=== PATIENT | female | born 1965 | race Caucasian/White ===

== ENCOUNTER 2019-11-17 21:30 | Emergency (ER) | payer OTHER ==
[~2019-11-17] VITALS: Ht 170.2 cm; Wt 61.2 kg
--- OUTSIDE RECORDS SUMMARY | ~2019-11-17 | XMS | Encounter Summary ---
Demographics + + + | Address | [address] | | | [place] [address] | + + + | Home Phone | | + + + | Preferred Language | Unknown | + + + | Marital Status | Single | + + + | Evangelical Affiliation | NRP | + + + | Race | White | + + + | Ethnic Group | Not or | + + + Author + + + | Organization | Unknown | + + + | Address | Unknown | + + + | Phone | Unavailable | + + + Support + + +---------+ + | Name | Relationship | Address | Phone | + + +---------+ + | Citlali Montes De Oca | ECON | Unknown | | + + +---------+ + Care Team Providers + +------+ + | Care Bridge Contractor Name | Role | Phone | + +------+ + | Saumya Mohamud PA-C | | + +------+ + Encounter Details +--------+--------+ + + + | Date | Type | Department | Care Team | Description | +--------+--------+ + + + | 05/20/ | Travel | | | | | 2019 | | | | | +--------+--------+ + + + Social History + +-------+ +--------+------+ | Tobacco Use | Types | Packs/Day | Years | Date | | | | | Used | | + +-------+ +--------+------+ | Never Smoker | | | | | + +-------+ +--------+------+ + + +---+---+ | Smokeless Tobacco: | Chew, Snuff | | | | Never Used | | | | + + +---+---+ + + +---------+ + | Alcohol Use | Drinks/Week | oz/Week | Comments | + + +---------+ + | No | | | | + + +---------+ + + + + | Sex Assigned at | Date Recorded | | | | + + + | Not on file | | + + + + + + + | Job Start Date | Occupation | Industry | + + + + | Not on file | Not on file | Not on file | + + + + + + + + | Travel History | Travel Start | Travel End | + + + + + + | No recent travel history available. | + + documented as of this encounter Plan of Treatment Not on filedocumented as of this encounter Visit Diagnoses Not on filedocumented in this encounter"
--- OUTSIDE RECORDS SUMMARY | ~2019-11-17 | XMS | Encounter Summary ---
Demographics + + + | Address | [address] | | | [place] [address] | + + + | Home Phone | | + + + | Preferred Language | Unknown | + + + | Marital Status | Single | + + + | Adventist Affiliation | NRP | + + + | Race | White | + + + | Ethnic Group | Not or | + + + Author + + + | Author | [facility] | + + + | Organization | [facility] | + + + | Address | Unknown | + + + | Phone | Unavailable | + + + Support + + +---------+ + | Name | Relationship | Address | Phone | + + +---------+ + | Citlali Montes De Oca | ECON | Unknown | | + + +---------+ + Care Team Providers + +------+ + | Care Roof Bolting Coal Miner Name | Role | Phone | + +------+ + | Saumya Mohamud PA-C | PCP | | + +------+ + Reason for Visit + + + | Reason | Comments | + + + | Bone Density Scan | | + + + Encounter Details +--------+---------+ + + + | Date | Type | Department | Care Team | Description | +--------+---------+ + + + | 05/05/ | Office | Bone Density at | | Screening for | | 2018 | Visit | [facility] [address] | | osteoporosis | | | | e [place] for | | (Primary Dx); | | | | Health and Healing | | Depo-Provera | | | | [place] | | contraceptive status | | | | floor [place], [place] | | | | | | [address] | | | | | | [phone] | | | +--------+---------+ + + + Social History + +-------+ [...] + + documented as of this encounter Progress Regine Gonzalez - 05/05/2018 10:30 AM PDTBone density scans performed. DXA scan Images are located on the Imaging Tab (PACS), and when completed, the final Interp retation report will be scanned into [employer] and attached to the Images. Thank you. documented in this encoun ter Plan of Treatment Not on filedocumented as of this encounter Procedures + +--------+ + + + | Procedure Name | Priori | Date/Time | Associated Diagnosis | Comments | | | ty | | | | + +--------+ + + + | BONE DENSITOMETRY | Routin | 05/05/2018 | Depo-Provera | Results for this | | | e | 10:27 AM | contraceptive status | procedure are in the | | | | PDT | | results section. | + +--------+ + + + documented in this encounter Results BONE DENSITOMETRY (05/05/2018 10:27 AM PDT) + + | Specimen | + + | | + + + + + | Narrative | Performed At | + + + | | | + + + + +---------+ + + | Performing | Address | City/State/Zipcode | Phone Number | | Organization | | | | + +---------+ + + | [facility] | | | | + +---------+ + + documented in this encounter Visit Diagnoses + + | Diagnosis | + + | Screening for osteoporosis - Primary Special screening for osteoporosis | + + | Depo-Provera contraceptive status Surveillance of other previously prescribed | | contraceptive method | + + documented in this encounter"
--- OUTSIDE RECORDS SUMMARY | ~2019-11-17 | XMS | Encounter Summary ---
Demographics + + + | Address | [address] | | | [place] [address] | + + + | Home Phone | | + + + | Preferred Language | Unknown | + + + | Marital Status | Single | + + + | Zoroastrianism Affiliation | NRP | + + + | Race | White | + + + | Ethnic Group | Not or | + + + Author + + + | Author | [facility] | + + + | Organization | [facility] | + + + | Address | Unknown | + + + | Phone | Unavailable | + + + Support + + +---------+ + | Name | Relationship | Address | Phone | + + +---------+ + | Citlali Montes De Oca | ECON | Unknown | | + + +---------+ + Care Team Providers + +------+ + | Care Meters Superintendent Name | Role | Phone | + +------+ + | Saumya Mohamud PA-C | PCP | | + +------+ + Encounter Details +--------+ + + + + | Date | Type | Department | Care Team | Description | +--------+ + + + + | 08/03/ | Telephone | [facility] Primary Care | Suzette Causey, | | | 2019 | | at [place] [address] | [address] | | | | [address] | [address] | | | | | [place], [place] | [place], [place] | | | | | [address] | [phone] | | | | | | | | | | | | (Fax) | | +--------+ + + + + Social History + +-------+ [...]
--- OUTSIDE RECORDS SUMMARY | ~2019-11-17 | XMS | Encounter Summary ---
Demographics + + + | Address | [address] | | | [place] [address] | + + + | Home Phone | | + + + | Preferred Language | Unknown | + + + | Marital Status | Single | + + + | Synagogue Affiliation | NRP | + + + [...] Team Providers + +------+ + | Care Flight Physician Name | Role | Phone | + +------+ + | Saumya Mohamud PA-C | | + +------+ + Encounter Details +--------+--------+ + + + | Date | Type | Department | Care Team | Description | +--------+--------+ + + + | 03/05/ | Travel | | | | | [...]
--- OUTSIDE RECORDS SUMMARY | ~2019-11-17 | XMS | Encounter Summary ---
Demographics + + + | Address | [address] | | | [place] [address] | + + + | Home Phone | | + + + | Preferred Language | Unknown | + + + | Marital Status | Single | + + + | Druze Affiliation | NRP | + + + | Race | White | + + + | Ethnic Group | Not or | + + + Author + + + | Author | [facility] | + + + | Organization | [facility] | + + + | Address | Unknown | + + + | Phone | Unavailable | + + + Support + + +---------+ + | Name | Relationship | Address | Phone | + + +---------+ + | Citlali Montes De Oca | ECON | Unknown | | + + +---------+ + Care Team Providers + +------+ + | Care Slubber Operator Name | Role | Phone | + +------+ + | Saumya Mohamud PA-C | PCP | | + +------+ + Encounter Details +--------+ + + + + | Date | Type | Department | Care Team | Description | +--------+ + + + + | 08/03/ | Telephone | [facility] Primary Care | Suzette Causey, | | | 2019 | | at [place] [address] | [address] | | | | [address] | [address] | | | | | [place], [place] | [place], [place] | | | | | [address] | [address] | | | | | | | [...]
--- OUTSIDE RECORDS SUMMARY | ~2019-11-17 | XMS | Encounter Summary ---
Demographics + + + | Address | [address] | | | [place] [address] | + + + | Home Phone | | + + + | Preferred Language | Unknown | + + + | Marital Status | Single | + + + | Episcopal Affiliation | NRP | + + + | Race | White | + + + | Ethnic Group | Not or | + + + Author + + + | Author | [facility] | + + + | Organization | [facility] | + + + | Address | Unknown | + + + | Phone | Unavailable | + + + Support + + +---------+ + | Name | Relationship | Address | Phone | + + +---------+ + | Citlali Montes De Oca | ECON | Unknown | | + + +---------+ + Care Team Providers + +------+ + | Care Fisher Eel Spear Name | Role | Phone | + +------+ + | Saumya Mohamud PA-C | PCP | | + +------+ + Encounter Details +--------+ + + + + | Date | Type | Department | Care Team | Description | +--------+ + + + + | 02/27/ | Hospital | Radiology/Imaging | Saumya Mohamud, | | | 2017 | Encounter | at [place] [address] | [place] [address] | | | | [address] | [address] | | | | | [address] [place], | [place], [place] | | | | | [place] [address] | [address] | | | | | [phone] | [phone] | | | | | | (Fax) [...] + + documented as of this encounter Medications at Time of Discharge + + + +---------+ + + | Medication | Sig | Dispensed | Refills | Start | End Date | | | | | | Date | | + + + +---------+ + + | amoxicillin 500 mg | Take 2 capsules by | | 0 | 02/27/20 | | | oral capsule | mouth once daily. | | | 18 | 8 | | | For 10 days | | | | | + + + +---------+ + + | metroNIDAZOLE 500 | Take 1 tablet by | 14 | 0 | 02/24/20 | | | mg oral | mouth every twelve | tablet | | 18 | 8 | | tabletIndications: | hours for 7 days. | | | | | | bacterial vaginosis, | Indications: | | | | | | trichomoniasis | bacterial infection, | | | | | | | bacterial infection | | | | | + + + +---------+ + + documented as of this encounter Plan of Treatment Not on filedocumented as of this encounter Procedures + +--------+ + + + | Procedure Name | Priori | Date/Time | Associated Diagnosis | Comments | | | ty | | | | + +--------+ + + + | X-RAY FOOT 2 VIEWS | Routin | 02/27/2018 | Jose Cruzion of great | Results for this | | LEFT | e | 8:57 AM | toe of left foot | procedure are in the | | | | PDT | | results section. | + +--------+ + + + documented in this encounter Results X-RAY FOOT 2 VIEWS LEFT (02/27/2018 8:57 AM PDT) + + | Specimen | + + | | + + + + + | Narrative | Performed At | + + + | EXAM: FOOT 2 VIEWS LEFT HISTORY: Bone pain, foot COMPARISON: | [facility] | | None available at the time of dictation. FINDINGS: There is | RADIOLOGY VOICE | | no fracture, dislocation, or focal osseous destruction. Hallux valgus | RECOGNITION 2 | | deformity with osseous and soft tissue bunion and a superimposed mild | | | first MTP joint degenerative changes are noted. There are also mild | | | degenerative changes of the first interphalangeal joint. There are | | | prominent calcaneal dorsal and plantar enthesophytes. Type I accessory | | | navicular. IMPRESSION: 1. No acute osseous abnormality. | | | 2. Hallux valgus deformity with osseous and soft tissue bunion. 3. | | | Mild first MTP and IP joint degenerative changes 4. Calcaneal | | | dorsal and plantar enthesopathy.. I have personally reviewed the | | | images and, if necessary, edited the report. I agree with the report | | | as now presented. Final signature: Odilon Becerra MD | | | 02/27/2018 9:56 AM Preliminary: Lan Dick MD Dictation | | | initiated: Lan Dick MD 02/27/2018 9:21 AM | | + + + + + | Procedure Note | + + | Service Account, Radiant Res In Interface - 02/27/2018 9:57 AM PDT EXAM: FOOT 2 | | VIEWS LEFT HISTORY: Bone pain, foot COMPARISON: None available at the time of dictation. | | FINDINGS: There is no fracture, dislocation, or focal osseous destruction. Hallux | | valgus deformity with osseous and soft tissue bunion and a superimposed mild first MTP | | joint degenerative changes are noted. There are also mild degenerative changes of the | | first interphalangeal joint. There are prominent calcaneal dorsal and plantar | | enthesophytes. Type I accessory navicular. IMPRESSION: 1. No acute osseous abnormality. | | 2. Hallux valgus deformity with osseous and soft tissue bunion. 3. Mild first MTP and | | IP joint degenerative changes 4. Calcaneal dorsal and plantar enthesopathy.. I have | | personally reviewed the images and, if necessary, edited the report. I agree with the | | report as now presented. Final signature: Odilon Becerra MD 02/27/2018 9:56 AM | | Preliminary: Lan Dick MD Dictation initiated: Lan Dick MD 02/27/2018 9:21 AM | | | |1. No acute osseous abnormality. | | | |2. Hallux valgus deformity with osseous and soft tissue bunion. | | | |3. Mild first MTP and IP joint degenerative changes | | | |4. Calcaneal dorsal and plantar enthesopathy.. | | | |I have personally reviewed the images and, if necessary, edited the report. I agree with e report as now presented. | | | |Final signature: Odilon Becerra MD 02/27/2018 9:56 AM | |Preliminary: Lan Dick MD | |Dictation initiated: Lan Dick MD 02/27/2018 9:21 AM | + + + +---------+ + + | Performing | Address | City/State/Zipcode | Phone Number | | Organization | | | | + +---------+ + + | [facility] | | | | | VOICE RECOGNITION 2 | | | | + +---------+ + + documented in this encounter Visit Diagnoses + + | Diagnosis | + + | Bunion of great toe of left foot Bunion | + + documented in this encounter"
--- OUTSIDE RECORDS SUMMARY | ~2019-11-17 | XMS | Encounter Summary ---
Demographics + + + | Address | [address] | | | [place] [address] | + + + | Home Phone | | + + + | Preferred Language | Unknown | + + + | Marital Status | Single | + + + | Yazidism Affiliation | NRP | + + + | Race | White | + + + | Ethnic Group | Not or | + + + Author + + + | Author | [facility] | + + + | Organization | [facility] | + + + | Address | Unknown | + + + | Phone | Unavailable | + + + Support + + +---------+ + | Name | Relationship | Address | Phone | + + +---------+ + | Citlali Montes De Oca | ECON | Unknown | | + + +---------+ + Care Team Providers + +------+ + | Care Beam Dyer Recessed Vat Name | Role | Phone | + +------+ + | Saumya Mohamud PA-C | PCP | | + +------+ + Reason for Referral Physical Therapy (Routine) +--------+--------+ + + + + | Status | Reason | Specialty | Diagnoses / | Referred By | Referred To | | | | | Procedures | Contact | Contact | +--------+--------+ + + + + | Closed | | Physical | Diagnoses | Hilal, | [facility] | | | | Therapy | | MD Lisa | [facility] | | | | | Osteoarthrit | [address] | [address] | | | | | is of both | [facility] | [address] | | | | | shoulders, | Rd | [place] | | | | | unspecified | [place], [place] | [address] | | | | | osteoarthrit | [address] | Phone: | | | | | is type | Phone: | [phone] | | | | | Strain of | [phone] | Fax: | | | | | other | Fax: | [phone] | | | | | muscles, | [phone] | | | | | | fascia and | | | | | | | tendons at | | | | | | | shoulder and | | | | | | | upper arm | | | | | | | level, right | | | | | | | arm, | | | | | | | initial | | | | | | | encounter | | | | | | | Procedures | | | | | | | PHYSICAL | | | | | | | THERAPY | | | | | | | REFERRAL | | | | | | | EVAL AND | | | | | | | TREAT | | | +--------+--------+ + + + + Reason for Visit + + + | Reason | Comments | + + + | Back pain | | + + + Encounter Details +--------+---------+ + + + | Date | Type | Department | Care Team | Description | +--------+---------+ + + + | 05/20/ | Office | [facility] Primary Care | Lisa Gutiérrez MD | Strain of right | | 2019 | Visit | at [place] [address] | [address] | trapezius muscle, | | | | [address] | [address] [place], | initial encounter | | | | [place], [place] | [place] [address] | (Primary Dx); | | | | [address] | [phone] | Arthritis of | | | | [phone] | | glenohumeral joint; | | | | | | Primary | | | | | | osteoarthritis of | | | | | | both shoulders; | | | | | | Elevated blood | | | | | | pressure reading | +--------+---------+ + + + Social History [...] + + documented as of this encounter Last Filed Vital Signs + + + + + | Vital Sign | Reading | Time Taken | Comments | + + + + + | Blood Pressure | 148/64 | 05/20/2019 2:05 PM | | | | | PDT | | + + + + + | Pulse | 114 | 05/20/2019 2:05 PM | | | | | PDT | | + + + + + | Temperature | 36.8 C (98.3 F) | 05/20/2019 2:05 PM | | | | | PDT | | + + + + + | Respiratory Rate | - | - | | + + + + + | Oxygen Saturation | - | - | | + + + + + | Inhaled Oxygen | - | - | | | Concentration | | | | + + + + + | Weight | 63 kg (139 lb) | 05/20/2019 2:05 PM | | | | | PDT | | + + + + + | Height | - | - | | + + + + + | Body Mass Index | - | - | | + + + + + documented in this encounter Progress Notes Star Leon MD - 05/20/2019 2:00 PM PDTFormatting of this note might be different fro m the original. Attending Preceptor Resident Supervision Note I am familiar with this patient's medical history and the current active problems as discus sed with Lisa Gutiérrez MD. We reviewed the assessment and plan and I agree with the plan as outlined. ICD-10-CM 1. Strain of right trapezius muscle, initial encounter S46.811A cyclobenzaprine 5 mg oral t ablet PHYSICAL THERAPY REFERRAL naproxen 500 mg oral tablet 2. Arthritis of glenohumeral joint M19.019 PHYSICAL THERAPY REFERRAL naproxen 500 mg oral tablet 3. Primary osteoarthritis of both shoulders M19.011 naproxen 500 mg oral tablet M19.012 4. Elevated blood pressure reading R03.0 I entered my findings as needed, and agree with the documentation as noted in this encounte rAva LEON MD, FAAFP P M CYNDEELisa Gutiérrez MD - 05/20/2019 2:00 PM PDTFormatting of this note might be different fr om the original. [facility] [place] SUBJECTIVE CC: Back pain HPI: #Back pain - having a hard time moving her head and a lot of pain in her neck head and shoulders - going on the for the past week or so - Not sure if its related to her arthritis in her shoulders - Had a steroid shot in her right shoulder, never got the one in her left shoulder - First thing she noticed a week ago - first noticed in her back of her neck, then noticed in her shoulder - Worse with movement, a heating pad helps - Movements that make it worse: turning her head, using her arms - No big accidents, falls or trauma - NO fevers or chills, has chronic numbness or tingling in her hands, has been having a shara d time lifing things due to pain ROS: all systems negative per patient report No past medical history on file. Social History Socioeconomic History Marital status: Single Spouse name: Not on file Number of children: Not on file Years of education: Not on file Highest education level: Not on file Occupational History Not on file Social Needs Financial resource strain: Not on file Food insecurity: Worry: Not on file Inability: Not on file Transportation needs: Medical: Not on file Non-medical: Not on file Tobacco Use Smoking status: Never Smoker Smokeless tobacco: Never Used Substance and Sexual Activity Alcohol use: No Drug use: No Sexual activity: Yes Partners: Male Lifestyle Physical activity: Days per week: Not on file Minutes per session: Not on file Stress: Not on file Relationships Social connections: Talks on phone: Not on file Gets together: Not on file Attends uatsdin service: Not on file Active member of club or organization: Not on file Attends meetings of clubs or organizations: Not on file Relationship status: Not on file Other Topics Concern Not on file Social History Narrative Not on file No Known Allergies OBJECTIVE BP 148/64 (BP Location: Right upper arm, Patient Position: Sitting) | Pulse 114 | Temp 36 .8 C (98.3 F) (Oral) | Wt 63 kg (139 lb) There is no height or weight on file to calculate BMI. Physical Exam Constitutional: General: She is not in acute distress. Appearance: She is well-developed. She is not diaphoretic. HENT: Head: Normocephalic and atraumatic. Eyes: General: No scleral icterus. Right eye: No discharge. Left eye: No discharge. Conjunctiva/sclera: Conjunctivae normal. Neck: Musculoskeletal: Normal range of motion. No neck rigidity or muscular tenderness. Vascular: No JVD. Pulmonary: Effort: Pulmonary effort is normal. No respiratory distress. Musculoskeletal: General: No deformity. Comments: Tender to palpation along L trap Full cervical ROM 5/5 strength in UE, sensation intact, radial pulses palpable, cap refill < 2 seconds Lymphadenopathy: Cervical: No cervical adenopathy. Skin: General: Skin is warm and dry. Capillary Refill: Capillary refill takes less than 2 seconds. Findings: No erythema. Neurological: Mental Status: She is alert and oriented to person, place, and time. Psychiatric: Behavior: Behavior normal. Thought Content: Thought content normal. ASSESSMENT/PLAN Misty was seen today for back pain. Diagnoses and all orders for this visit: Strain of right trapezius muscle, initial encounter Arthritis of glenohumeral joint Suspect musculoskeletal strain given physical exam and distribution of pain. Full cervical ROM and no loss of sensation or neurologic findings concerning for herniated disc. Trigger p oint injections along medial aspect of right trapezius and given short course muscle relaxer and referral to PT. - cyclobenzaprine 5 mg oral tablet; Take 1 tablet by mouth three times daily as needed. Do not use longer than 2-3 weeks. - PHYSICAL THERAPY REFERRAL - naproxen 500 mg oral tablet; Take 1 tablet by mouth twice daily as needed for moderat e pain. Procedure: A series of 3 trigger point injections were performed at the sites of maximal tenderness us ing 4 mL 1% plain Lidocaine This was well tolerated, and followed by minimal relief of pain . Elevated blood pressure reading BP on review has been in 140's systolic for the past several readings, discussed with patie nt today and encouraged to check BP at home and follow up with PCP. Suspect essential hypert ension. Return in about 1 month (around 06/20/2019). Lisa Gutiérrez MD [facility], PGY-3 Pager [phone] signed by Lisa Gutiérrez MD at 05/20/2019 5:55 PM Mitzi Buenrostro MA - 05/20/2019 2:00 PM PDTPt is here for back pain X 5 days documented in this encounter Plan of Treatment Not on filedocumented as of this encounter Visit Diagnoses + + | Diagnosis | + + | Strain of right trapezius muscle, initial encounter - Primary | + + | Arthritis of glenohumeral joint | + + | Primary osteoarthritis of both shoulders | + + | Elevated blood pressure reading Elevated blood pressure reading without diagnosis of | | hypertension | + + documented in this encounter"
--- OUTSIDE RECORDS SUMMARY | ~2019-11-17 | XMS | Encounter Summary ---
Demographics + + + | Address | [address] | | | [place] [address] | + + + | Home Phone | | + + + | Preferred Language | Unknown | + + + | Marital Status | Single | + + + | Bahai Affiliation | NRP | + + + | Race | White | + + + | Ethnic Group | Not or | + + + Author + + + | Author | [facility] | + + + | Organization | [facility] | + + + | Address | Unknown | + + + | Phone | Unavailable | + + + Support + + +---------+ + | Name | Relationship | Address | Phone | + + +---------+ + | Citlali Montes De Oca | ECON | Unknown | | + + +---------+ + Care Team Providers + +------+ + | Care Recruiting Assistant Name | Role | Phone | + +------+ + | Saumya Mohamud PA-C | PCP | | + +------+ + Reason for Visit + + + | Reason | Comments | + + + | Rib Pain | | + + + Encounter Details +--------+---------+ + + + | Date | Type | Department | Care Team | Description | +--------+---------+ + + + | 02/08/ | Office | [facility] Primary [facility] | Rickey, | Acute right flank | | 2019 | Visit | at [place] [address] | Saud Loja PA-C | pain (Primary Dx); | | | | [address] | [address] | Primary | | | | [address] [place], [place] | [address] | osteoarthritis of | | | | [address] | [place] | both shoulders; | | | | [phone] | [address] | Primary | | | | | [phone] | osteoarthritis of | | | | | | both hands | +--------+---------+ + + + Social History [...] + + + | Blood Pressure | 130/86 | 02/08/2019 8:47 AM | | | | | PDT | | + + + + + | Pulse | 100 | 02/08/2019 8:47 AM | | | | | PDT | | + + + + + | Temperature | 36.9 C (98.5 F) | 02/08/2019 8:47 AM | | | | | PDT | | + + + + + | Respiratory Rate | 14 | 02/08/2019 8:47 AM | | | | | PDT | | + + + + + | Oxygen Saturation | - | - | | + + + + + | Inhaled Oxygen | - | - | | | Concentration | | | | + + + + + | Weight | 60.8 kg (134 lb) | 02/08/2019 8:47 AM | | | | | PDT | | + + + + + | Height | - | - | | + + + + + | Body Mass Index | - | - | | + + + + + documented in this encounter Patient Instructions Patient Instructions Saud Lang PA-C - 02/08/2019 8:45 AM PDTYour urine studie s are reassuring today that the urinary tract infection has resolved. However, if you start having a return of any urinary frequency, pain with peeing, blood in your urine or worsenin g flank pain or fever, then return to clinic for follow up. Please schedule your appointment with the Sports Medicine provider for your steroid injecti on as previously planned. documented in this encounter Progress Notes Saud Lang PA-C - 02/08/2019 8:45 AM PDTAttending Preceptor Supervision Note Patient was seen and examined with ZOILA Mckay. Briefly, a 53 y.o. year old female with the following diagnoses: 1. Acute right flank pain - UA 10 DIP, POC 2. Primary osteoarthritis of both shoulders - naproxen 500 mg oral tablet; Take 1 tablet by mouth twice daily as needed for moderate pa in. Dispense: 40 tablet; Refill: 2 3. Primary osteoarthritis of both hands A student assisted with documenting this service. I saw the patient and reviewed and verif ied all information documented by the student and made modifications to such information, wh en appropriate. I agree with the documentation of the medical/PA student's note. Return in about 2 weeks (around 02/22/2019), or if symptoms worsen or fail to improve, for [facility] follow up.. ANN Mendoza, VINI-CElectronically signed by Saud Lang PA-C at 2018 12:29 PM Jayda Leonard - 02/08/2019 8:45 AM PDT SUBJECTIVE CC: Rib Pain HPI: 53 yo female with PMHx sig for prior kidney infections and osteoarthritis presents for R sided flank pain x months Previously seen at the ED on 12/21 for UTI and treated with Augmentin. Pt then return to the ED on 01/05 for continued R flank pain after finishing Augmentin. At that ED visit her UA wa s negative except for calcium oxalte. A CT showed possible perinephritic stranding and neg f or stones or hydronephrosis. Pt was given acetaminophen and discharged home. Today pt states that she has continued intermittent R sided flank pain but she cannot think of a specific trigger but could be related to her lifting heavy objects at work. Denies fev ers, chills, hematuria, dysuria, changes in bowel or bladder. Pt also states that for the last two weeks she has been having L sided anterior rib pain. N o injury noted. Described as a dull ache. Had an episode where it was very painful for her t o sit up straight. Overall improving. Endorses pain with deep breathing. Denies SOB, cough, abd pain. Chronic Arthritis pain in her shoulder and hands is making is hard for her work. Has been t aking meloxicam prescribed by her PCP which she is not sure if it helps. Have been trying to make an appt with sports medicine to get shoulder injections but has been unable to make it due to her work schedule. Review of Systems Constitutional: Negative for chills and fever. Respiratory: Negative for cough, sputum production and shortness of breath. Cardiovascular: Negative for chest pain and palpitations. Gastrointestinal: Negative for abdominal pain, constipation and diarrhea. Genitourinary: Positive for flank pain. Negative for dysuria, frequency, hematuria and urge ncy. Musculoskeletal: Positive for joint pain. 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 Physical Exam Constitutional: She appears well-developed and well-nourished. No distress. HENT: Head: Normocephalic and atraumatic. Pulmonary/Chest: Effort normal and breath sounds normal. No stridor. No respiratory distres s. She has no wheezes. She has no rales. She exhibits no tenderness. Abdominal: Soft. Bowel sounds are normal. She exhibits no distension and no mass. There is no tenderness. There is no rebound and no guarding. Musculoskeletal: Hands: L: no erythema, edema, or ulnar deviation, DIP tender to palpation. Full ROM R: no erythema, edema, or ulnar deviation, DIP tender to palpation. Full ROM Skin: She is not diaphoretic. Urine dipstick today 02/08 shows negative for all components. ASSESSMENT/PLAN Misty was seen today for rib pain. Diagnoses and all orders for this visit: Acute right flank pain- etiology R sided flank pain unknown but differential includes larisa nued UTI pain s/p treatment with antibiotics, musculoskeletal, recurrent UTI, or other. Less likely to be recurrent UTI given history and negative urine dipstick in clinic. More likely to be continued pain s/p antibiotic treatment or musculoskeletal given the waxing-waning na ture of pain and physical demands of her job. Encouraged go stretching and NSAIDs if pain co ntinues. Discussed that patient should call or return to clinic if she begins to get worseni ng pain or urinary symptoms. - UA 10 DIP, POC Primary osteoarthritis of both hands Primary osteoarthritis of both shoulders- Chronic arthritis pain. Last imaging 12/13 shows s evere bilateral glenohumeral osteoarthritis and bilateral osteoarthritis of the hands. Will help patient make appt with sports medicine. Trial of naproxen due to meloxicam not providin g much benefit. - naproxen 500 mg oral tablet; Take 1 tablet by mouth twice daily as needed for moderat e pain. Return in about 2 weeks (around 02/22/2019), or if symptoms worsen or fail to improve, for [facility] follow up.. Jayda MARTINI Student imson, [place] MA - 8:45 AM PDTPt has left side rib pain. Was seen twice at ED for bladder infection. Pt states she still has symptoms 1 2:29 PM PDTdocumented in this encounter Plan of Treatment Not on filedocumented as of this encounter Procedures + +--------+ + + + | Procedure Name | Priori | Date/Time | Associated Diagnosis | Comments | | | ty | | | | + +--------+ + + + | UA DIPSTICK 10 DIP | Routin | 02/08/2019 | Acute right flank | Results for this | | W/O MICRO | e | 9:26 AM | pain | procedure are in the | | (AUTOMATED), POC | | PDT | | results section. | + +--------+ + + + documented in this encounter Results UA 10 DIP, POC (02/08/2019 9:26 AM PDT) + + + + + + | Component | Value | Ref Range | Performed | Pathologist | | | | | At | Signature | + + + + + + | COLOR (UA | Yellow | | [facility] | | | DIP), POC | | | [facility] | | [facility] | | + + + + + + | APPEARANCE | Clear | | [facility] | | | (UA DIP), | | | [facility] | | | POC | | | [facility] | | + + + + + + | LEUKOCYTES | Negative | Negative | [facility] | | | (UA DIP), | | | [facility] | | | POC | | | [facility] | | + + + + + + | NITRITES | Negative | Negative | [facility] | | | (UA DIP), | | | [facility] | | | POC | | | [facility] | | + + + + + + | UROBILINOGE | 0.2 | 0.2 - 1.0 | [facility] | | | N (UA DIP), | | E.U./dL | [facility] | | | POC | | | [facility] | | + + + + + + | PROTEIN (UA | Negative | Neg - Trace | [facility] | | | DIP), POC | | mg/dL | [facility] | | | | [facility] | | + + + + + + | PH (UA | 6.0 | 5.0 - 8.0 | [facility] | | | DIP), POC | | | [facility] | | | | [facility] | | + + + + + + | BLOOD (UA | Negative | Negative | [facility] | | | DIP), POC | | | [facility] | | + + + + + + | SPECIFIC | 1.020 | 1.005 - 1.030 | [facility] | | | GRAVITY (UA | | | [facility] | | | DIP), POC | | | CLINIC | | + + + + + + | KETONES (UA | Negative | Negative mg/dL | [facility] | | | DIP), POC | | | [facility] | | | | [facility] | | + + + + + + | BILIRUBIN | Negative | Negative | [facility] | | | (UA DIP), | | | [facility] | | | POC | | | [facility] | | + + + + + + | GLUCOSE (UA | Negative | Negative - | [facility] | | | DIP), POC | | Trace mg/dL | [facility] | | | | [facility] | | + + + + + + + + | Specimen | + + | Urine - Urine | | (substance) | + + + + + + + | Performing | Address | City/State/Zipcode | Phone Number | | Organization | | | | + + + + + | [facility] | [id number] | [place], [place] | [phone] | | [facility] | Road | [address] | | + + + + + documented in this encounter Visit Diagnoses + + | Diagnosis | + + | Acute right flank pain - Primary Abdominal pain, unspecified site | + + | Primary osteoarthritis of both shoulders | + + | Primary osteoarthritis of both hands | + + documented in this encounter"
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
--- OUTSIDE RECORDS SUMMARY | ~2019-11-17 | XMS | Encounter Summary ---
Demographics + + + | Address | [address] | | | [place] [address] | + + + | Home Phone [...] Team Providers + +------+ + | Care Trade Sales Assistant Name | Role | Phone | + +------+ + | Saumya Mohamud PA-C | PCP | | + +------+ + Reason for Visit + + + | Reason | Comments | + + + | Evaluation of test | | | results | | + + + Encounter Details +--------+ + + + + | Date | Type | Department | Care Team | Description | +--------+ + + + + | 05/10/ | Telephone | [facility] | Saumya Mohamud, | Evaluation of test | | 2019 | | at [place] [address] | PA-C [address] | results | | | | [address] | [address] | | | | | [place], [place] | [place], [place] | | | | | [address] | [address] | | | | | [phone] | [phone] | | | | | | | | +--------+ + + + + [...]
--- OUTSIDE RECORDS SUMMARY | ~2019-11-17 | XMS | Encounter Summary ---
Demographics + + + | Address | [address] | | | [place] [address] | + + + | Home Phone | | + + + | Preferred Language | Unknown | + + + | Marital Status | Single | + + + | Orthodoxy Affiliation | NRP | + + + | Race | White | + + + | Ethnic Group | Not or | + + + Author + + + | Author | [facility] | + + + | Organization | [facility] | + + + | Address | Unknown | + + + | Phone | Unavailable | + + + Support + + +---------+ + | Name | Relationship | Address | Phone | + + +---------+ + | Citlali Montes De Oca | ECON | Unknown | | + + +---------+ + Care Team Providers + +------+ + | Care Evaporative Cooler Installer Name | Role | Phone | + +------+ + | Saumya Mohamud PA-C | PCP | | + +------+ + Reason for Referral Consultation (Routine) +--------+--------+ + + + + | Status | Reason | Specialty | Diagnoses / | Referred By | Referred To | | | | | Procedures | Contact | Contact | +--------+--------+ + + + + | Closed | | Non [facility] | Diagnoses | [place], | [place], | | | | Department | Bunion of | Saumya Feliz, | Beltran Gross DPM | | | | | great toe of | [place] [address] | [place] | | | | | left foot | [address] | Orthopedic | | | | | PLEASE EVAL | [facility] | [facility] [address] | | | | | AND TREAT | [place], | [address] | | | | | Procedures | [place] | [address] | | | | | CONSULT TO | [address] | EMMANUEL [facility] | | | | | PODIATRY | Phone: | [phone] Phone: | | | | | | [phone] | [phone] | | | | | | Fax: | Fax: | | | | | | [phone] | [phone] | +--------+--------+ + + + + Reason for Visit + + + | Reason | Comments | + + + | Referral Needed | | + + + Encounter Details +--------+---------+ + + + | Date | Type | Department | Care Team | Description | +--------+---------+ + + + | 02/27/ | Office | [facility] Primary Care | Saumya Mohamud, | Bunion of great toe | | 2018 | Visit | at [place] [address] | [place] [address] [address] | of left foot | | | | [address] | [address] | (Primary Dx); | | | | [place] [address] [place], [place] | [place], [place] | Tetanus, diphtheria, | | | | [address] | [phone] | and acellular | | | | [phone] | [phone] | pertussis (Tdap) | | | | | | vaccination | | | | | | declined; Cervical | | | | | | cancer screening; | | | | | | Depo-Provera | | | | | | contraceptive | | | | | | status; Colon cancer | | | | | | screening | +--------+---------+ + + + Social History [...] + + + | Blood Pressure | 112/68 | 02/27/2018 8:02 AM | | | | | PDT | | + + + + + | Pulse | 93 | 02/27/2018 8:02 AM | | | | | PDT | | + + + + + | Temperature | 36.7 C (98.1 F) | 02/27/2018 8:02 AM | | | | | PDT | | + + + + + | Respiratory Rate | - | - | | + + + + + | Oxygen Saturation | 99% | 02/27/2018 8:02 AM | | | | | PDT | | + + + + + | Inhaled Oxygen | - | - | | | Concentration | | | | + + + + + | Weight | 64.6 kg (142 lb 6.4 | 02/27/2018 8:02 AM | | | | oz) | PDT | | + + + + + | Height | - | - | | + + + + + | Body Mass Index | - | - | | + + + + + documented in this encounter Progress Notes Suamya Mohamud PA-C - 02/27/2018 8:05 AM PDT SUBJECTIVE: Chief complaint: Referral Needed Misty Watkins is a 52 y.o. nonsmoker who presents with chronic left bunion pain x years, a nd need for bone density screening 1. Left bunion Had bunion surgery on right foot a couple years ago at [place] which was very successful and is now pain-free on the right Still having bunion on left foot, interested in surgery for left side Better with: rest, ice, NSAIDs (no AE), supportive shoes Worse with: overuse, too much time on feet Lots of bunions in her family 2. 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 At the first sign of an outbreak, Disp: , Rfl: amoxicillin 500 mg oral capsule, Take 2 capsules by mouth once daily. For 10 days, Disp: , Rfl: lidocaine HCl 2 % topical cream, Apply to affected area., Disp: , Rfl: medroxyPROGESTERone 150 mg/mL intramuscular suspension, Inject into the muscle (IM)., Disp: , Rfl: meloxicam 15 mg oral tablet, Take by mouth., Disp: , Rfl: metroNIDAZOLE 500 mg oral tablet, Take 1 tablet by mouth every twelve hours for 7 days. Ind ications: bacterial infection, bacterial infection, Disp: 14 tablet, Rfl: 0 naproxen 500 mg oral tablet, Take by mouth., Disp: , Rfl: OBJECTIVE: Filed Vitals: 02/27/2018 8:02 AM Weight: 64.6 kg (142 lb 6.4 oz) BP: 112/68 Pulse: 93 Temp: 36.7 C (98.1 F) TempSrc: Oral SpO2: 99% PainSc: 06 - Severe PainLoc: Foot (Left) GA: Alert, no apparent distress. Speaks easily and freely, moves easily around exam room. Eye: conjunctivae pink, sclerae anicteric, noninjected. Lids without edema or erythema or m asses. ENT: Nose symmetric no deviation. Hearing intact to normal conversation level. Resp: No retractions, full inspiratory effort.. CV: Skin pink & warm. Cap refill brisk left toes. MSK: Significant hallux valgus left great toe MTP with some overlying skin irritation and e rythema at protrusion of bone/joint. Full AROM left toes. +mild TTP. No swelling, bleeding, discharge. Gait symmetric, appropriate. Neuro: No gross focal deficits, TREADWELL. Sensation intact to light touch left toes. Psych: Good eye contact, affect & mood appropriate, judgement & insight grossly intact, no thought disorder. Oriented to person, place and time. Memory recall appropriate. ASSESSMENT/PLAN: Misty was seen today for referral needed. Diagnoses and all orders for this visit: Bunion of great toe of left foot Comments: Pt interested in surgical options; had successful surgery on right bunion a couple years ag o. Continue ice, NSAIDs, supportive shoes Orders: - X-RAY FOOT 2 VIEWS LEFT; Future - CONSULT TO PODIATRY Tetanus, diphtheria, and acellular pertussis (Tdap) vaccination declined Cervical cancer screening Comments: Due; make appt anytime for pap test Depo-Provera contraceptive status - BONE DENSITOMETRY; Future Colon cancer screening Comments: Pt states she has FIT card and will bring it in; doesn't want another one Reviewed s/s to come back in. If new/worse/persistent symptoms, come back in. Return if symptoms worsen or fail to improve, for left bunion. documented in this encounter Plan of Treatment Not on filedocumented as of this encounter Results BONE DENSITOMETRY (05/05/2018 10:27 [...] | | | + +---------+ + + X-RAY FOOT 2 VIEWS LEFT (02/27/2018 8:57 [...] necessary, edited the report. I agree with th e report as now presented. | | [...] Bunion of great toe of left foot - Primary Bunion | + + | Tetanus, diphtheria, and acellular pertussis (Tdap) vaccination declined | + + | Cervical cancer screening Screening for malignant neoplasm of the cervix | + + | Depo-Provera contraceptive status Surveillance of other previously prescribed | | contraceptive method | + + | Colon cancer screening Special screening for malignant neoplasms, colon | + + documented in this encounter"
--- OUTSIDE RECORDS SUMMARY | ~2019-11-17 | XMS | Encounter Summary ---
Demographics + + + | Address | [address] | | | [place] [address] | + + + | Home Phone | | + + + | Preferred Language | Unknown | + + + | Marital Status | Single | + + + | Catholic Affiliation | NRP | + + + | Race | White | + + + | Ethnic Group | Not or | + + + Author + + + | Author | [facility] | + + + | Organization | [facility] | + + + | Address | Unknown | + + + | Phone | Unavailable | + + + Support + + +---------+ + | Name | Relationship | Address | Phone | + + +---------+ + | Citlali Montes De Oca | ECON | Unknown | | + + +---------+ + Care Team Providers + +------+ + | Care Customer Strategy Manager Name | Role | Phone | + +------+ + | Saumya Mohamud PA-C | PCP | | + +------+ + Reason for Visit + + + | Reason | Comments | + + + | Vaginal discharge | yellowish | + + + Encounter Details +--------+---------+ + + + | Date | Type | Department | Care Team | Description | +--------+---------+ + + + | 02/20/ | Office | [facility] | Reece, | Vaginal discharge | | 2018 | Visit | at [place] [address] | Edilma Feliz MD | (Primary Dx); | | | | [address] | [address] | Screening for | | | | Dylan [address] [place], [place] | [address] | malignant neoplasm | | | | [address] | [place], [place] | of colon; Elevated | | | | [phone] | [phone] | blood-pressure | | | | | [phone] | reading without | | | | | | diagnosis of | | | | | | hypertension | +--------+---------+ + + + Social History [...] + + + | Blood Pressure | 146/100 | 02/20/2018 1:18 PM | | | | | PDT | | + + + + + | Pulse | 90 | 02/20/2018 1:18 PM | | | | | PDT | | + + + + + | Temperature | 36.7 C (98 F) | 02/20/2018 1:18 PM | | | | | PDT | | + + + + + | Respiratory Rate | 15 | 02/20/2018 1:18 PM | | | | | PDT | | + + + + + | Oxygen Saturation | - | - | | + + + + + | Inhaled Oxygen | - | - | | | Concentration | | | | + + + + + | Weight | - | - | | + + + + + | Height | - | - | | + + + + + | Body Mass Index | - | - | | + + + + + documented in this encounter Patient Instructions Patient Instructions Edilma Newell MD - 02/20/2018 1:15 PM PDTYou will get lab a nd/or test results by phone, letter, or MyChart. Please call the office if you don't get res ults within 1 week documented in this encounter Progress Notes Edilma Newell MD - 02/20/2018 1:15 PM PDTSee telephone note. Edilma Newell MD Martínez Bunn MD - 02/20/2018 1:15 PM PDTSee telephone note. Edilma Newell MD Martínez Bunn MD - 02/20/2018 1:15 PM PDTFormatting of this note might be different from the or iginal. SUBJECTIVE CC: Vaginal discharge (yellowish ) Vaginal discharge For about 1 week- yellowish with and odor. No itching or irritation. Male partners- "a couple" of sexual partners in past year, inconsistent condom use No fever, chills, abd/pelvic pain There is no problem list on file for this patient. Social History Substance Use Topics Smoking status: Never Smoker Smokeless tobacco: Never Used Alcohol use No Review of Systems Medication list reviewed Medications at end of visit: No current outpatient prescriptions on file. OBJECTIVE Filed Vitals: 02/20/2018 1:18 PM BP: 146/100 Pulse: 90 Temp: 36.7 C (98 F) TempSrc: Oral Resp: 15 There is no height or weight on file to calculate BMI. Physical Exam Constitutional: She appears well-developed and well-nourished. No distress. Genitourinary: There is no rash or lesion on the right labia. There is no rash or lesion on the left labia. Cervix exhibits no discharge and no friability. Vaginal discharge found. ASSESSMENT/PLAN Misty was seen today for vaginal discharge. Diagnoses and all orders for this visit: Vaginal discharge - VAG PATHOGENS/DNA PROBE (TRICH, G. VAG, PERLITA) - GC / CHLAMYDIA AMP.DET, URINE Will treat based on results. Pap UTD 2015 Screening for malignant neoplasm of colon - OCCULT BLOOD, FECAL BY IMMUNOASSAY; Future Elevated BP Recc recheck Bp in 2-4 weeks No Follow-up on file. Edilma Newell MD There are no Patient Instructions on file for this visit. documented in this encounter Plan of Treatment Not on filedocumented as of this encounter Procedures + +--------+ + + + | Procedure Name | Priori | Date/Time | Associated Diagnosis | Comments | | | ty | | | | + +--------+ + + + | VAG PATHOGENS/DNA | Routin | 02/20/2018 | Vaginal discharge | Results for this | | PROBE (TRICH, G. | e | 1:47 PM | | procedure are in the | | VAG, PERLITA) | | PDT | | results section. | + +--------+ + + + | GC / CHLAMYDIA | Routin | 02/20/2018 | Vaginal discharge | Results for this | | AMP.DET, URINE | e | 1:47 PM | | procedure are in the | | | | PDT | | results section. | + +--------+ + + + documented in this encounter Results GC / CHLAMYDIA AMP.DET, URINE (02/20/2018 1:47 PM PDT) + + + + + + | Component | Value | Ref Range | Performed | Pathologist | | | | | At | Signature | + + + + + + | N.GONORRHOE | NegativeComment: This | Negative | [facility] - | | | AE | assay is used for | | [facility] - | | | AMPLIFIED | detection of ribosomal | | [place] | | | | RNA from Chlamydia | | | | | | trachomatis and | | | | | | Neisseria gonorrhoeae | | | | | | using target | | | | | | amplification with | | | | | | nucleic acid probes in | | | | | | the Aptima Combo 2 | | | | | | assay. Specimen types of | | | | | | throat, rectal, and | | | | | | female urine have not | | | | | | been validated by the | | | | | | FDA. The test has been | | | | | | modified by [facility] | | | | | | [facility]. | | | | + + + + + + | C.TRACHOMAT | Negative | Negative | [facility] | | | IS | | | [facility] - | | | AMPLIFIED | | | [place] | | + + + + + + + + | Specimen | + + | Urine - Urine | | (substance) | + + + + + | Narrative | Performed At | + + + | Specimen Type = Urine | [facility] | | | [facility] | | | [place] | + + + + + + + + | Performing | Address | City/State/Zipcode | Phone Number | | Organization | | | | + + + + + | [facility] | [address] | [place] [address] | | | [place] | | | | + + + + + VAG PATHOGENS/DNA PROBE (TRICH, G. VAG, PERLITA) (02/20/2018 1:47 PM PDT) + + + + + + | Component | Value | Ref Range | Performed | Pathologist | | | | | At | Signature | + + + + + + | TRICHOMONAS | Positive (A) | Negative | [facility] | | | DNA PROBE | | | LABORATORY | | | | | | SERVICES, | | | | | | CORE | | + + + + + + | G. | Positive (A) | Negative | [facility] | | | VAGINALIS | | | LABORATORY | | | DNA PROBE | | | SERVICES, | | | | | | CORE | | + + + + + + | PERLITA SP. | Negative | Negative | [facility] | | | DNA PROBE | | | LABORATORY | | | | | | SERVICES, | | | | | | CORE | | + + + + + + + + | Specimen | + + | Swab - Vagina | + + + + + + + | Performing | Address | City/State/Zipcode | Phone Number | | Organization | | | | + + + + + | [facility] | [address] | [place] [address] | | | SERVICES, CORE | [address] | | | + + + + + documented in this encounter Visit Diagnoses + + | Diagnosis | + + | Vaginal discharge - Primary Leukorrhea, not specified as infective | + + | Screening for malignant neoplasm of colon | + + | Elevated blood-pressure reading without diagnosis of hypertension Elevated blood | | pressure reading without diagnosis of hypertension | + + documented in this encounter
--- OUTSIDE RECORDS SUMMARY | ~2019-11-17 | XMS | Encounter Summary ---
Demographics + + + | Address | [address] | | | [place] [address] | + + + | Home Phone | | + + + | Preferred Language | Unknown | + + + | Marital Status | Single | + + + | Mandaeism Affiliation | NRP | + + + | Race | White | + + + | Ethnic Group | Not or | + + + Author + + + | Author | [facility] | + + + | Organization | [facility] | + + + | Address | Unknown | + + + | Phone | Unavailable | + + + Support + + +---------+ + | Name | Relationship | Address | Phone | + + +---------+ + | Citlali Montes De Oca | ECON | Unknown | | + + +---------+ + Care Team Providers + +------+ + | Care Cryptographic Machine Operator Name | Role | Phone | + +------+ + | Saumya Mohamud PA-C | PCP | | + +------+ + Encounter Details +--------+ + + + + | Date | Type | Department | Care Team | Description | +--------+ + + + + | 12/02/ | Hospital | Radiology/Imaging | Saumya Mohamud, | | | 2018 | Encounter | at [place] [address] | [place] [address] [address] | | | | [address] | [address] | | | | | [address] [place], | [place], [place] | | | | | [place] [address] | [address] | | | | | [phone] | | | | | | | [...] + + + +---------+ + + | acyclovir 400 mg | Take 1 tablet by | 30 | 1 | 12/03/19 | | | oral | mouth five times | tablet | | 19 | | | tabletIndications: | daily. For 5 days at | | | | | | Recurrent cold sores | the first sign of | | | | | | | an outbreak | | | | | + + + +---------+ + + documented as of this encounter Plan of Treatment Not on filedocumented as of this encounter Procedures + +--------+ + + + | Procedure Name | Priori | Date/Time | Associated Diagnosis | Comments | | | ty | | | | + +--------+ + + + | X-RAY HAND 1 VIEWS | Routin | 12/02/2018 | Chronic hand pain, | Results for this | | BILATERAL | e | 7:28 PM | unspecified | procedure are in the | | | | PDT | laterality | results section. | + +--------+ + + + documented in this encounter Results X-RAY HAND 1 VIEWS BILATERAL (12/02/2018 7:28 PM PDT) + + | Specimen | + + | | + + + + + | Narrative | Performed At | + + + | EXAM: HAND 1 VIEW BILATERAL HISTORY: chronic worsening bilat | [facility] | | hand pain x years with known OA COMPARISON: None available at the | RADIOLOGY VOICE | | time of dictation. FINDINGS: Bilaterally, there is relatively | RECOGNITION 2 | | symmetric, severe triscaphe, severe first CMC, mild multifocal MCP, | | | and mild -moderate multifocal interphalangeal joint space narrowing | | | and articular spurring. There is multifocal capsular hydroxyapatite | | | deposition. There is no erosion or periostitis. There is no | | | enthesitis. Particular soft tissue swelling is noted at the | | | interphalangeal joints. There is no suspicious soft tissue | | | mineralization. IMPRESSION: Bilateral multifocal | | | osteoarthrosis, greatest at the thumb bases. I have personally | | | reviewed the images and, if necessary, edited the report. I agree with | | | the report as now presented. Final signature: Aubrey Trimble MD | | | 12/03/2018 8:08 AM Preliminary: Aubrey Trimble MD Dictation | | | initiated: Aubrey Trimble MD 12/03/2018 8:06 AM | | + + + + + | Procedure Note | + + | Service Account, Radiant Res In Interface - 12/03/2018 8:09 AM PDT EXAM: HAND 1 VIEW | | BILATERAL HISTORY: chronic worsening bilat hand pain x years with known OA COMPARISON: | | None available at the time of dictation. FINDINGS: Bilaterally, there is relatively | | symmetric, severe triscaphe, severe first CMC, mild multifocal MCP, and mild -moderate | | multifocal interphalangeal joint space narrowing and articular spurring. There is | | multifocal capsular hydroxyapatite deposition. There is no erosion or periostitis. There | | is no enthesitis. Particular soft tissue swelling is noted at the interphalangeal | | joints. There is no suspicious soft tissue mineralization. IMPRESSION: Bilateral | | multifocal osteoarthrosis, greatest at the thumb bases. I have personally reviewed the | | images and, if necessary, edited the report. I agree with the report as now presented. | | Final signature: Aubrey Trimble MD 12/03/2018 8:08 AM Preliminary: Aubrey Trimble MD | | Dictation initiated: Aubrey Trimble MD 12/03/2018 8:06 AM | | | |Bilateral multifocal osteoarthrosis, greatest at the thumb bases. | | | |I have personally reviewed the images and, if necessary, edited the report. I agree with th e report as now presented. | | | |Final signature: Aubrey Trimble MD 12/03/2018 8:08 AM | |Preliminary: Aubrey Trimble MD | |Dictation initiated: Aburey Trimble MD 12/03/2018 8:06 AM | + + + +---------+ + + | Performing | Address | City/State/Zipcode | Phone Number | | Organization | | | | + +---------+ + + | [facility] | | | | | VOICE RECOGNITION 2 | | | | + +---------+ + + documented in this encounter Visit Diagnoses + + | Diagnosis | + + | Chronic hand pain, unspecified laterality | + + documented in this encounter"
--- OUTSIDE RECORDS SUMMARY | ~2019-11-17 | XMS | Encounter Summary ---
Demographics + + + | Address | [address] | | | [place] [address] | + + + | Home Phone | | + + + | Preferred Language | Unknown | + + + | Marital Status | Single | + + + | Mu-Ism Affiliation | NRP | + + + [...] Team Providers + +------+ + | Care Regional Merchandising Manager Name | Role | Phone | + +------+ + | Saumya Mohamud PA-C | | + +------+ + Encounter Details +--------+--------+ + + + | Date | Type | Department | Care Team | Description | +--------+--------+ + + + | 02/08/ | Travel | | | | | [...]
--- OUTSIDE RECORDS SUMMARY | ~2019-11-17 | XMS | Encounter Summary ---
Demographics + + + | Address | [address] | | | [place] [address] | + + + | Home Phone | | + + + | Preferred Language | Unknown | + + + | Marital Status | Single | + + + | Baptism Affiliation | NRP | + + + | Race | White | + + + | Ethnic Group | Not or | + + + Author + + + | Author | [facility] | + + + | Organization | [facility] | + + + | Address | Unknown | + + + | Phone | Unavailable | + + + Support + + +---------+ + | Name | Relationship | Address | Phone | + + +---------+ + | Citlali Montes De Oca | ECON | Unknown | | + + +---------+ + Care Team Providers + +------+ + | Care Drum Sander Setter Name | Role | Phone | + +------+ + | Saumya Mohamud PA-C | PCP | | + +------+ + Encounter Details +--------+ + + + + | Date | Type | Department | Care Team | Description | +--------+ + + + + | 12/23/ | Lab | [facility] Family | Simon Mcdonough DO | | | 2017 | Requisition | Medicine Lab at | [address] | | | | | [place] [address] [address] | | | | | [address] | [place], [place] | | | | | [place], [place] | [address] | | | | | [address] | | | | | | | (Fax) | | +--------+ + + + + Social History + +-------+ +--------+------+ | Tobacco Use | Types | Packs/Day | Years | Date | | | | | Used | | + +-------+ +--------+------+ | Never Assessed | | | | | + +-------+ +--------+------+ + + + | Sex Assigned at [...] | + +--------+ + + + | HIV-1,2 AB/HIV-1 P24 | Routin | 12/23/2017 | Encounter for | Results for this | | AG SCRN | e | 12:04 PM | screening for HIV | procedure are in the | | | | PDT | | results section. | + +--------+ + + + documented in this encounter Results HIV-1,2 AB/HIV-1 P24 AG SCRN (12/23/2017 12:04 PM PDT) + + + + + + | Component | Value | Ref Range | Performed | Pathologist | | | | | At | Signature | + + + + + + | HIV-1,2 | Negative | Negative | [facility] | | | AB/HIV-1 | | | LABORATORY | | | P24 AG | | | SERVICES, | | | SCREEN | | | SPECIAL IMM | | | | | | + [place] | | + + + + + + + + | Specimen | + + | Blood - Blood | | (substance) | + + + + + | Narrative | Performed At | + + + | HIV-1 p24 Ag and HIV-1,2 Ab not detected. Test modified from | [facility] | | original curb builder's approved specifications. The performance | LABORATORY | | of the TELEPHONE OPERATOR RECEPTIONIST HIV Combo test, with or without confirmation, was not | SERVICES, | | tested in pediatric patients less than 2 years of age. NIH | SPECIAL IMM + | | guidelines recommend virologic assays (i.e. HIV 1 VIRAL LOAD) that | [place] | | directly detect HIV for diagnosis of HIV infection in infants younger | | | than 2 years. | | + + + + + + + + | Performing | Address | City/State/Zipcode | Phone Number | | Organization | | | | + + + + + | [facility] | [address] | [place] [address] | | | SERVICES, SPECIAL | [address] | | | | IMM + [place] | | | | + + + + + documented in this encounter Visit Diagnoses + + | Diagnosis | + + | Encounter for screening for HIV | + + documented in this encounter"
--- OUTSIDE RECORDS SUMMARY | ~2019-11-17 | XMS | Encounter Summary ---
Demographics + + + | Address | [address] | | | [place] [address] | + + + | Home Phone | | + + + | Preferred Language | Unknown | + + + | Marital Status | Single | + + + | Adventism Affiliation | NRP | + + + | Race | White | + + + | Ethnic Group | Not or | + + + Author + + + | Author | [facility] | + + + | Organization | [facility] | + + + | Address | Unknown | + + + | Phone | Unavailable | + + + Support + + +---------+ + | Name | Relationship | Address | Phone | + + +---------+ + | Citlali Montes De Oca | ECON | Unknown | | + + +---------+ + Care Team Providers + +------+ + | Care Music Education Adjunct Professor Name | Role | Phone | + +------+ + | Saumya Mohamud PA-C | PCP | | + +------+ + Encounter Details +--------+ + + + + | Date | Type | Department | Care Team | Description | +--------+ + + + + | 02/27/ | Hospital | Radiology/Imaging | Saumya Mohamud, | | | 2017 | Encounter | at [place] [address] | [place] [address] | | | | [address] | [address] | | | | | [address] [place], | [place], [place] | | | | | [place] [address] | [address] | | | | | [phone] | [phone] | | | | | | (Fax) [...]
--- OUTSIDE RECORDS SUMMARY | ~2019-11-17 | XMS | Encounter Summary ---
Demographics + + + | Address | [address] | | | [place] [address] | + + + | Home Phone | | + + + | Preferred Language | Unknown | + + + | Marital Status | Single | + + + | Jainism Affiliation | NRP | + + + | Race | White | + + + | Ethnic Group | Not or | + + + Author + + + | Author | [facility] | + + + | Organization | [facility] | + + + | Address | Unknown | + + + | Phone | Unavailable | + + + Support + + +---------+ + | Name | Relationship | Address | Phone | + + +---------+ + | Citlali Montes De Oca | ECON | Unknown | | + + +---------+ + Care Team Providers + +------+ + | Care Nanotechnology Engineering Technician Name | Role | Phone | + +------+ + | Saumya Mohamud PA-C | PCP | | + +------+ + Reason for Visit + + + | Reason | Comments | + + + | Care Coordination | CD copy images | + + + Encounter Details +--------+ + + + + | Date | Type | Department | Care Team | Description | +--------+ + + + + | 05/05/ | Telephone | [facility] | Xiao Lauren, | Care Coordination | | 2018 | | at [place] [address] | [place] [address] [address] | (CD copy images) | | | | [address] | [address] | | | | | [place] Sar[place], [place] | [place], [place] | | | | | [address] | [address] | | | | | [phone] | | | +--------+ + + + [...]
--- OUTSIDE RECORDS SUMMARY | ~2019-11-17 | XMS | Encounter Summary ---
Demographics + + + | Address | [address] | | | [place] [address] | + + + | Home Phone | | + + + | Preferred Language | Unknown | + + + | Marital Status | Single | + + + | Gnosticist Affiliation | NRP | + + + [...] Team Providers + +------+ + | Care Product Marketing Executive Name | Role | Phone | + +------+ + | Saumya Mohamud PA-C | PCP | | + +------+ + Encounter Details +--------+ + + + + | Date | Type | Department | Care Team | Description | +--------+ + + + + | 02/26/ | User Experience Manager | [facility] | Saumya Mohamud, | Screening for colon | | 2018 | | at [place] [address] | [place] [address] [address] | cancer (Primary Dx) | | | | [address] | [address] | | | | | [place], [place] | [place], [place] | | | | | [address] | [phone] | | | | | | | [...] + documented as of this encounter Progress Notes Cadence Diaz MA - 02/26/2018 1:24 PM Sofy Watkins is a 52 y.o. female who prese nted to clinic with a sample drop off. Sample processed and sent to core lab for resulting. documented in this encounter Plan of Treatment Not on filedocumented as of this encounter Procedures + +--------+ + + + | Procedure Name | Priori | Date/Time | Associated Diagnosis | Comments | | | ty | | | | + +--------+ + + + | OCCULT BLOOD, FECAL | Routin | 02/26/2018 | Screening for | Results for this | | BY IMMUNOASSAY | e | 1:26 PM | colon cancer | procedure are in the | | | | PDT | | results section. | + +--------+ + + + documented in this encounter Results OCCULT BLOOD, FECAL BY IMMUNOASSAY (02/26/2018 1:26 PM PDT) + + + + + + | Component | Value | Ref Range | Performed | Pathologist | | | | | At | Signature | + + + + + + | OCCULT | Negative | Negative | [facility] | | | BLOOD, | | | [facility] - | | | [facility] | | | [place] | | | IMMUNOASSAY | | | | | + + + + + + + + | Specimen | + + | Stool - Rectum | | structure (body | | structure) | + + + + + + + | Performing | Address | City/State/Zipcode | Phone Number | | Organization | | | | + + + + + | [facility] | [address] | [place] [address] | | | [place] | | | | + + + + + documented in this encounter Visit Diagnoses + + | Diagnosis | + + | Screening for colon cancer - Primary Special screening for malignant neoplasms, colon | + + documented in this encounter"
--- OUTSIDE RECORDS SUMMARY | ~2019-11-17 | XMS | Encounter Summary ---
Demographics + + + | Address | [address] | | | [place] [address] | + + + | Home Phone | | + + + | Preferred Language | Unknown | + + + | Marital Status | Single | + + + | Anglican Affiliation | NRP | + + + | Race | White | + + + | Ethnic Group | Not or | + + + Author + + + | Author | [facility] | + + + | Organization | [facility] | + + + | Address | Unknown | + + + | Phone | Unavailable | + + + Support + + +---------+ + | Name | Relationship | Address | Phone | + + +---------+ + | Citlali Montes De Oca | ECON | Unknown | | + + +---------+ + Care Team Providers + +------+ + | Care Forgeman Helper Name | Role | Phone | + +------+ + | Saumya Mohamud PA-C | PCP | | + +------+ + Reason for Visit + + + | Reason | Comments | + + + | Evaluation of test | foot xray | | results | | + + + Encounter Details +--------+ + + + + | Date | Type | Department | Care Team | Description | +--------+ + + + + | /03/ | Telephone | [facility] | Saumya Mohamud, | Evaluation of test | | 2018 | | at [place] [address] | [place] [id number] | results (foot xray) | | | | [address] | [address] | | | | | [place], [place] | [place], [place] | | | | | [address] | [address] | | | | | [phone] | [phone] | | | | | | | [...]
--- OUTSIDE RECORDS SUMMARY | ~2019-11-17 | XMS | Encounter Summary ---
Demographics + + + | Address | [address] | | | [place] [address] | + + + | Home Phone [...] Author + + + | Author | [facility] | + + + | Organization | [facility] | + + + | Address | Unknown | + + + | Phone | Unavailable | + + + Support + + +---------+ + | Name | Relationship | Address | Phone | + + +---------+ + | Citlali Montes De Oca | ECON | Unknown | | + + +---------+ + Care Team Providers + +------+ + | Care Sausage Maker Name | Role | Phone | + +------+ + | Saumya Mohamud PA-C | PCP | | + +------+ + Encounter Details +--------+ + + + + | Date | Type | Department | Care Team | Description | +--------+ + + + + | 05/07/ | Abstract | [facility] | Saumya Mohamud, | | | 2018 | | at [place] [address] | [place] [address] | | | | [address] [place] [address] | [place] [address] | | | | | [place], [place] | [place], [place] | | | | | [address] | [address] | | | | | | | [...] documented as of this encounter Progress Notes Marisel Palacios MA - 05/07/2018 2:36 PM PDTUpdated PAP from 07/01/2014, and 2016.El ectronically signed by Marisel Palacios MA at 05/07/2018 2:43 PM PDTdocumented in this encou nter Plan of Treatment Not on filedocumented as of this encounter Procedures + +--------+ + + + | Procedure Name | Priori | Date/Time | Associated Diagnosis | Comments | | | ty | | | | + +--------+ + + + | PAP W/HR HPV | Routin | 2016 | | Results for this | | (CO-TESTING) | e | | | procedure are in the | | | | | | results section. | + +--------+ + + + | PAP W/HR HPV | Routin | 07/01/2014 | | Results for this | | (CO-TESTING) | e | | | procedure are in the | | | | | | results section. | + +--------+ + + + documented in this encounter Results PAP W/HR HPV (CO-TESTING) (2016) + + + + + + | Component | Value | Ref Range | Performed | Pathologist | | | | | At | Signature | + + + + + + | SCALES INSPECTOR | negative | | [facility] | | | CYTOLOGY | | | [facility] - | | | | | | [place] | | + + + + + + | HPV | Negative for high-risk | Negative | [facility] | | | | HPV. | | [facility] - | | | | | | [place] | | + + + + + + + + | Specimen | + + | Tissue - Cervix | | uteri structure | | (body structure) | + + + + + | Narrative | Performed At | + + + | SCALES INSPECTOR CYTOLOGY [address] [facility] Component | [place] - | | Name Value Ref Range Report, pathology | [facility] - | | Case #: [id number] | [place] | | Collected: 2016 HPV Result: NOT DETECTED (Please see HPV | | | Report for complete interpretation) HPV Test Specified: CoTest | | | FINAL PATHOLOGIC DIAGNOSIS: | | | A: Cervical LBP - SurePath - Cervical - Negative for | | | intraepithelial lesion or malignancy - Satisfactory for evaluation | | | - Endocervical/transformation zone component present | | | Electronically | | | Signed by TAMARA STEELE on 04/02/2016 | | | Cytotech Code(s): [id number] Cytotech Code(s): H811757 Treatment | | | History: BCP: Depo-Provera Specimen(s) Received A:Cervical LBP - | | | SurePath - Cervical Patient Name: KATHY LEUNG [facility]. Rec | | | #: [id number] /Age: 8 1965 (Age: 51) Sex: F | | | Facility: [facility] Medical Office Location: | | | Provider: REDDY [place]UL NP [facility] [address] | [address], [place] [address] Tel: [phone] | | [phone] Collected: | | | 2016 Case #: [id number] | | | Gynecologic Cytology | | | Report Educational note for ordering and | | | interpreting Pap tests: - Pap testing should begin at age 21 - Age | | | 21-24: recommend Pap every 3 years - Age 25-29: recommend Pap every 3 | | | years (with HPV triage if ASCUS) - Age 30-65: recommend Pap + HPV | | | cotest every 3-5 years - Most women with a hysterectomy which has | | | removed the cervix do not need Pap tests. - This is the result | | | of a screening test with an inherent, but low, probability of | | | error. - Your patient should be instructed to consult you immediately | | | if she experiences any suspicious signs or symptoms, regardless | | | of her Pap test result. FOLLOW-UP recommendations: Repeat | | | in 3-5 years: - Pap normal / HPV negative (age 30 and older) | | | Repeat in 3 years: - Pap normal (age 21-29) - ASC-US/HPV negative | | | Repeat in 1 year: - Age 21-24: ASC-US or LSIL - 1st or 2nd test | | | result (3rd abnormality needs colposcopy) - Age 30 and older: | | | LSIL/HPV negative - 1st test result (2nd abnormality needs | | | colposcopy) - Age 30 and older: Pap normal/HPV positive - 1st test | | | result (2nd abnormality needs colposcopy) Colposcopy: - Age | | | 25 - 29, LSIL (no HPV triage in this age group advised) NOTE: | | | colposcopy is indicated for this result in a non-screening | | | situation (ie, the first or second Pap post LEEP or colposcopy). | | | Other situations may need colposcopy - please see Guidelines. | | | Professional services provided by [facility] | | | Department of Pathology at these locations: [facility]: [address] | | | Laboratory, [address] [place] [facility] [place] [address] | | | CLIA [id number]; Lan Perdomo, PhD - Director SMC: | | | [facility], [address] [facility], | | | [place] [address] CLIA [id number]; Yesica Archuleta MD - Director INT: | | | [facility], [address] [facility] [facility], | | | [place] [address] CLIA [id number]; Lalitha Silvestre, - Director | | | [facility]: [facility], [address] [facility], | | | [place] [address] CLIA [id number]; Susie Arnold MD - | | | Director [facility] | | | Satisfactory for evaluation SPECIMEN ADEQUACY | | | Endocervical/transformation zone component present PRIMARY | | | INTERPRETATION Negative for intraepithelial lesion or malignancy | | | | | + + + + + + + + | Performing | Address | City/State/Zipcode | Phone Number | | Organization | | | | + + + + + | [facility] | [address] | [place] [address] | | | [place] | | | | + + + + + PAP W/HR HPV (CO-TESTING) (07/01/2014) + + + + + + | Component | Value | Ref Range | Performed | Pathologist | | | | | At | Signature | + + + + + + | SCALES INSPECTOR | negative | | [facility] | | | CYTOLOGY | | | [facility] - | | | | | | [place] | | + + + + + + | HPV | POSITIVE for high-risk | Negative | [facility] | | | | HPV. (A) | | [facility] - | | | | | | [place] | | + + + + + + + + | Specimen | + + | Tissue - Cervix | | uteri structure | | (body structure) | + + + + + | Narrative | Performed At | + + + | SCALES INSPECTOR CYTOLOGY 07/01/2014 [facility] Component | [facility] | | Name Value Ref Range Report, pathology | [facility] - | | Case #: [id number] | [place] | | Collected: 07/01/2014 HPV Result: DETECTED (Please see HPV | | | Report for complete interpretation) HPV Test Specified: CoTest | | | FINAL PATHOLOGIC DIAGNOSIS: | | | A: Cervical LBP - - Negative for intraepithelial lesion or | | | malignancy - HPV Cotest is positive for high-risk HPV - Reactive | | | cellular changes associated with inflammation - Satisfactory for | | | evaluation - Endocervical/transformation zone | | | component present | | | | | | Professional Signout Location: | | | [facility] Cytotech Code(s): C105 Treatment History: Depo | | | Provera Specimen(s) Received A: Cervical LBP Patient | | | Name: KATHY LEUNG [facility]. Rec | | | #: [id number] /Age: 8 1965 (Age: 49) Sex: F | | | Facility: [facility] Medical Office Location: [facility] | | | Provider: Ambreen Sánchez MD [facility] [address] [place] [address] [address] | | [address], [place] [address] Tel: [phone] | | [phone] Collected: | | | 07/01/2014 Case #: [id number] | | | Gynecologic Cytology | | | Report Educational note for ordering and interpreting Pap tests: - | | | Pap testing should begin at age 21 - Age 21-24: recommend Pap every 3 | | | years - Age 25-29: recommend Pap every 3 years (with HPV triage if | | | ASCUS) - Age 30-65: recommend Pap + HPV cotest every 3-5 years - | | | Most women with a hysterectomy which has removed the cervix do not | | | need Pap tests. - This is the result of a screening test with an | | | inherent, but low, probability of error. - Your patient should be | | | instructed to consult you immediately if she experiences any | | | suspicious signs or symptoms, regardless of her Pap test result. | | | FOLLOW-UP recommendations: Repeat in 3-5 years: - Pap normal / | | | HPV negative (age 30 and older) Repeat in 3 years: - Pap normal | | | (age 21-29) - ASC-US/HPV negative Repeat in 1 year: - Age 21-24: | | | ASC-US or LSIL - 1st or 2nd test result (3rd abnormality needs | | | colposcopy) - Age 25 and older: LSIL/HPV negative - 1st test | | | result (2nd abnormality needs colposcopy) - Age 30 and older: | | | Pap normal/HPV positive - 1st test result (2nd abnormality needs | | | colposcopy) Other situations may need colposcopy - please see | | | Guidelines. Professional services provided by | | | [facility] Department of Pathology at these locations: | | | [facility]: [facility], [address], | | | [place] [address] CLIA [id number]; Sharan Gardner, PhD [facility]: | | | [facility], [address], | | | [place] [address] CLIA [id number]; Yesica Archuleta MD INT: [facility] | | | Medical Office, [address] [facility] [address] | | | CLIA [id number]; Yumiko Byrd MD [facility]: [facility] | | | Center, [address] [facility] [place] [address] | | | CLIA [id number]; Yesica Herrera MD Director (A) SPECIMEN | | | ADEQUACY Satisfactory for evaluation SPECIMEN ADEQUACY | | | Endocervical/transformation zone component present PRIMARY | | | INTERPRETATION Negative for intraepithelial lesion or malignancy | | | Average risk for maternal age Reactive cellular changes associated | | | with inflammation | | + + + + + + + + | Performing | Address | City/State/Zipcode | Phone Number | | Organization | | | | + + + + + | [facility] | [address] | [place] [address] | | | [facility] | | | | + + + + + documented in this encounter Visit Diagnoses Not on filedocumented in this encounter"
--- OUTSIDE RECORDS SUMMARY | ~2019-11-17 | XMS | Encounter Summary ---
Demographics + + + | Address | [address] | | | [place] [address] | + + + | Home Phone | | + + + | Preferred Language | Unknown | + + + | Marital Status | Single | + + + | Religion Affiliation | NRP | + + + [...] Team Providers + +------+ + | Care Marine Superintendent Name | Role | Phone | [...]
--- OUTSIDE RECORDS SUMMARY | ~2019-11-17 | XMS | Encounter Summary ---
Demographics + + + | Address | [address] | | | [place] [address] | + + + | Home Phone | | + + + | Preferred Language | Unknown | + + + | Marital Status | Single | + + + | Nondenominational Affiliation | NRP | + + + | Race | White | + + + | Ethnic Group | Not or | + + + Author + + + | Author | [facility] | + + + | Organization | [facility] | + + + | Address | Unknown | + + + | Phone | Unavailable | + + + Support + + +---------+ + | Name | Relationship | Address | Phone | + + +---------+ + | Citlali Montes De Oca | ECON | Unknown | | + + +---------+ + Care Team Providers + +------+ + | Care Endorsement Clerk Name | Role | Phone | + +------+ + | Saumya Mohamud PA-C | PCP | | + +------+ + Reason for Visit + + + | Reason | Comments | + + + | Flank pain | | + + + Encounter Details +--------+ + + + + | Date | Type | Department | Care Team | Description | +--------+ + + + + | 12/21/ | Emergency | [facility] | Lisa Bowman MD | | | 2019 | | Department [address] | [address] [facility] | | | | | [address] | [address] | | | | | [facility] | [place], [place] | | | | | [place], [place] | [address] | | | | | [address] | [phone] | | | | | [phone] | | | +--------+ + + + [...] + + + | Blood Pressure | 128/80 | 12/21/2018 7:45 PM | | | | | PDT | | + + + + + | Pulse | 94 | 12/21/2018 7:27 PM | | | | | PDT | | + + + + + | Temperature | 36.8 C (98.2 F) | 12/21/2018 7:27 PM | | | | | PDT | | + + + + + | Respiratory Rate | 16 | 12/21/2018 7:45 PM | | | | | PDT | | + + + + + | Oxygen Saturation | 99% | 12/21/2018 7:45 PM | | | | | PDT | | + + + + + | Inhaled Oxygen | - | - | | | Concentration | | | | + + + + + | Weight | 61.6 kg (135 lb 11.2 | 12/21/2018 7:25 PM | | | | oz) | PDT | | + + + + + | Height | - | - | | + + + + + | Body Mass Index | - | - | | + + + + + documented in this encounter Discharge Instructions Instructions Brennan Flores MD - 12/21/2018Nicole - thank you for coming to the ED today, it was a pleasure taking care of you! At this point we believe your symptoms are likely due to a kidney infection. You had a culture that grew a bacteria that should be treated by an antibiotic called Augmentin. Please call your PCP and arrange follow up medical care. Also, please return to the ED for any symptoms concerning to you. This includes fevers or c hills, severe worsening of pain, altered mental status, confusion, unrelenting nausea or vom iting, abdominal pain, episodes of passing out - or for any other concerning symptoms. AttachmentsThe following attachments cannot be sent through Care Everywhere.Pyelonephritis (Welsh)documented in this encounter Medications at Time of Discharge [...] | + +--------+ + + + | CBC AND AUTO DIFF | Urgent | 12/21/2018 | | Results for this | | | | 8:44 PM | | procedure are in the | | | | PDT | | results section. | + +--------+ + + + | CBC, WITH | Urgent | 12/21/2018 | | Results for this | | DIFFERENTIAL | | 8:44 PM | | procedure are in the | | | | PDT | | results section. | + +--------+ + + + | COMPLETE METABOLIC | Urgent | 12/21/2018 | | Results for this | | SET | | 8:44 PM | | procedure are in the | | (NA,K,CL,CO2,BUN,CRE | | PDT | | results section. | | AT,GLUC,CA,AST,ALT,B | | | | | | SAVANNA TOTAL,ALK | | | | | | PHOS,ALB,PROT TOTAL) | | | | | + +--------+ + + + | UA, DIPSTICK ONLY | Urgent | 12/21/2018 | | Results for this | | | | 7:31 PM | | procedure are in the | | | | PDT | | results section. | + +--------+ + + + | URINE, MICROSCOPIC | Urgent | 12/21/2018 | | Results for this | | EXAM | | 7:31 PM | | procedure are in the | | | | PDT | | results section. | + +--------+ + + + documented in this encounter Results CBC AND AUTO DIFF (12/21/2018 8:44 PM PDT) + + + + + + | Component | Value | Ref Range | Performed | Pathologist | | | | | At | Signature | + + + + + + | WHITE CELL | 6.41 | 3.50 - 10.80 | [facility] | | | COUNT | | K/cu mm | LABORATORY | | | | | | SERVICES, | | | | | | CORE | | + + + + + + | RED CELL | 3.98 (L) | 4.00 - 5.20 | [facility] | | | COUNT | | M/cu mm | LABORATORY | | | | | | SERVICES, | | | | | | CORE | | + + + + + + | HEMOGLOBIN | 11.8 (L) | 12.0 - 16.0 | [facility] | | | | | g/dL | LABORATORY | | | | | | SERVICES, | | | | | | CORE | | + + + + + + | HEMATOCRIT | 35.8 (L) | 36.0 - 46.0 % | [facility] | | | | | | LABORATORY | | | | | | SERVICES, | | | | | | CORE | | + + + + + + | MCV | 89.9 | 80.0 - 100.0 fL | [facility] | | | | | | LABORATORY | | | | | | SERVICES, | | | | | | CORE | | + + + + + + | MCHC | 33.0 | 32.0 - 36.0 | [facility] | | | | | g/dL | LABORATORY | | | | | | SERVICES, | | | | | | CORE | | + + + + + + | RDW SD | 41.9 | 35.1 - 46.3 fL | [facility] | | | | | | LABORATORY | | | | | | SERVICES, | | | | | | CORE | | + + + + + + | PLATELET | 164 | 150 - 400 K/cu | [facility] | | | COUNT | | mm | LABORATORY | | | | | | SERVICES, | | | | | | CORE | | + + + + + + | MPV | 10.7 | 9.7 - 12.3 fL | [facility] | | | | | | LABORATORY | | | | | | SERVICES, | | | | | | CORE | | + + + + + + | NRBC% | 0.0 | 0.0 - 0.3 % | [facility] | | | | | | LABORATORY | | | | | | SERVICES, | | | | | | CORE | | + + + + + + | NRBC# | 0.00 | 0.00 - 0.02 | [facility] | | | | | K/cu mm | LABORATORY | | | | | | SERVICES, | | | | | | CORE | | + + + + + + | NEUTROPHIL | 67.4 | 50.0 - 70.0 % | [facility] | | | % | | | LABORATORY | | | | | | SERVICES, | | | | | | CORE | | + + + + + + | LYMPHOCYTE | 21.8 | 18.0 - 42.0 % | [facility] | | | % | | | LABORATORY | | | | | | SERVICES, | | | | | | CORE | | + + + + + + | MONOCYTE % | 7.6 | 3.5 - 9.0 % | [facility] | | | | | | LABORATORY | | | | | | SERVICES, | | | | | | CORE | | + + + + + + | EOS % | 2.7 | 1.0 - 3.0 % | [facility] | | | | | | LABORATORY | | | | | | SERVICES, | | | | | | CORE | | + + + + + + | BASO % | 0.3 | 0.0 - 2.0 % | [facility] | | | | | | LABORATORY | | | | | | SERVICES, | | | | | | CORE | | + + + + + + | IG% | 0.2Comment: Increased | 0.0 - 1.0 % | [facility] | | | | immature granulocytes | | LABORATORY | | | | (IG) define a left | | SERVICES, | | | | shift. Immature | | CORE | | | | granulocytes (IG) are an | | | | | | automated count of | | | | | | metamyelocytes, | | | | | | myelocytes and | | | | | | promyelocytes. Bands | | | | | | are not included in the | | | | | | IG count. Bands are | | | | | | included in the | | | | | | neutrophil count. | | | | + + + + + + | NEUTROPHIL | 4.32 | 1.80 - 7.70 | [facility] | | | # | | K/cu mm | LABORATORY | | | | | | SERVICES, | | | | | | CORE | | + + + + + + | LYMPHOCYTE | 1.40 | 1.00 - 4.80 | [facility] | | | # | | K/cu mm | LABORATORY | | | | | | SERVICES, | | | | | | CORE | | + + + + + + | MONOCYTE # | 0.49 | 0.10 - 0.90 | [facility] | | | | | K/cu mm | LABORATORY | | | | | | SERVICES, | | | | | | CORE | | + + + + + + | EOS # | 0.17 | 0.00 - 0.50 | [facility] | | | | | K/cu mm | LABORATORY | | | | | | SERVICES, | | | | | | CORE | | + + + + + + | BASO # | 0.02 | 0.00 - 0.10 | [facility] | | | | | K/cu mm | LABORATORY | | | | | | SERVICES, | | | | | | CORE | | + + + + + + | IG# | 0.01 | 0.00 - 0.10 | [facility] | | | | | K/cu mm | LABORATORY | | | | | | SERVICES, | | | | | | CORE | | + + + + + + + + | Specimen | + + | Blood - Blood | | (substance) | + + + + + | Narrative | Performed At | + + + | Increased immature granulocytes (IG) define a left shift. Immature | [facility] | | granulocytes (IG) are an automated count of metamyelocytes, myelocytes | LABORATORY | | and promyelocytes. Bands are not included in the IG count. Bands are | SERVICES, CORE | | included in the neutrophil count. | | + + + + + + + + | Performing | Address | City/State/Zipcode | Phone Number | | Organization | | | | + + + + + | [facility] | [address] | [place] [address] | | | SERVICES, [facility] | [address] | | | + + + + + COMPLETE METABOLIC SET (NA,K,CL,CO2,BUN,CREAT,GLUC,CA,AST,ALT,BILI TOTAL,ALK PHOS,ALB,PROT TOTAL) (12/21/2018 8:44 PM PDT) + +---------+ + + + | Component | Value | Ref Range | Performed | Pathologist | | | | | At | Signature | + +---------+ + + + | GLUCOSE, | 90 | 70 - 99 mg/dL | [facility] | | | PLASMA | | | LABORATORY | | | (LAB) | | | SERVICES, | | | | | | CORE | | + +---------+ + + + | BUN, PLASMA | 24 (H) | 6 - 20 mg/dL | [facility] | | | (LAB) | | | LABORATORY | | | | | | SERVICES, | | | | | | CORE | | + +---------+ + + + | CREATININE | 0.87 | 0.60 - 1.10 | [facility] | | | PLASMA | | mg/dL | LABORATORY | | | (LAB) | | | SERVICES, | | | | | | CORE | | + +---------+ + + + | EGFR | >60 | >60 mL/min | [facility] | | | - | | | LABORATORY | | | [place] | | | SERVICES, | | | | | | CORE | | + +---------+ + + + | EGFR NON | >60 | >60 mL/min | [facility] | | | -HARDY | | | LABORATORY | | | RICAN | | | SERVICES, | | | | | | CORE | | + +---------+ + + + | SODIUM, | 142 | 136 - 145 | [facility] | | | PLASMA | | mmol/L | LABORATORY | | | (LAB) | | | SERVICES, | | | | | | CORE | | + +---------+ + + + | POTASSIUM, | 3.9 | 3.4 - 5.0 | [facility] | | | PLASMA | | mmol/L | LABORATORY | | | (LAB) | | | SERVICES, | | | | | | CORE | | + +---------+ + + + | CHLORIDE, | 107 | 97 - 108 mmol/L | [facility] | | | PLASMA | | | LABORATORY | | | (LAB) | | | SERVICES, | | | | | | CORE | | + +---------+ + + + | TOTAL CO2, | 28 | 21 - 32 mmol/L | [facility] | | | PLASMA | | | LABORATORY | | | (LAB) | | | SERVICES, | | | | | | CORE | | + +---------+ + + + | CALCIUM, | 9.1 | 8.6 - 10.2 | [facility] | | | PLASMA | | mg/dL | LABORATORY | | | (LAB) | | | SERVICES, | | | | | | CORE | | + +---------+ + + + | CALCIUM(ALB | 9.4 | 8.6 - 10.2 | [facility] | | | CORRECTED) | | mg/dL | LABORATORY | | | | | | SERVICES, | | | | | | CORE | | + +---------+ + + + | BILIRUBIN | 0.3 | 0.3 - 1.2 mg/dL | [facility] | | | TOTAL | | | LABORATORY | | | | | | SERVICES, | | | | | | CORE | | + +---------+ + + + | TOTAL | 7.0 | 6.4 - 8.2 g/dL | [facility] | | | PROTEIN, | | | LABORATORY | | | PLASMA | | | SERVICES, | | | (LAB) | | | CORE | | + +---------+ + + + | ALBUMIN, | 3.6 | 3.5 - 4.7 g/dL | [facility] | | | PLASMA | | | LABORATORY | | | (LAB) | | | SERVICES, | | | | | | CORE | | + +---------+ + + + | ALK PHOS | 90 | 42 - 98 U/L | [facility] | | | | | | LABORATORY | | | | | | SERVICES, | | | | | | CORE | | + +---------+ + + + | AST(SGOT) | 20 | <=41 U/L | [facility] | | | | | | LABORATORY | | | | | | SERVICES, | | | | | | CORE | | + +---------+ + + + | ALT (SGPT) | 28 | <=60 U/L | [facility] | | | | | | LABORATORY | | | | | | SERVICES, | | | | | | CORE | | + +---------+ + + + | ANION GAP | 7 | 4 - 11 mmol/L | [facility] | | | | | | LABORATORY | | | | | | SERVICES, | | | | | | CORE | | + +---------+ + + + | ANION | 8 | 4 - 11 mmol/L | [facility] | | | GAP(ALB | | | LABORATORY | | | CORRECTED) | | | SERVICES, | | | | | | CORE | | + +---------+ + + + | POTASSIUM | No Hemo | | [facility] | | | CMNT | | | LABORATORY | | | | | | SERVICES, | | | | | | CORE | | + +---------+ + + + | BILI T CMNT | No Hemo | | [facility] | | | | | | LABORATORY | | | | | | SERVICES, | | | | | | CORE | | + +---------+ + + + | AST CMNT | No Hemo | | [facility] | | | | | | LABORATORY | | | | | | SERVICES, | | | | | | CORE | | + +---------+ + + + + + | Specimen | + + | Blood - Blood | | (substance) | + + + + + | Narrative | Performed At | + + + | GFR is estimated using the MDRD equation recommended by the National | [facility] | | Kidney Disease Education Program. Estimated GFR Interpretive | LABORATORY | | Information: <60 mL/min/1.73 sq m Chronic Kidney | SERVICES, CORE | | Disease <15 mL/min/1.73 sq m Kidney Failure | | | Estimated GFR greater than 60 mL/min/1.73 sq m is of limited clinical | | | value. The MDRD equation is not valid in the following situations: - | | | Patients under 18 years of age - Severe malnutrition or obesity - | | | Vegetarian diet - Rapidly changing kidney function - Amputees, | | | paraplegics, or other muscle-wasting diseses | | + + + + + + + + | Performing | Address | City/State/Zipcode | Phone Number | | Organization | | | | + + + + + | [facility] | [address] | [place] [address] | | | SERVICES, CORE | [address] | | | + + + + + URINE, MICROSCOPIC EXAM (12/21/2018 7:31 PM PDT) + + + + + + | Component | Value | Ref Range | Performed | Pathologist | | | | | At | Signature | + + + + + + | RED CELLS | 10 (H) | 0 - 3 /hpf | [facility] | | | | | | LABORATORY | | | | | | SERVICES, | | | | | | CORE | | + + + + + + | WHITE CELLS | 64 (H) | 0 - 5 /hpf | [facility] | | | | | | LABORATORY | | | | | | SERVICES, | | | | | | CORE | | + + + + + + | BACTERIA | Moderate (A) | None /hpf | [facility] | | | | | | LABORATORY | | | | | | SERVICES, | | | | | | CORE | | + + + + + + | YEAST (LAB) | None | None /hpf | [facility] | | | | | | LABORATORY | | | | | | SERVICES, | | | | | | CORE | | + + + + + + | SQUAMOUS | Moderate (A) | None, Few /hpf | [facility] | | | EPITHELIAL | | | LABORATORY | | | | | | SERVICES, | | | | | | CORE | | + + + + + + | MUCOUS | Few | None, Few /hpf | [facility] | | | | | | LABORATORY | | | | | | SERVICES, | | | | | | CORE | | + + + + + + | NON-SQUAMOU | Few (A) | None /hpf | [facility] | | | S EPITH | | | LABORATORY | | | | | | SERVICES, | | | | | | CORE | | + + + + + + | HYALINE | 0 | 0 - 2 /lpf | [facility] | | | CASTS | | | LABORATORY | | | | | | SERVICES, | | | | | | CORE | | + + + + + + | GRANULAR | 0 | 0 - 2 /lpf | [facility] | | | CASTS | | | LABORATORY | | | | | | SERVICES, | | | | | | CORE | | + + + + + + | CELLULAR | 0 | <=0 /lpf | [facility] | | | CASTS | | | LABORATORY | | | | | | SERVICES, | | | | | | CORE | | + + + + + + | TRIPLE P04 | None | None, Few /hpf | [facility] | | | CRYSTALS | | | LABORATORY | | | | | | SERVICES, | | | | | | CORE | | + + + + + + | CALCIUM | None | None, Few /hpf | [facility] | | | OXALATE | | | LABORATORY | | | DALE | | | SERVICES, | | | | | | CORE | | + + + + + + | URIC ACID | None | None, Few /hpf | [facility] | | | CRYSTALS | | | LABORATORY | | | | | | SERVICES, | | | | | | CORE | | + + + + + + | AMORPHOUS | None | None, Few /hpf | [facility] | | | CRYSTALS | | | LABORATORY | | | | | | SERVICES, | | | | | | CORE | | + + + + + + + + | Specimen | + + | Urine | + + + + + + + | Performing | Address | City/State/Zipcode | Phone Number | | Organization | | | | + + + + + | [facility] | [address] | [place] [address] | | | SERVICES, [place] | [address] | | | + + + + + BRYANNA WALSH (12/21/2018 7:31 PM PDT) + + + + + + | Component | Value | Ref Range | Performed | Pathologist | | | | | At | Signature | + + + + + + | COLOR(UR) | Yellow | | [facility] | | | | | | LABORATORY | | | | | | SERVICES, | | | | | | CORE | | + + + + + + | APPEARANCE | Clear | | [facility] | | | | | | LABORATORY | | | | | | SERVICES, | | | | | | CORE | | + + + + + + | GLUCOSE(UR) | Negative | Negative, 50.0 | [facility] | | | | | mg/dL | LABORATORY | | | | | | SERVICES, | | | | | | CORE | | + + + + + + | PROTEIN(LAB | Negative | Negative, 30.0 | [facility] | | | ) | | mg/dL | LABORATORY | | | | | | SERVICES, | | | | | | CORE | | + + + + + + | BILIRUBIN | Negative | Negative | [facility] | | | | | | LABORATORY | | | | | | SERVICES, | | | | | | CORE | | + + + + + + | UROBILINOGE | <2.0 | <2.0 mg/dL | [facility] | | | N | | | LABORATORY | | | | | | SERVICES, | | | | | | CORE | | + + + + + + | PH(UR) | 7.0 | 5.0 - 8.0 | [facility] | | | | | | LABORATORY | | | | | | SERVICES, | | | | | | CORE | | + + + + + + | BLOOD | Negative | Negative | [facility] | | | | | | LABORATORY | | | | | | SERVICES, | | | | | | CORE | | + + + + + + | KETONES | Negative | Negative mg/dL | [facility] | | | | | | LABORATORY | | | | | | SERVICES, | | | | | | CORE | | + + + + + + | NITRITES | Negative | Negative | [facility] | | | | | | LABORATORY | | | | | | SERVICES, | | | | | | CORE | | + + + + + + | LEUKOCYTE | Small (A) | Negative | [facility] | | | ESTERASE | | | LABORATORY | | | | | | SERVICES, | | | | | | CORE | | + + + + + + | SPECIFIC | 1.019Comment: Specific | 1.005 - 1.030 | [facility] | | | GRAVITY | [place] performed by | | LABORATORY | | | | refractometry | | SERVICES, | | | | | | CORE | | + + + + + + + + | Specimen | + + | Urine | + + + + + + + | Performing | Address | City/State/Zipcode | Phone Number | | Organization | | | | + + + + + | [facility] | [address] | [place] [address] | | | SERVICES, [place] | [address] | | | + + + + + documented in this encounter Visit Diagnoses + + | Diagnosis | + + | Pyelonephritis, acute - Primary Acute pyelonephritis without lesion of renal | | medullary necrosis | + + documented in this encounter Administered Medications + +--------+ +--------+------+------+ | Medication Order | MAR | Action | Dose | Rate | Site | | | Action | Date | | | | + +--------+ +--------+------+------+ | acetaminophen (TYLENOL) tablet | Given | 12/22/19 | 650 mg | | | | 650 mg 650 mg, oral, ONCE, 1 | | 19 8:55 | | | | | dose, 12/21/18 at 2130 | | PM PDT | | | | + +--------+ +--------+------+------+ +---+---+ | | | +---+---+ documented in this encounter"
--- OUTSIDE RECORDS SUMMARY | ~2019-11-17 | XMS | Encounter Summary ---
Demographics + + + | Address | [address] | | | [place] [address] | + + + | Home Phone | | + + + | Preferred Language | Unknown | + + + | Marital Status | Single | + + + | Confucianism Affiliation | NRP | + + + | Race | White | + + + | Ethnic Group | Not or | + + + Author + + + | Author | [facility] | + + + | Organization | [facility] | + + + | Address | Unknown | + + + | Phone | Unavailable | + + + Support + + +---------+ + | Name | Relationship | Address | Phone | + + +---------+ + | Citlali Montes De Oca | ECON | Unknown | | + + +---------+ + Care Team Providers + +------+ + | Care Allergy And Immunology Specialist Name | Role | Phone | + +------+ + | Saumya Mohamud PA-C | PCP | | + +------+ + Reason for Visit + + + | Reason | Comments | + + + | Hand Pain | bilateral | + + + | Arm Pain | bilateral | + + + | Shoulder pain | bilateral | + + + Encounter Details +--------+---------+ + + + | Date | Type | Department | Care Team | Description | +--------+---------+ + + + | 12/02/ | Office | [facility] Primary Care | Saumya Mohamud Tray, | Chronic pain of both | | 2018 | Visit | at [place] [address] | [place] [address] | shoulders (Primary | | | | [address] | [address] | Dx); Chronic hand | | | | [address] [place], [place] | [place], [place] | pain, unspecified | | | | [address] | [phone] | laterality; | | | | [phone] | [phone] | Recurrent cold sores | | | | | | | +--------+---------+ + + + [...] + + + | Blood Pressure | 142/90 | 12/02/2018 6:30 PM | | | | | PDT | | + + + + + | Pulse | 80 | 12/02/2018 6:30 PM | | | | | PDT | | + + + + + | Temperature | - | [...] + + + + | Weight | 59.9 kg (132 lb) | 12/02/2018 6:30 PM | | | | | PDT | | + + + + + | Height | - | - | | + + + + + | Body Mass Index | - | - | | + + + + + documented in this encounter Progress Notes Saumya Mohamud PA-C - 12/02/2018 6:40 PM PDT SUBJECTIVE: Chief complaint: Hand Pain (bilateral); Arm Pain (bilateral); and Shoulder pain (bilateral ) Misty Watkins is a 53 y.o. 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 No PMH gout, RA, carpal tunnel Patient Active Problem List Diagnosis Date Noted Hallux valgus, left 06/17/2018 Overview Note: Following with [facility] [phone]; recommend surgery Recurrent cold sores 02/20/2018 Current Outpatient Prescriptions: acyclovir 400 mg oral tablet, Take 1 tablet by mouth five times daily. For 5 days at the first sign of an outbreak, Disp: 30 tablet, Rfl: 1 meloxicam 7.5 mg oral tablet, Take 1 tablet by mouth once daily. Do not take ibuprofen or n aproxen on same day as this medication. OK to take Tylenol on same day as this medication., Disp: 30 tablet, Rfl: 0 OBJECTIVE: Vitals: 12/02/18 1830 BP: 142/90 Pulse: 80 Weight: 59.9 kg (132 lb) PainSc: 08 - Very Severe GA: Alert, no apparent distress. Speaks easily and freely, moves easily around exam room. Eye: conjunctivae pink, sclerae anicteric, noninjected. Lids without edema or erythema or m asses. ENT: Nose symmetric no deviation.Hearing intact to normal conversation level. Neck: Neck supple, no posterior cervical TTP. Resp: No retractions, full inspiratory effort. Clear to auscultation bilat, no adventitious breath sounds. Good air movement throughout. CV: No thrills or lifts. Regular rate and rhythm, no murmurs, rubs, gallops. MSK: Gait symmetric, appropriate. Shoulder Exam BILAT INSPECTION: good muscle bulk and tone, no erythema or overlying lesions PALPATION: +TTP bilat biceps tendons, deltoids; no TTP along scapula or clavicle, no AC TTP , pectorals, no mass, warmth, swelling STRENGTH: strength intact 5/5 in flexors and extensors, internal and medial rotators, subsc apularis, biceps, triceps, deltoid RANGE OF MOTION: full range of movement, with pain above horizontal DROP SIGN (large rotator cuff): negative RESISTED ABDUCTION (empty can supraspinatus test): negative RESISTED External rotation (infraspinatus and teres minor): negative Hand bilateral INSPECTION: +enlargement generally of DIPs bilat; no erythema or overlying lesion; no ecchy mosis PALPATION: +TTP bilat fingers at PIPs and distally; no TTP thenar eminences, wrist joints, forearms, epicondyles, hands. No mass or cyst. No anatomical snuffbox tenderness. 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 Sensation intact to light touch bilat UE, fingers. Psych: Good eye contact, affect & mood congruent, judgement & insight grossly intact, no th ought disorder. Oriented to person, place and time. Memory recall appropriate. IMPRESSION: Osteoarthritis. Electronically signed by Piotr Hendrix MD. 05/01/2015 3:04 PM Result Narrative EXAM:XR BILAT HANDS 1 VIEW EXAM DATE AND TIME:04/28/2015 12:05 PM HISTORY: CLINICAL CONCERN: hand pain (differential diagnosis or r/o) COMPARISON:None. FINDINGS:Typical changes of osteoarthritis noted at the base of the left first metacarpal and between the right scaphoid and greater multangular. Very little DIP joint space disease are evident. ASSESSMENT/PLAN: Misty was seen today for hand pain, arm pain and shoulder pain. Diagnoses and all orders for this visit: Chronic pain of both shoulders Chronic hand pain, unspecified laterality - X-RAY SHOULDER 2 VIEW BILATERAL; Future - X-RAY HAND 1 VIEWS BILATERAL; Future - meloxicam 7.5 mg oral tablet; Take 1 tablet by mouth once daily. Do not take ibuprofe n or naproxen on same day as this medication. OK to take Tylenol on same day as this medicat ion. Recurrent cold sores - acyclovir 400 mg oral tablet; Take 1 tablet by mouth five times daily. For 5 days at the first sign of an outbreak Lower concern fracture, RA, gout, infectious Likely chronic overuse & OA Followup as needed on imaging PARQ for new medication Heat, ice Depending on xray results can meet with Dr. Reeves for consideration of injection Can consider PT in future Reviewed s/s to come back in. If new/worse/persistent symptoms, come back in. Return if symptoms worsen or fail to improve, for MSK pains. Patient declined AVS today. Saumya Esquivel MA - 12/02/2018 6:40 PM PDTPt here for bilateral shoulder, arm and hand pain. Would like a refill of acyclovir. documented in this encounter Plan of Treatment Not on filedocumented as of this encounter Results X-RAY SHOULDER 2 VIEW BILATERAL (12/02/2018 7:28 PM PDT) + + | Specimen | + + | | + + + + + | Narrative | Performed At | + + + | EXAM: SHOULDER 2 VIEWS BILATERAL HISTORY: chronic worsening | [facility] | | bilat shoulder pain x years; OA in other joints COMPARISON: None. | RADIOLOGY VOICE | | FINDINGS: No evidence of acute fracture or malalignment. | RECOGNITION 2 | | Left shoulder: There is severe glenohumeral and mild acromioclavicular | | | osteoarthrosis. There is marked cortical irregularity at the greater | | | tuberosity. Right shoulder: There is severe glenohumeral and mild | | | acromioclavicular osteoarthrosis. There are multiple intra-articular | | | ossified bodies including within the long head of the biceps tendon | | | sheath. There is cortical irregularity at the greater tuberosity. | | | Incompletely characterized degenerative disc disease at the | | | cervicothoracic spine. IMPRESSION: Severe bilateral | | | glenohumeral osteoarthrosis without superimposed acute osseous | | | abnormalities. Chronic bilateral rotator cuff pathology. I | | | have personally reviewed the images and, if necessary, edited the | | | report. I agree with the report as now presented. Final | | | signature: Odilon Becerra MD 12/03/2018 8:40 AM Preliminary: | | | Odilon Becerra MD Dictation initiated: Odilon Becerra MD | | | 12/03/2018 8:39 AM | | + + + + + | Procedure Note | + + | Service Account, Radiant Res In Interface - 12/03/2018 8:41 AM PDT EXAM: SHOULDER 2 | | VIEWS BILATERAL HISTORY: chronic worsening bilat shoulder pain x years; OA in other | | joints COMPARISON: None. FINDINGS: No evidence of acute fracture or malalignment. Left | | shoulder: There is severe glenohumeral and mild acromioclavicular osteoarthrosis. There | | is marked cortical irregularity at the greater tuberosity. Right shoulder: There is | | severe glenohumeral and mild acromioclavicular osteoarthrosis. There are multiple | | intra-articular ossified bodies including within the long head of the biceps tendon | | sheath. There is cortical irregularity at the greater tuberosity. Incompletely | | characterized degenerative disc disease at the cervicothoracic spine. IMPRESSION: Severe | | bilateral glenohumeral osteoarthrosis without superimposed acute osseous abnormalities. | | Chronic bilateral rotator cuff pathology. I have personally reviewed the images and, if | | necessary, edited the report. I agree with the report as now presented. Final | | signature: Odilon Becerra MD 12/03/2018 8:40 AM Preliminary: Odilon Becerra MD | | Dictation initiated: Odilon Becerra MD 12/03/2018 8:39 AM | | | |Incompletely characterized degenerative disc disease at the cervicothoracic spine. | | | |IMPRESSION: | | | |Severe bilateral glenohumeral osteoarthrosis without superimposed acute osseous abnormaliti es. | | | |Chronic bilateral rotator cuff pathology. | | | |I have personally reviewed the images and, if necessary, edited the report. I agree with th e report as now presented. | | | |Final signature: Odilon Becerra MD 12/03/2018 8:40 AM | |Preliminary: Odilon Becerra MD | |Dictation initiated: Odilon Becerra MD 12/03/2018 8:39 AM | + + + +---------+ + + | Performing | Address | City/State/Zipcode | Phone Number | | Organization | | | | + +---------+ + + | [facility] | | | | | VOICE RECOGNITION 2 | | | | + +---------+ + + X-RAY HAND 1 VIEWS BILATERAL (12/02/2018 7:28 [...] |Preliminary: Aubrey Trimble MD | |Dictation initiated: Aubrey Trimble MD 12/03/2018 8:06 AM | + [...] joint, shoulder region | + + | Chronic hand pain, unspecified laterality | + + | Recurrent cold sores Herpes simplex without mention of complication | + + documented in this encounter"
--- OUTSIDE RECORDS SUMMARY | ~2019-11-17 | XMS | Clinical Summary ---
Demographics + + + | Address | [address] | | | [place] [address] | + + + | Home Phone | | + + + | Preferred Language | Unknown | + + + | Marital Status | Single | + + + | Sikh Affiliation | NRP | + + + | Race | White | + + + | Ethnic Group | Not or | + + + Author + + + | Author | [facility] | + + + | Organization | [facility] | + + + | Address | Unknown | + + + | Phone | Unavailable | + + + Support + + +---------+ + | Name | Relationship | Address | Phone | + + +---------+ + | Citlali Montes De Oca | ECON | Unknown | | + + +---------+ + Care Team Providers + +------+ + | Care Chili Pepper Grinder Name | Role | Phone | + +------+ + | Saumya Mohamud PA-C | PCP | | + +------+ + Source Comments BHARTI is fully live on both [facility] and [facility] Allergies No Known Allergies Medications + + + +---------+------+------+-------+ | Medication | Sig | Dispensed | Refills | Star | End | Statu | | | | | | t | Date | s | | | | | | Date | | | + + + +---------+------+------+-------+ | acyclovir 400 mg | Take 1 tablet by | 30 | 1 | 05/0 | | Activ | | oral | mouth five times | tablet | | 8/20 | | e | | tabletIndications: | daily. For 5 days at | | | 19 | | | | Recurrent cold sores | the first sign of | | | | | | | | an outbreak | | | | | | + + + +---------+------+------+-------+ | cyclobenzaprine 5 | Take 1 tablet by | 20 | 0 | 10/2 | | Activ | | mg oral | mouth three times | tablet | | 4/20 | | e | | tabletIndications: | daily as needed. Do | | | 19 | | | | Strain of right | not use longer than | | | | | | | trapezius muscle, | 2-3 weeks. | | | | | | | initial encounter | | | | | | | + + + +---------+------+------+-------+ | naproxen 500 mg | Take 1 tablet by | 40 | 2 | 10/2 | | Activ | | oral | mouth twice daily as | tablet | | 4/20 | | e | | tabletIndications: | needed for moderate | | | 19 | | | | Primary | pain. | | | | | | | osteoarthritis of | | | | | | | | both shoulders, | | | | | | | | Strain of right | | | | | | | | trapezius muscle, | | | | | | | | initial encounter, | | | | | | | | Arthritis of | | | | | | | | glenohumeral joint | | | | | | | + + + +---------+------+------+-------+ Active Problems + + + | Problem | Noted Date | + + + | Arthritis of glenohumeral joint | 05/20/2019 | + + + | Hallux valgus, left | 06/17/2018 | + + + + + | Overview: Following with [facility] | | [phone]; recommend surgery | + + + + + | Recurrent cold sores | 02/20/2018 | + + + Immunizations + + + + | Name | Administration Dates | Next Due | + + + + | Influenza, seasonal, | 06/03/2014 | | | injectable, | | | | preservative free | | | | (IIV3) | | | + + + + Social History + [...] recent travel history available. | + + Last Filed Vital Signs + + + [...] + + + | Oxygen Saturation | 100% | 01/05/2019 12:16 AM | | | | | PDT [...] | | + + + + + Plan of Treatment + + + + + | Health Maintenance | Due Date | Last Done | Comments | + + + + + | Relationship safety | | | | | screening | 6 | | | + + + + + | Diphtheria,Tetanus,P | | | | | ertussis vaccination | 7 | | | | (1 - Tdap) | | | | + + + + + | Zoster (Shingles) | | | | | vaccination (1 of 2) | 6 | | | + + + + + | COLON CANCER | | 02/26/2018 | | | SCREENING: FECAL | 9 | | | | IMMUNOCHEMICAL TEST | | | | | (FIT) | | | | + + + + + | Influenza (Flu) | | 06/03/2014 | | | vaccination (#1) | 9 | | | + + + + + | Mammogram | | 02/23/2018 | | | | 0 | | | + + + + + | DEPRESSION SCREEN | | 05/20/2019, 05/20/2019, | | | | 0 | 02/27/2018, Additional history | | | | | exists | | + + + + + | Substance abuse | | 05/20/2019, 02/27/2018 | | | screening | 0 | | | + + + + + | Cervical cancer | | 2016, 07/01/2014 | | | screening (pap | 1 | | | | smear) | | | | + + + + + | HIV screening | Completed | 12/23/2017 | | + + + + + | Pneumococcal | Aged Out | | No longer eligible | | vaccination | | | based on patient's | | | | | age to complete this | | | | | topic | + + + + + Results Not on filefrom Last 3 Months Insurance + +--------+ +--------+-------+---------+--------+ | Payer | Benefi | Subscriber | Effect | Phone | Address | Type | | | t Plan | ID | [place] | | | | | | / | | Dates | | | | | | Group | | | | | | + +--------+ +--------+-------+---------+--------+ | YARDAGE ESTIMATOR MEDICAID | YARDAGE ESTIMATOR | xxxxxxxx | Effect | | | Medica | | | [place] | | [place] | | | id | | | [place] | | for | | | | | | PACIFI | | all | | | | | | C | | dates | | | | + +--------+ +--------+-------+---------+--------+ + +--------+ +--------+ + + | Guarantor Name | Accoun | Relation to | Date | Phone | Billing Address | | | t Type | Patient | of | | | | | | | | | | + +--------+ +--------+ + + | Misty Watkins | Person | Self | [birth year] | [address] | | | al/Fam | | 1965 | [phone] | [place] | | | genoveva | | | 2 (Home) | [phone] | + +--------+ +--------+ + +"
--- OUTSIDE RECORDS SUMMARY | ~2019-11-17 | XMS | Encounter Summary ---
Demographics + + + | Address | [address] | | | [place] [address] | + + + | Home Phone | | + + + | Preferred Language | Unknown | + + + | Marital Status | Single | + + + | Baptist Affiliation | NRP | + + + | Race | White | + + + | Ethnic Group | Not or | + + + Author + + + | Author | [facility] | + + + | Organization | [facility] | + + + | Address | Unknown | + + + | Phone | Unavailable | + + + Support + + +---------+ + | Name | Relationship | Address | Phone | + + +---------+ + | Citlali Montes De Oca | ECON | Unknown | | + + +---------+ + Care Team Providers + +------+ + | Care Music Executive Name | Role | Phone | + +------+ + | Saumya Mohamud PA-C | PCP | | + +------+ + Encounter Details +--------+ + + + + | Date | Type | Department | Care Team | Description | +--------+ + + + + | 02/23/ | Hospital | Radiology/Imaging | Saumya Mohamud, | | | 2017 | Encounter | at [place] [address] | [place] [address] | | [address] | [address] | | | | | [address] [place], | [place], [place] | | | | | [place] [address] | [address] | | | | | [phone] | [phone] | | | | | | | [...] | + +--------+ + + + | [facility] MA DIGITAL MAMMO | Routin | 02/23/2018 | | Results for this | | SCREEN BILAT W/CAD | e | 6:44 PM | | procedure are in the | | | | PDT | | results section. | + +--------+ + + + documented in this encounter Results [facility] MA DIGITAL MAMMO SCREEN BILAT W/CAD (02/23/2018 6:44 PM PDT) + + | Specimen | + + | | + + + + + | Narrative | Performed At | + + + | Patient History: Took hormonal contraceptives beginning at age 32. | [facility] | | Last mammogram was performed 3 years and 7 months ago. Reason for | RADIOLOGY | | exam: screening (asymptomatic) Routine screening, asymptomatic | BREAST IMAGING | | [facility] MA DIGITAL MAMMO SCREEN W/CAD: February 23, 2018 - Accession #: | | | [id number] Bilateral CC and MLO view(s) were taken. Prior study | | | comparison: July 15, 2014, left breast mammogram, performed at an | | | outside facility. July 01, 2014, bilateral mammogram, | | | performed at an outside facility. There are scattered fibroglandular | | | densities. No suspicious calcifications, masses, or architectural | | | distortion present. No change when compared to prior studies. | | | The images were obtained using full field digital mammography on the | | | dedicated Peeridea System with R2 CAD. Performed at [facility] | | | [facility]. ASSESSMENT: Negative - Category 1 | | | RECOMMENDATION: Routine screening mammogram in 1 year or 2 years. | | | I have personally reviewed the images and, if necessary, edited | | | the report. I agree with the report as now presented. | | + + + + + | Procedure Note | + + | Service Account, Radiant Res In Interface - 02/24/2018 10:59 AM PDT Patient | | History:Took hormonal contraceptives beginning at age 32.Last mammogram was performed 3 | | years and 7 months ago.Reason for exam: screening (asymptomatic) Routine screening, | | asymptomaticSCP MA DIGITAL MAMMO SCREEN W/CAD: February 23, 2018 - Accession #: | | [id number] CC and MLO view(s) were taken.Prior study comparison: July 15, | | 2013, left breast mammogram,performed at an outside facility. July 01, 2014, | | bilateral mammogram, performed at an outside facility.There are scattered fibroglandular | | densities. No suspicious calcifications, masses, or architectural distortion present. | | No change when compared to prior studies.The images were obtained using full field | | digital mammography on the dedicated Peeridea System with R2 CAD. Performed at [facility].ASSESSMENT: Negative - Category 1RECOMMENDATION:Routine | | screening mammogram in 1 year or 2 years.I have personally reviewed the images and, if | | necessary, edited the report. I agree with the report as now presented. | |calcifications, masses, or architectural distortion present. No | |change when compared to prior studies. | | | |The images were obtained using full field digital mammography on | |the dedicated Hologic System with R2 CAD. Performed at [place] | [facility]. | | | |ASSESSMENT: Negative - Category 1 | | | |RECOMMENDATION: | |Routine screening mammogram in 1 year or 2 years. | | | | | |I have personally reviewed the images and, if necessary, edited the report. I agree with t he report as now presented. | + + + +---------+ + + | Performing | Address | City/State/Zipcode | Phone Number | | Organization | | | | + +---------+ + + | [facility] | | | | | BREAST IMAGING | | | | + +---------+ + + documented in this encounter Visit Diagnoses Not on filedocumented in this encounter"
--- OUTSIDE RECORDS SUMMARY | ~2019-11-17 | XMS | Encounter Summary ---
Demographics + + + | Address | [address] | | | [place] [address] | + + + | Home Phone | | + + + | Preferred Language | Unknown | + + + | Marital Status | Single | + + + | Amish Affiliation | NRP | + + + | Race | White | + + + | Ethnic Group | Not or | + + + Author + + + | Author | [facility] | + + + | Organization | [facility] | + + + | Address | Unknown | + + + | Phone | Unavailable | + + + Support + + +---------+ + | Name | Relationship | Address | Phone | + + +---------+ + | Citlali Montes De Oca | ECON | Unknown | | + + +---------+ + Care Team Providers + +------+ + | Care Visual Merchandiser Name | Role | Phone | + +------+ + | Saumya Mohamud PA-C | PCP | | + +------+ + Reason for Visit + + + | Reason | Comments | + + + | Flank pain | right side | + + + Encounter Details +--------+---------+ + + + | Date | Type | Department | Care Team | Description | +--------+---------+ + + + | 07/30/ | Office | [facility] | Suzette Causey, | Acute right-sided | | 2018 | Visit | at [place] [address] | [address] | thoracic back pain | | | | [address] | [address] | (Primary Dx); | | | | [place] | [place], [place] | Screening | | | | [address] | [address] | cholesterol level | | | | [phone] | [phone] | | | | | | | [...] + + + | Blood Pressure | 116/64 | 07/30/2018 6:18 PM | | | | | PST | | + + + + + | Pulse | 84 | 07/30/2018 6:18 PM | | | | | PST | | + + + + + | Temperature | 36.5 C (97.7 F) | 07/30/2018 6:18 PM | | | | | PST | | + + + + + | Respiratory Rate | 14 | 07/30/2018 6:18 PM | | | | | PST | | + + + + + | Oxygen Saturation | - | - | | + + + + + | Inhaled Oxygen | - | - | | | Concentration | | | | + + + + + | Weight | 60.8 kg (134 lb) | 07/30/2018 6:18 PM | | | | | PST | | + + + + + | Height | - | - | | + + + + + | Body Mass Index | - | - | | + + + + + documented in this encounter Patient Instructions Patient Instructions Suzette Causey MD - 07/30/2018 6:48 PM PSTPlease call or return if pain is worsening, starts to be accompanied by pain with urination, or if you start to have fever. We will call by Friday if anything grows from your culture. Low Back Pain: Exercises Your Care Instructions Here are some examples of typical rehabilitation exercises for your condition. Start each e xercise slowly. Ease off the exercise if you start to have pain. Your doctor or physical therapist will tell you when you can start these exercises and whic h ones will work best for you. How to do the exercises Press-up 1. Lie on your stomach, supporting your body with your forearms. 2. Press your elbows down into the floor to raise your upper back. As you do this, relax yo ur stomach muscles and allow your back to arch without using your back muscles. As your pres s up, do not let your hips or pelvis come off the floor. 3. Hold for 15 to 30 seconds, then relax. 4. Repeat 2 to 4 times. Alternate arm and leg (bird dog) exercise 1. Start on the floor, on your hands and knees. 2. Tighten your belly muscles. 3. Raise one leg off the floor, and hold it straight out behind you. Be careful not to let your hip drop down, because that will twist your trunk. 4. Hold for about 6 seconds, then lower your leg and switch to the other leg. 5. Repeat 8 to 12 times on each leg. 6. Over time, work up to holding for 10 to 30 seconds each time. 7. If you feel stable and secure with your leg raised, try raising the opposite arm straigh t out in front of you at the same time. Wpnn-qt-qlvbx exercise 1. Lie on your back with your knees bent and your feet flat on the floor. 2. Bring one knee to your chest, keeping the other foot flat on the floor (or keeping the o ther leg straight, whichever feels better on your lower back). 3. Keep your lower back pressed to the floor. Hold for at least 15 to 30 seconds. 4. Relax, and lower the knee to the starting position. 5. Repeat with the other leg. Repeat 2 to 4 times with each leg. 6. To get more stretch, put your other leg flat on the floor while pulling your knee to you r chest. Curl-ups 1. Lie on the floor on your back with your knees bent at a 90-degree angle. Your feet shoul d be flat on the floor, about 12 inches from your buttocks. 2. Cross your arms over your chest. If this bothers your neck, try putting your hands behin d your neck (not your head), with your elbows spread apart. 3. Slowly tighten your belly muscles and raise your shoulder blades off the floor. 4. Keep your head in line with your body, and do not press your chin to your chest. 5. Hold this position for 1 or 2 seconds, then slowly lower yourself back down to the floor . 6. Repeat 8 to 12 times. Pelvic tilt exercise 1. Lie on your back with your knees bent. 2. "Brace" your stomach. This means to tighten your muscles by pulling in and imagining you r belly button moving toward your spine. You should feel like your back is pressing to the f marjan and your hips and pelvis are rocking back. 3. Hold for about 6 seconds while you breathe smoothly. 4. Repeat 8 to 12 times. Heel dig bridging 1. Lie on your back with both knees bent and your ankles bent so that only your heels are d igging into the floor. Your knees should be bent about 90 degrees. 2. Then push your heels into the floor, squeeze your buttocks, and lift your hips off the f marjan until your shoulders, hips, and knees are all in a straight line. 3. Hold for about 6 seconds as you continue to breathe normally, and then slowly lower your hips back down to the floor and rest for up to 10 seconds. 4. Do 8 to 12 repetitions. Hamstring stretch in doorway 1. Lie on your back in a doorway, with one leg through the open door. 2. Slide your leg up the wall to straighten your knee. You should feel a gentle stretch tristan n the back of your leg. 3. Hold the stretch for at least 15 to 30 seconds. Do not arch your back, point your toes, or bend either knee. Keep one heel touching the floor and the other heel touching the wall. 4. Repeat with your other leg. 5. Do 2 to 4 times for each leg. Hip flexor stretch 1. Kneel on the floor with one knee bent and one leg behind you. Place your forward knee ov er your foot. Keep your other knee touching the floor. 2. Slowly push your hips forward until you feel a stretch in the upper thigh of your rear l eg. 3. Hold the stretch for at least 15 to 30 seconds. Repeat with your other leg. 4. Do 2 to 4 times on each side. Wall sit 1. Stand with your back 10 to 12 inches away from a wall. 2. Lean into the wall until your back is flat against it. 3. Slowly slide down until your knees are slightly bent, pressing your lower back into the wall. 4. Hold for about 6 seconds, then slide back up the wall. 5. Repeat 8 to 12 times. Follow-up care is a araujo part of your treatment and safety. Be sure to make and go to all ap pointments, and call your doctor if you are having problems. It's also a good idea to know y our test results and keep a list of the medicines you take. Where can you learn more? To learn more about "Low Back Pain: Exercises", log into your FiveCubits account at [email or web address]. You can enter [id number] in the "Skritter Library" search box. Not on FiveCubits? Review the FiveCubits section of your After Visit Summary for directions on clarita w to sign up. Current as of: April 16, 2018 Content Version: 11.9 1058-7490 Fixed - [employer]. Care instructions adapted under license by [facility] & [facility]. If you have questions about a medical condition or this instr uction, always ask your healthcare professional. microDimensions disclaims any dwayne anty or liability for your use of this information. documented in this encounter Progress Notes Suzette Causey MD - 07/30/2018 6:15 PM PSTFormatting of this note might be different fro m the original. SUBJECTIVE CC: Flank pain (right side) HPI: 1. Side pain, Right: Started about a week ago. No urgency, frequency, hematuria. Using h eat, helps. Ibuprofen doesn't help much. Much worse with any movement. No incontinence. N o nausea/vomiting. No abdominal pain. No weakness. Had a kidney infection once in the past a nd it felt like this so wonders if that is what is going on. Last UTI 3 years ago. Does lift heavy things at work though nothing out of the range of normal. Has hx sciatica but feels this is something different. No injuries lately and no other fla res in back pain. OBJECTIVE BP 116/64 | Pulse 84 | Temp (Src) 36.5 C (97.7 F) (Oral) | RR 14 | Wt 60.8 kg (134 lb) There is no height or weight on file to calculate BMI. Physical Exam: General: Alert, well-appearing, no acute distress HEENT: Mucous membranes moist CV: Regular rate and rhythm, no murmur Resp: Clear to auscultation Abd: Soft, non-tender, non-distended, +bowel sounds, no masses, no CVA tenderness, though +R-sided lumbar paraspinous and lat dorsi tenderness to palpation Ext: Warm and well perfused, no edema Neuro: Conversant, moving all extremities, ambulating Psych: Pleasant, cooperative, appropriate affect and behavior ASSESSMENT/PLAN Misty was seen today for flank pain. Diagnoses and all orders for this visit: Acute right-sided thoracic back pain - UA 10 DIP, POC - CULTURE, URINE BACTI - CULTURE, URINE [place] Screening cholesterol level - LIPID SET (TRIG, T CHOL, HDL, CALC LDL); Future By hx and exam, pain is most consistent with lumbar muscle strain, though UA with isolated +nitrite. Sending for cx to rule out infection, though without any urinary sx this is felt less likely. Advised stretches for back pain, heat/ice, and NSAIDS. Return to activity as tolerated. Return here in 2 weeks if not resolved or anytime if new sx present. Pt agrees. Prevention: Reviewed, ordered future lipid, discussed with pt. hillVikki agosto MA - 07/30/2018 6:15 PM PSTPt is here for possible kidney infection-right side flank pain x 1 we ek. documented in this encounter Plan of Treatment Not on filedocumented as of this encounter Procedures + +--------+ + + + | Procedure Name | Priori | Date/Time | Associated Diagnosis | Comments | | | ty | | | | + +--------+ + + + | UA DIPSTICK 10 DIP | Routin | 07/30/2018 | Acute right-sided | Results for this | | W/O MICRO | e | 6:43 PM | thoracic back pain | procedure are in the | | (AUTOMATED), POC | | PST | | results section. | + +--------+ + + + | URINE CULTURE WORKUP | Routin | 07/30/2018 | Acute right-sided | Results for this | | | e | 6:24 PM | thoracic back pain | procedure are in the | | | | PST | | results section. | + +--------+ + + + | CULTURE, URINE [facility] | Routin | 07/30/2018 | Acute right-sided | Results for this | | | e | 6:24 PM | thoracic back pain | procedure are in the | | | | PST | | results section. | + +--------+ + + + | CULTURE, URINE BACTI | Routin | 07/30/2018 | Acute right-sided | Results for this | | | e | 6:24 PM | thoracic back pain | procedure are in the | | | | PST | | results section. | + +--------+ + + + documented in this encounter Results UA 10 DIP, POC (07/30/2018 6:43 PM PST) + + + + + + | [...] + + + + | APPEARANCE | Cloudy | | [facility] | | [...] + + + + | NITRITES | Positive (A) | Negative | [facility] | [...] + + + | PH (UA | 5.5 | 5.0 - 8.0 | [facility] [...] + + + + | SPECIFIC | 1.025 | 1.005 - 1.030 | [facility] - [...] | + + + + + | [facility] | [address] [facility] | [place], [place] | [phone] | | [facility] | Road | [address] | | + + + + + URINE CULTURE WORKUP (07/30/2018 6:24 PM PST) + + + + + + | Component | Value | Ref Range | Performed | Pathologist | | | | | At | Signature | + + + + + + | ORGANISM | Escherichia coli (A) | | [facility] | | | | | | [place] | | + + + + + + + + | Specimen | + + | Urine | + + + + + | Narrative | Performed At | + + + | Culture Report: >100,000 cfu/ml Escherichia coli | [facility] | | | [place] | + + + + + + + + | Organism | Antibiotic | Method | Susceptibility | + + + + + | Escherichia coli | Amikacin | [facility]US[facility] | Sensitive | + + + + + | Escherichia coli | Amoxicillin/Clavulan | SUSCEPT[facility] | Sensitive | | | ate | | | + + + + + | Escherichia coli | Ampicillin | [facility]CEPT[facility] | Resistant | + + + + + | Escherichia coli | Cefazolin | [facility]CEPT[facility] | Sensitive | + + + + + | Escherichia coli | Ciprofloxacin | [facility]USCEPT[facility] | Resistant | + + + + + | Escherichia coli | Gentamicin | [facility]USCEPT[facility] | Resistant | + + + + + | Escherichia coli | Nitrofurantoin | [facility]CEPT[facility] | Sensitive | + + + + + | Escherichia coli | Piperacillin/Tazobac | SUSCEPT[facility] | Sensitive | | | lockhart | | | + + + + + | Escherichia coli | Tobramycin | SUSCEPTIBILITY[facility] | Intermediate | + + + + + | Escherichia coli | Tetracycline | [facility]CEPT[facility] | Resistant | + + + + + | Escherichia coli | Trimethoprim/Sulfa | SUSCEPTIBILITY[facility] | Resistant | + + + + + + + | Comment: Cefazolin | | results can be used | | to predict potential | | effectiveness of | | oral cephalosporins | | (e.g., cephalexin) | | only for treatment | | of uncomplicated | | lower urinary tract | | infections. | + + + + + + + | Performing | Address | City/State/Zipcode | Phone Number | | Organization | | | | + + + + + | [facility] | [address] | [place] [address] | | | [place] | | | | + + + + + CULTURE, URINE [facility] (07/30/2018 6:24 PM PST) + + + + + + | Component | Value | Ref Range | Performed | Pathologist | | | | | At | Signature | + + + + + + | URINE | See Cx Results (A) | | [facility] | | | CULTURE | | | LABORATORY | | | [facility] | | | SERVICES, | | | | | | CORE | | + + + + + + + + | Specimen | + + | Urine | + + + + + + + | Performing | Address | City/State/Zipcode | Phone Number | | Organization | | | | + + + + + | [facility] | [address] | [place] [address] | | | SERVICES, CORE | [address] | | | + + + + + documented in this encounter Visit Diagnoses + + | Diagnosis | + + | Acute right-sided thoracic back pain - Primary | + + | Screening cholesterol level Screening for lipoid disorders | + + documented in this encounter
--- OUTSIDE RECORDS SUMMARY | ~2019-11-17 | XMS | Encounter Summary ---
Demographics + + + | Address | [address] | | | [place] [address] | + + + | Home Phone | | + + + | Preferred Language | Unknown | + + + | Marital Status | Single | + + + | Mosque Affiliation | NRP | + + + [...] Team Providers + +------+ + | Care Snow Blower Name | Role | Phone | + +------+ + | Saumya Mohamud PA-C | PCP | | + +------+ + Encounter Details +--------+ + + + + | Date | Type | Department | Care Team | Description | +--------+ + + + + | 12/23/ | Lab | [facility] | Simon Mcdonough DO | | | 2017 | Requisition | Medicine Lab at | [address] | | | | | [place] [address] [address] | | | | | [address] | [place], [place] | | | | | [place], [place] | [address] | | | | | [address] | | | | | | | [...] modified from | [facility] | | original virtualization architect's approved specifications. The performance | LABORATORY | | of the TEMPLATE INSPECTOR HIV Combo test, with or without confirmation, [...] | + + + + + | [facility] | [address] | [place] [address] | | | SERVICES, SPECIAL | [address] | | | | IMM + COAG | | | | + + + + + documented in this encounter Visit Diagnoses + + | Diagnosis | + + | Encounter for screening for HIV | + + documented in this encounter"
--- OUTSIDE RECORDS SUMMARY | ~2019-11-17 | XMS | Encounter Summary ---
Demographics + + + | Address | [address] | | | [place] [address] | + + + | Home Phone | | + + + | Preferred Language | Unknown | + + + | Marital Status | Single | + + + | Oriental Orthodox Affiliation | NRP | + + + | Race | White | + + + | Ethnic Group | Not or | + + + Author + + + | Author | [facility] | + + + | Organization | [facility] | + + + | Address | Unknown | + + + | Phone | Unavailable | + + + Support + + +---------+ + | Name | Relationship | Address | Phone | + + +---------+ + | Citlali Montes De Oca | ECON | Unknown | | + + +---------+ + Care Team Providers + +------+ + | Care School Counselor Name | Role | Phone | + [...] | | | | | shoulders | [address] | [address] | | | | | Osteoarthrit | [place], [place] | [place] | | | | | is of both | [address] | [address] | | | | | shoulders, | Phone: | Phone: | | | | | unspecified | [phone] | [phone] | | | | | osteoarthrit | Fax: | Fax: | | | | | is type | [phone] | [phone] | | | | | Procedures | [...] + + | 03/05/ | Office | [facility] | Gregorio Lynn, | Chronic pain of both | | 2019 | Visit | at [place] [address] | MD [address] [facility] | shoulders (Primary | | | | [address] | [place], [place] | Dx); Osteoarthritis | | | | [place] | [address] | of both shoulders, | | | | [address] | [phone] | unspecified | | | | [phone] | | osteoarthritis type | +--------+---------+ + [...] pain bilateral shoulder pain 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 GREGORIO LYNN MD, [facility] Family Medicine Legal Support Assistant Professor [id number] [place] MA - 03/05/2019 10:20 AM PDTBilateral shoulder pain Injection right shoulder documented in this encounter Plan of Treatment Not on filedocumented as of this encounter Procedures + +--------+ + + + | Procedure Name | Priori | Date/Time | Associated Diagnosis | Comments | | | ty | | | | + +--------+ + + + | NV DRAIN/INJECT | Routin | 03/05/2019 | Chronic [...]
--- OUTSIDE RECORDS SUMMARY | ~2019-11-17 | XMS | Encounter Summary ---
Demographics + + + | Address | [address] | | | [place] [address] | + + + | Home Phone [...] Team Providers + +------+ + | Care Acoustical Carpenter Name | Role | Phone | + [...] Coordination | | 2018 | | at [place] [address] | [place] [address] [address] | (CD copy images) | | | | [address] | [address] | | | | | Dylan [place], [place] | [place], [place] | | | | | [address] | [address] | | | | | [phone] | | | +--------+ + + + [...]
--- OUTSIDE RECORDS SUMMARY | ~2019-11-17 | XMS | Encounter Summary ---
Demographics + + + | Address | [address] | | | [place] [address] | + + + | Home Phone | | + + + | Preferred Language | Unknown | + + + | Marital Status | Single | + + + | Jew Affiliation | NRP | + + + [...] Team Providers + +------+ + | Care Windmill Mechanic Name | Role | Phone | + [...]
--- OUTSIDE RECORDS SUMMARY | ~2019-11-17 | XMS | Encounter Summary ---
Demographics + + + | Address | [address] | | | [place] [address] | + + + | Home Phone | | + + + | Preferred Language | Unknown | + + + | Marital Status | Single | + + + | Scientologist Affiliation | NRP | + + + | Race | White | + + + | Ethnic Group | Not or | + + + Author + + + | Author | [facility] | + + + | Organization | [facility] | + + + [...] Team Providers + +------+ + | Care Sexologist Name | Role | Phone | + +------+ + | Saumya Mohamud PA-C | PCP | | + +------+ + Reason for Visit + + + | Reason | Comments | + + + | Contraception | | + + + Encounter Details +--------+ + + + + | Date | Type | Department | Care Team | Description | +--------+ + + + + | 02/17/ | Telephone | [facility] | Saumya Mohamud, | Contraception | | 2018 | | at [place] [address] | [place] [address] | | | | | [address] | [facility] | | | | | Dylan Sar[place], [place] | [place], [place] | | | | | [address] | [address] | | | | | [phone] | [phone] | | | | | | | [...]
--- OUTSIDE RECORDS SUMMARY | ~2019-11-17 | XMS | Encounter Summary ---
Demographics + + + | Address | [address] | | | [place] [address] | + + + | Home Phone | | + + + | Preferred Language | Unknown | + + + | Marital Status | Single | + + + | Mandaen Affiliation | NRP | + + + | Race | White | + + + | Ethnic Group | Not or | + + + Author + + + | Author | [facility] | + + + | Organization | [facility] | + + + | Address | Unknown | + + + | Phone | Unavailable | + + + Support + + +---------+ + | Name | Relationship | Address | Phone | + + +---------+ + | Citlali Montes De Oca | ECON | Unknown | | + + +---------+ + Care Team Providers + +------+ + | Care Scraper Hand Name | Role | Phone | + [...] | | 2018 | Visit | at [place] [address] | [address] | thoracic back pain | | | | [address] | [address] | (Primary Dx); | | | | [place], [place] | [place], [place] | Screening | | | | [address] | [address] | cholesterol level | | | | [phone] | [phone] | | | | | | | [...] front of you at the same time. Ixyf-qt-ubtup exercise 1. Lie on your back with [...] "Low Back Pain: Exercises", log into your Pocket Change account at [email or web address]. You can enter [email or web address] in the "JoGuru Library" search box. Not on Pocket Change? Review the Pocket Change section of your After Visit Summary for directions on clarita w to sign up. Current as of: April 16, 2018 Content Version: 11.9 3714-5448 Quewey, [employer]. Care instructions adapted under license by [facility] & [facility]. If you have questions about a medical condition or this instr uction, always ask your healthcare professional. Sportsgrit disclaims any dwayne anty or liability for [...] + + + | [facility] | [address] | [place], [place] | [phone] | | [facility] | Road | [address] | | + + + + + [...] + | [facility] | [address] | [place] [address] | | | [place] | | | [...] + + + + + | [facility] | [address] | [place] [address] | | | SERVICES, CORE | [address] | | | + + + + + documented in this encounter Visit Diagnoses + + | Diagnosis | + + | Acute right-sided thoracic back pain - Primary | + + | Screening cholesterol level Screening for lipoid disorders | + + documented in this encounter
--- OUTSIDE RECORDS SUMMARY | ~2019-11-17 | XMS | Encounter Summary ---
Demographics + + + | Address | [address] | | | [place] [address] | + + + | Home Phone [...] Author + + + | Author | [facility] | + + + | Organization | [facility] | + + + | Address | Unknown | + + + | Phone | Unavailable | + + + Support + + +---------+ + | Name | Relationship | Address | Phone | + + +---------+ + | Citlali Montes De Oca | ECON | Unknown | | + + +---------+ + Care Team Providers + +------+ + | Care Aircraft Electrical Systems Specialist Name | Role | Phone | + +------+ + | Saumya Mohamud PA-C | PCP | | + +------+ + Encounter Details +--------+ + + + + | Date | Type | Department | Care Team | Description | +--------+ + + + + | 12/02/ | Hospital | Radiology/Imaging | Saumya Mohamud, | | | 2018 | Encounter | at [place] [address] | [place] [address] | | | | [address] | [address] | | | | | [address] [place], | [place], [place] | | | | | [place] [address] | [address] | | | | | [phone] | | | | | | | [...]
--- OUTSIDE RECORDS SUMMARY | ~2019-11-17 | XMS | Encounter Summary ---
Demographics + + + | Address | [address] | | | [place] [address] | + + + | Home Phone [...] Team Providers + +------+ + | Care Home Health Outreach Coordinator Name | Role | Phone | + +------+ + | Saumya Mohamud PA-C | | + +------+ + Encounter Details +--------+--------+ + + + | Date | Type | Department | Care Team | Description | +--------+--------+ + + + | 12/21/ | Travel | | | | | [...]
--- OUTSIDE RECORDS SUMMARY | ~2019-11-17 | XMS | Encounter Summary ---
Demographics + + + | Address | [address] | | | [place] [address] | + + + | Home Phone | | + + + | Preferred Language | Unknown | + + + | Marital Status | Single | + + + | Hinduism Affiliation | NRP | + + + | Race | White | + + + | Ethnic Group | Not or | + + + Author + + + | Author | [facility] | + + + | Organization | [facility] | + + + | Address | Unknown | + + + | Phone | Unavailable | + + + Support + + +---------+ + | Name | Relationship | Address | Phone | + + +---------+ + | Citlali Montes De Oca | ECON | Unknown | | + + +---------+ + Care Team Providers + +------+ + | Care Lacquer Dipping Machine Operator Name | Role | Phone [...] | +--------+ + + + + | 01/05/ | Emergency | [facility] Emergency | Carissa Sanchez | | | 2019 | | Department [address] | | | | | [address] | [address] | | | | | [facility] | [place], [place] | | | | | [place], [place] | [address] | | | | | | [phone] | | | | | [phone] | | | +--------+ + + + [...] + + + | Blood Pressure | 123/69 | 01/05/2019 12:16 AM | | | | | PDT | | + + + + + | Pulse | 90 | 01/05/2019 12:16 AM | | | | | PDT | | + + + + + | Temperature | 36.7 C (98.1 F) | 01/05/2019 12:16 AM | | | | | PDT | | + + + + + | Respiratory Rate | 14 | 01/04/2019 8:32 PM | | | | | PDT | | + + + + + | Oxygen Saturation | 100% | 01/05/2019 12:16 AM | | | | | PDT | | + + + + + | Inhaled Oxygen | - | - | | | Concentration | | | | + + + + + | Weight | 61.7 kg (136 lb) | 01/04/2019 8:32 PM | | | | | PDT | | + + + + + | Height | - | - | | + + + + + | Body Mass Index | - | - | | + + + + + documented in this encounter Discharge Instructions Instructions Kwasi Garcia, Matthew - 01/05/2019You had a reassuring visit. We think your fl ank pain is due to getting over pyelonephritis. It may also be due to an ovarian cyst. In either case, we feel you are appropriate to be cared for at home. For pain, use 1000 millig gamaliel of Tylenol, up to 4 times daily. Use 600 mg of ibuprofen, up to 3 times daily. Your u rine today did not show any evidence for infection. No further antibiotics are required. F or worsening pain despite home medications, repetitive vomiting, high fever, or any other ne w or concerning symptoms, return to the ER. documented in this encounter Medications at Time of [...] | + +--------+ + + + | CT ED ABDOMEN AND | Urgent | 01/05/2019 | | Results for this | | PELVIS WO IV/WO ORAL | | 3:16 AM | | procedure are in the | | CONTRAST | | PDT | | results section. | + +--------+ + + + | HCG URINE, POC | Urgent | 01/04/2019 | | Results for this | | | | 8:55 PM | | procedure are in the | | | | PDT | | results section. | + +--------+ + + + | RAINBOW HOLD TUBE - | Urgent | 01/04/2019 | | | | RED TOP | | 8:36 PM | | | | | | PDT | | | + +--------+ + + + | RAINBOW HOLD TUBE - | Urgent | 01/04/2019 | | | | BLUE TOP | | 8:36 PM | | | | | | PDT | | | + +--------+ + + + | CBC AND AUTO DIFF | Urgent | 01/04/2019 | | Results for this | | | | 8:36 PM | | procedure are in the | | | | PDT | | results section. | + +--------+ + + + | RAINBOW HOLD, CORE | Urgent | 01/04/2019 | | Results for this | | PANEL | | 8:36 PM | | procedure are in the | | | | PDT | | results section. | + +--------+ + + + | CBC, WITH | Urgent | 01/04/2019 | | Results for this | | DIFFERENTIAL | | 8:36 PM | | procedure are in the | | | | PDT | | results section. | + +--------+ + + + | COMPLETE METABOLIC | Urgent | 01/04/2019 | | Results for this | | SET | | 8:36 PM | | procedure are in the | | (NA,K,CL,CO2,BUN,CRE | | PDT | | results section. | | AT,GLUC,CA,AST,ALT,B | | | | | | SAVANNA TOTAL,ALK | | | | | | PHOS,ALB,PROT TOTAL) | | | | | + +--------+ + + + | UA, DIPSTICK ONLY | Urgent | 01/04/2019 | | Results for this | | | | 8:36 PM | | procedure are in the | | | | PDT | | results section. | + +--------+ + + + | URINE, MICROSCOPIC | Urgent | 01/04/2019 | | Results for this | | EXAM | | 8:36 PM | | procedure are in the | | | | PDT | | results section. | + +--------+ + + + | URINE SCREEN FOR | Urgent | 01/04/2019 | | Results for this | | CULTURE | | 8:36 PM | | procedure are in the | | | | PDT | | results section. | + +--------+ + + + | BLOOD BANK HOLD TUBE | Urgent | 01/04/2019 | | Results for this | | - DON | | 8:36 PM | | procedure are in the | | | | PDT | | results section. | | T PROCESS | | | | | + +--------+ + + + documented in this encounter Results CT ED ABDOMEN AND PELVIS WO IV/WO ORAL CONTRAST (01/05/2019 3:16 AM PDT) + + | Specimen | + + | | + + + + + | Narrative | Performed At | + + + | EXAM: CT of the abdomen and pelvis WITHOUT intravenous contrast. | [facility] | | HISTORY: history of pyelonephritis treated with antibiotics, | RADIOLOGY VOICE | | persistent back pain COMPARISON: None available. TECHNIQUE: | RECOGNITION 2 | | CT of the abdomen and pelvis without intravenous contrast. Coronal | | | and sagittal reformats were generated and reviewed. FINDINGS: | | | Lack of intravenous contrast decreases sensitivity for detection of | | | vascular and parenchymal pathology. LOWER THORAX: Unremarkable. | | | LIVER: Scattered hepatic hypodensities the largest of which measures | | | 7 mm within hepatic segment 8, statistically represent cysts versus | | | hemangioma. BILIARY: Unremarkable. PANCREAS: Unremarkable. | | | SPLEEN: Unremarkable. ADRENALS: Unremarkable. KIDNEYS/URETERS: No | | | renal, urinary bladder or ureteric calculi. No hydronephrosis. | | | Questioned subtle right perinephric stranding. PELVIC ORGANS/BLADDER: | | | 1.3 x 3.1 cm right ovarian cyst. IUD is in place. GI TRACT: | | | Extensive stool burden in colon suggesting constipation PERITONEUM: | | | No free air or fluid. LYMPH NODES: No lymphadenopathy. VESSELS: | | | Unremarkable. BONES AND SOFT TISSUES: Multilevel degenerative | | | changes of the visualized spine. No acute osseous normality. No | | | suspicious osseous lesion. IMPRESSION: No renal calculi or | | | hydronephrosis. Question right perinephric stranding that may | | | represent pyelonephritis in the appropriate clinical scenario. Limited | | | evaluation for pyelonephritis on noncontrast CT. Availability of | | | results was communicated to the ED freight elevator operator on 01/05/2019 3:28 AM by | | | Chuck Reza MD. I have personally reviewed the images and, if | | | necessary, edited the report. I agree with the report as now | | | presented. Final signature: Sue Bhatia MD 01/05/2019 9:15 AM | | | Preliminary: Bev Josue MD Dictation initiated: Bev | | | Sinai Josue MD 01/05/2019 3:18 AM | | + + + + + | Procedure Note | + + | Service Account, [facility] [facility] In Interface - 01/05/2019 9:16 AM PDT EXAM: CT of the | | abdomen and pelvis WITHOUT intravenous contrast. HISTORY: history of pyelonephritis | | treated with antibiotics, persistent back pain COMPARISON: None available. TECHNIQUE: | | CT of the abdomen and pelvis without intravenous contrast. Coronal and sagittal | | reformats were generated and reviewed. FINDINGS: Lack of intravenous contrast decreases | | sensitivity for detection of vascular and parenchymal pathology. LOWER THORAX: | | Unremarkable. LIVER: Scattered hepatic hypodensities the largest of which measures 7 mm | | within hepatic segment 8, statistically represent cysts versus hemangioma. BILIARY: | | Unremarkable.PANCREAS: Unremarkable. SPLEEN: Unremarkable.ADRENALS: | | Unremarkable.KIDNEYS/URETERS: No renal, urinary bladder or ureteric calculi. No | | hydronephrosis. Questioned subtle right perinephric stranding.PELVIC ORGANS/BLADDER: 1.3 | | x 3.1 cm right ovarian cyst. IUD is in place. GI TRACT: Extensive stool burden in | | colon suggesting constipationPERITONEUM: No free air or fluid. LYMPH NODES: No | | lymphadenopathy.VESSELS: Unremarkable. BONES AND SOFT TISSUES: Multilevel degenerative | | changes of the visualized spine. No acute osseous normality. No suspicious osseous | | lesion. IMPRESSION: No renal calculi or hydronephrosis. Question right perinephric | | stranding that may represent pyelonephritis in the appropriate clinical scenario. | | Limited evaluation for pyelonephritis on noncontrast CT. Availability of results was | | communicated to the ED freight elevator operator on 01/05/2019 3:28 AM by Chuck Reza MD. I have | | personally reviewed the images and, if necessary, edited the report. I agree with the | | report as now presented. Final signature: Sue Bhatia MD 01/05/2019 9:15 AM | | Preliminary: Bev Josue MD Dictation initiated: Bev Josue MD 01/05/2019 | | 3:18 AM | |GI TRACT: Extensive stool burden in colon suggesting constipation | |PERITONEUM: No free air or fluid. | | | |LYMPH NODES: No lymphadenopathy. | |VESSELS: Unremarkable. | | | |BONES AND SOFT TISSUES: Multilevel degenerative changes of the visualized spine. No acute o sseous normality. No suspicious osseous lesion. | | | |IMPRESSION: | | | |No renal calculi or hydronephrosis. Question right perinephric stranding that may represent pyelonephritis in the appropriate clinical scenario. Limited evaluation for pyelonephritis on noncontrast CT. | | | |Availability of results was communicated to the ED freight elevator operator on 01/05/2019 3:28 AM by Chuck Reza MD. | | | |I have personally reviewed the images and, if necessary, edited the report. I agree with th e report as now presented. | | | |Final signature: Sue Bhatia MD 01/05/2019 9:15 AM | |Preliminary: Bev Josue MD | |Dictation initiated: Bev Josue MD 01/05/2019 3:18 AM | + + + +---------+ + + | Performing | Address | City/State/Zipcode | Phone Number | | Organization | | | | + +---------+ + + | [facility] | | | | | VOICE RECOGNITION 2 | | | | + +---------+ + + HCG URINE, POC (01/04/2019 8:55 PM PDT) + + + + + + | Component | Value | Ref Range | Performed | Pathologist | | | | | At | Signature | + + + + + + | HCG URINE, | Negative | Negative | [facility] | | | POC | | | [facility] | | | | | | [facility] | | | | | | OF CARE | | | | | | TESTS | | + + + + + + + + | Specimen | + + | Urine - Urine | | (substance) | + + + + + + + | Performing | Address | City/State/Zipcode | Phone Number | | Organization | | | | + + + + + | [facility] | [address] | [place], [place] | | | [facility] | [facility] | [address] | | | TESTS | | | | + + + + + RAINBOW HOLD TUBE - RED TOP (01/04/2019 8:36 PM PDT) + + | Specimen | + + | Blood - Blood | | (substance) | + + + + + + + | Performing | Address | City/State/Zipcode | Phone Number | | Organization | | | | + + + + + | [facility] | [address] | [place] [address] | | | SERVICES, CORE | [address] | | | + + + + + RAINBOW HOLD TUBE - BLUE TOP (01/04/2019 8:36 PM PDT) + + | Specimen | + + | Blood - Blood | | (substance) | + + + + + + + | Performing | Address | City/State/Zipcode | Phone Number | | Organization | | | | + + + + + | [email or web address] | [address] [facility] [address] | [place] [address] | | | SERVICES, CORE | [address] | | | + + + + + CBC AND AUTO DIFF (01/04/2019 8:36 PM PDT) + + + + + + | Component | Value | Ref Range | Performed | Pathologist | | | | | At | Signature | + + + + + + | WHITE CELL | 5.26 | 3.50 - 10.80 | [facility] | | | COUNT | | K/cu mm | LABORATORY | | | | | | SERVICES, | | | | | | CORE | | + + + + + + | RED CELL | 4.07 | 4.00 - 5.20 | [facility] | | | COUNT | | M/cu mm | LABORATORY | | | | | | SERVICES, | | | | | | CORE | | + + + + + + | HEMOGLOBIN | 12.2 | 12.0 - 16.0 | [facility] | | | | | g/dL | LABORATORY | | | | | | SERVICES, | | | | | | CORE | | + + + + + + | HEMATOCRIT | 37.3 | 36.0 - 46.0 % | [facility] | | | | | | LABORATORY | | | | | | SERVICES, | | | | | | CORE | | + + + + + + | MCV | 91.6 | 80.0 - 100.0 fL | [facility] | | | | | | LABORATORY | | | | | | SERVICES, | | | | | | CORE | | + + + + + + | MCHC | 32.7 | 32.0 - 36.0 | [facility] | | | | | g/dL | LABORATORY | | | | | | SERVICES, | | | | | | CORE | | + + + + + + | RDW SD | 42.0 | 35.1 - 46.3 fL | [facility] | | | | | | LABORATORY | | | | | | SERVICES, | | | | | | CORE | | + + + + + + | PLATELET | 194 | 150 - 400 K/cu | [facility] [...] + + + + | NEUTROPHIL | 55.0 | 50.0 - 70.0 % | [facility] | | | % | | | LABORATORY | | | | | | SERVICES, | | | | | | CORE | | + + + + + + | LYMPHOCYTE | 34.0 | 18.0 - 42.0 % | [facility] | | | % | | | LABORATORY | | | | | | SERVICES, | | | | | | CORE | | + + + + + + | MONOCYTE % | 7.0 | 3.5 - 9.0 % | [facility] | | | | | | LABORATORY | | | | | | SERVICES, | | | | | | CORE | | + + + + + + | EOS % | 3.2 (H) | 1.0 - 3.0 % | [facility] | | | | | | LABORATORY | | | | | | SERVICES, | | | | | | CORE | | + + + + + + | BASO % | 0.6 | 0.0 - 2.0 % | [facility] [...] + + + + | NEUTROPHIL | 2.89 | 1.80 - 7.70 | [facility] | | | # | | K/cu mm | LABORATORY | | | | | | SERVICES, | | | | | | CORE | | + + + + + + | LYMPHOCYTE | 1.79 | 1.00 - 4.80 | [facility] | | | # | | K/cu mm | LABORATORY | | | | | | SERVICES, | | | | | | CORE | | + + + + + + | MONOCYTE # | 0.37 | 0.10 - 0.90 | [facility] | [...] + + + | BASO # | 0.03 | 0.00 - 0.10 | [facility] | [...] | + + + + + | [facility] | [address] | [place] [address] | | | SERVICES, CORE | [address] | | | + + + + + BLOOD BANK HOLD TUBE - DON T PROCESS (01/04/2019 8:36 PM PDT) + + + + + + | Component | Value | Ref Range | Performed | Pathologist | | | | | At | Signature | + + + + + + | SPECIMEN | Sample received with | | [facility] | | | COLLECTED, | adeq label/volume to | | LABORATORY | | | HELD | process | | SERVICES, | | | | | | TRANSFUSION | | | | | | MEDICINE | | + + + + + + + + | Specimen | + + | Blood - Blood | | (substance) | + + + + + + + | Performing | Address | City/State/Zipcode | Phone Number | | Organization | | | | + + + + + | [facility] | [address] | [place] [address] | | | SERVICES, | [address] | | | | TRANSFUSION MEDICINE | | | | + + + + + COMPLETE METABOLIC SET (NA,K,CL,CO2,BUN,CREAT,GLUC,CA,AST,ALT,BILI TOTAL,ALK PHOS,ALB,PROT TOTAL) (01/04/2019 8:36 PM PDT) + +---------+ + + + | Component | Value | Ref Range | Performed | Pathologist | | | | | At | Signature | + +---------+ + + + | GLUCOSE, | 104 (H) | 70 - 99 mg/dL | [facility] | | | PLASMA | | | LABORATORY | | | (LAB) | | | SERVICES, | | | | | | CORE | | + +---------+ + + + | BUN, PLASMA | 14 | 6 - 20 mg/dL | [facility] | | | (LAB) | | | LABORATORY | | | | | | SERVICES, | | | | | | CORE | | + +---------+ + + + | CREATININE | 0.80 | 0.60 - 1.10 | [facility] | | | PLASMA | | mg/dL | LABORATORY | | | (LAB) | | | SERVICES, | | | | | | CORE | | + +---------+ + + + | EGFR | >60 | >60 mL/min | [facility] | | | - | | | LABORATORY | | | AUSTRALIAN | | | SERVICES, | | | [...] +---------+ + + + | POTASSIUM, | 3.6 | 3.4 - 5.0 | [facility] | | | PLASMA | | mmol/L | LABORATORY | | | (LAB) | | | SERVICES, | | | | | | CORE | | + +---------+ + + + | CHLORIDE, | 109 (H) | 97 - 108 mmol/L | [facility] | | | PLASMA | | | LABORATORY | | | (LAB) | | | SERVICES, | | | | | | CORE | | + +---------+ + + + | TOTAL CO2, | 29 | 21 - 32 mmol/L | [facility] | | | PLASMA | | | LABORATORY | | | (LAB) | | | SERVICES, | | | | | | CORE | | + +---------+ + + + | CALCIUM, | 9.4 | 8.6 - 10.2 | [facility] | | | PLASMA | | mg/dL | LABORATORY | | | (LAB) | | | SERVICES, | | | | | | CORE | | + +---------+ + + + | CALCIUM(ALB | 9.8 | 8.6 - 10.2 | [facility] | [...] +---------+ + + + | TOTAL | 6.9 | 6.4 - 8.2 g/dL | [facility] | | | PROTEIN, | | | LABORATORY | | | PLASMA | | | SERVICES, | | | (LAB) | | | CORE | | + +---------+ + + + | ALBUMIN, | 3.5 | 3.5 - 4.7 g/dL | [facility] | | | PLASMA | | | LABORATORY | | | (LAB) | | | SERVICES, | | | | | | CORE | | + +---------+ + + + | ALK PHOS | 98 | 42 - 98 U/L | [facility] | | | | | | LABORATORY | | | | | | SERVICES, | | | | | | CORE | | + +---------+ + + + | AST(SGOT) | 15 | <=41 U/L | [facility] | | | | | | LABORATORY | | | | | | SERVICES, | | | | | | CORE | | + +---------+ + + + | ALT (SGPT) | 26 | <=60 U/L | [facility] | | | | | | LABORATORY | | | | | | SERVICES, | | | | | | CORE | | + +---------+ + + + | ANION GAP | 4 | 4 - 11 mmol/L | [facility] | | | | | | LABORATORY | | | | | | SERVICES, | | | | | | CORE | | + +---------+ + + + | ANION | 5 | 4 - 11 mmol/L | [facility] [...] MDRD equation recommended by the National | [facility] | | Kidney Disease Education Program. Estimated [...] [facility] | [address] | [place] [address] | | | [place] | [address] | | | + + + + + URINE, MICROSCOPIC EXAM (01/04/2019 8:36 PM PDT) + + + + + + | Component | Value | Ref Range | Performed | Pathologist | | | | | At | Signature | + + + + + + | RED CELLS | 2 | 0 - 3 /hpf | [facility] | | | | | | LABORATORY | | | | | | SERVICES, | | | | | | CORE | | + + + + + + | WHITE CELLS | 2 | 0 - 5 /hpf | [facility] | | | | | | LABORATORY | | | | | | SERVICES, | | | | | | CORE | | + + + + + + | BACTERIA | None | None /hpf | [facility] [...] + + + + | SQUAMOUS | Few | None, Few /hpf | [...] + + + + | CALCIUM | Many (A) | None, Few /hpf | [facility] [...] | + + + + + | [facility] | [address] | [place] [address] | | | SERVICES, CORE | [address] | | | + + + + + URINE SCREEN FOR CULTURE (01/04/2019 8:36 PM PDT) + + + + + + | Component | Value | Ref Range | Performed | Pathologist | | | | | At | Signature | + + + + + + | URINE | Negative | Negative | [facility] | | | SCREEN FOR | | | LABORATORY | | | CULTURE | | | SERVICES, | | | | | | CORE | | + + + + + + + + | Specimen | + + | Urine | + + + + + | Narrative | Performed At | + + + | Culture Screen Negative. Culture not indicated. | [facility] | | | LABORATORY | | | SERVICES, CORE | + + + + + + + + | Performing | Address | City/State/Zipcode | Phone Number | | Organization | | | | + + + + + | [facility] | [address] | [place] [address] | | | SERVICES, CORE | [address] | | | + + + + + BRYANNA WALSH ONLY (01/04/2019 8:36 PM PDT) + + + + + + | Component | Value | Ref Range | Performed | Pathologist | | | | | At | Signature | + + + + + + | COLOR(UR) | Yellow | | [facility] | | | | | | LABORATORY | | | | | | MAGGY, | | | | | | CORE [...] + + + + | PH(UR) | 5.0 | 5.0 - 8.0 | [facility] | [...] + + + + | LEUKOCYTE | Negative | Negative | [facility] | | | ESTERASE | | | LABORATORY | | | | | | SERVICES, | | | | | | CORE | | + + + + + + | SPECIFIC | 1.024Comment: Specific | 1.005 - 1.030 | [facility] | | | GRAVITY | [place] performed by | | LABORATORY | | [...] + + + + + | [facility] | [address] | [place] [address] | | | SERVICES, CORE | [address] | | | + + + + + documented in this encounter Visit Diagnoses + + | Diagnosis | + + | Flank pain - Primary Abdominal pain, unspecified site | + + documented in this encounter Administered Medications + +--------+ +--------+------+------+ | Medication Order | MAR | Action | Dose | Rate | Site | | | Action | Date | | | | + +--------+ +--------+------+------+ | acetaminophen (TYLENOL) tablet | Given | 01/05/20 | 650 mg | | | | 650 mg 650 mg, oral, ONCE, 1 | | 19 9:30 | | | | | dose, 01/04/19 at 2200 | | PM PDT | | | | + +--------+ +--------+------+------+ +---+---+ | | | +---+---+ documented in this encounter"
--- OUTSIDE RECORDS SUMMARY | ~2019-11-17 | XMS | Encounter Summary ---
Demographics + + + | Address | [address] | | | [place] [address] | + + + | Home Phone | | + + + | Preferred Language | Unknown | + + + | Marital Status | Single | + + + | Judaism Affiliation | NRP | + + + | Race | White | + + + | Ethnic Group | Not or | + + + Author + + + | Author | [facility] | + + + | Organization | [facility] | + + + | Address | Unknown | + + + | Phone | Unavailable | + + + Support + + +---------+ + | Name | Relationship | Address | Phone | + + +---------+ + | Citlali Montes De Oca | ECON | Unknown | | + + +---------+ + Care Team Providers + +------+ + | Care Tobacco Conditioner Name | Role | Phone | + [...] | | great toe of | [place] [address] | Mona | | | | | left foot | [address] | Orthopedic | | | | | PLEASE EVAL | [facility] [address] | | | | | AND TREAT | [place], | [address] | | | | | Procedures | [place] | [address] | | | | | CONSULT TO | [address] | [facility] | | | | | PODIATRY | Phone: | [phone] Phone: | | | | | | [phone] | [phone] | | | | | | Fax: | Fax: | | | | | | [phone] | [phone] | +--------+--------+ + + + + Reason for Visit + + + | Reason | Comments | + + + | Referral Needed | | + + + Encounter Details +--------+---------+ + + + | Date | Type | Department | Care Team | Description | +--------+---------+ + + + | 02/27/ | Office | [facility] | Saumya Mohamud, | Bunion of great toe | | 2018 | Visit | at [place] [address] | [place] [address] [address] | of left foot | | | | [address] | [address] | (Primary Dx); | | | | [address] [place], [place] | [place], [place] | Tetanus, diphtheria, | | | | [address] | [address] | and acellular | | | | [phone] | [phone] | pertussis (Tdap) | | | | [...] encounter Progress Notes Saumya Mohamud PA-C - 02/27/2018 8:05 AM PDT SUBJECTIVE: Chief complaint: Referral Needed Misty Watkins is a 52 y.o. nonsmoker who presents with chronic left bunion pain x years, a nd need for bone density screening 1. Left bunion Had bunion surgery on right foot a couple years ago at [facility] which was very successful and is now [...]
--- OUTSIDE RECORDS SUMMARY | ~2019-11-17 | XMS | Encounter Summary ---
Demographics + + + | Address | [address] | | | [place] [address] | + + + | Home Phone | | + + + | Preferred Language | Unknown | + + + | Marital Status | Single | + + + | Yazidi Affiliation | NRP | + + + [...] Team Providers + +------+ + | Care Boat Loader Helper Name | Role | Phone | [...] Contraception | | 2018 | | at [place] [address] | [place] [address] [address] | | | | | [address] | [facility] | | | | | [place], [place] | [place], [place] | | | | | [address] | [address] | | | | | [phone] | [phone] | | | | | | | [...]
--- OUTSIDE RECORDS SUMMARY | ~2019-11-17 | XMS | Encounter Summary ---
Demographics + + + | Address | [address] | | | [place] [address] | + + + | Home Phone | | + + + | Preferred Language | Unknown | + + + | Marital Status | Single | + + + | Rastafari Affiliation | NRP | + + + [...] Team Providers + +------+ + | Care Magazine Filler Name | Role | Phone | + [...] test | | 2018 | | at [place] [address] | [place]C [id number] | results (foot xray) | | | | [address] | [address] | | | | | [place], [place] | [place], [place] | | | | | [address] | [address] | | | | | [phone] | [phone] | | | | | | | [...]
--- OUTSIDE RECORDS SUMMARY | ~2019-11-17 | XMS | Encounter Summary ---
Demographics + + + | Address | [address] | | | [place] [address] | + + + | Home Phone | | + + + | Preferred Language | Unknown | + + + | Marital Status | Single | + + + | Yarsani Affiliation | NRP | + + + [...] Team Providers + +------+ + | Care Sock Folder Name | Role | Phone | + [...] + + | 02/08/ | Office | [facility] | Rickey, | Acute right flank | | 2019 | Visit | at [place] [address] | Saud Loja PA-C | pain (Primary Dx); | | | | [address] | [address] [address] | Primary | | | | [place], [place] | [address] [address] | osteoarthritis of | | | | [address] | [place], [place] | both shoulders; | | | | [phone] | [address] | Primary | | | | | [phone] | osteoarthritis of | | | | [...] worsen or fail to improve, for [facility] follow up.. 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 Jayda MARTINI Student imson, [place] [...] + + | [facility] | [address] | [place], [place] | [phone] | | [facility] | Road | [id number] | | + + + + + documented in this encounter Visit Diagnoses + + | Diagnosis | + + | Acute right flank pain - Primary Abdominal pain, unspecified site | + + | Primary osteoarthritis of both shoulders | + + | Primary osteoarthritis of both hands | + + documented in this encounter"
--- OUTSIDE RECORDS SUMMARY | ~2019-11-17 | XMS | Encounter Summary ---
Demographics + + + | Address | [address] | | | [place] [address] | + + + | Home Phone | | + + + | Preferred Language | Unknown | + + + | Marital Status | Single | + + + | Rastafarian Affiliation | NRP | + + + | Race | White | + + + | Ethnic Group | Not or | + + + Author + + + | Author | [facility] | + + + | Organization | [facility] | + + + | Address | Unknown | + + + | Phone | Unavailable | + + + Support + + +---------+ + | Name | Relationship | Address | Phone | + + +---------+ + | Citlali Montes De Oca | ECON | Unknown | | + + +---------+ + Care Team Providers + +------+ + | Care Disassembler Name | Role | Phone | + [...] | | 2018 | Visit | at [place] [address] | Edilma Feliz MD | (Primary Dx); | | | | [address] | [address] | Screening for | | | | [place], [place] | [address] | malignant neoplasm | | | | [address] | [place], [place] | of colon; Elevated | | | | [phone] | [address] | blood-pressure | | | | | [phone] | reading without | | | | [...] | | | | | modified by [place] | | | | | | [facility]. | | | | + + [...] + | WEST - AIRPORT - | [address] | [place] [address] | | | [place] | | | | + + + [...] + + | BHARTI CORNELL | [address] | [place] [address] | | | SERVICES, CORE | PARK [...]
--- OUTSIDE RECORDS SUMMARY | ~2019-11-17 | XMS | Encounter Summary ---
Demographics + + + | Address | [address] | | | [place] [address] | + + + | Home Phone | | + + + | Preferred Language | Unknown | + + + | Marital Status | Single | + + + | Sabianism Affiliation | NRP | + + + | Race | White | + + + | Ethnic Group | Not or | + + + Author + + + | Author | [facility] | + + + | Organization | [facility] | + + + | Address | Unknown | + + + | Phone | Unavailable | + + + Support + + +---------+ + | Name | Relationship | Address | Phone | + + +---------+ + | Citlali Montes De Oca | ECON | Unknown | | + + +---------+ + Care Team Providers + +------+ + | Care Layout Man Name | Role | Phone | + [...] for | | 2018 | Visit | [facility] [address] | | osteoporosis | | | | e [place] for | | (Primary Dx); | | | | Health and Healing | | Depo-Provera | | | | [place] | | contraceptive status | | | | floor [place], [place] | | | | | | [address] | | | | | | [phone] | | | +--------+---------+ + + + [...] Interp retation report will be scanned into [employer] and attached to the Images. Thank you. [...]
--- OUTSIDE RECORDS SUMMARY | ~2019-11-17 | XMS | Encounter Summary ---
Demographics + + + | Address | [address] | | | [place] [address] | + + + | Home Phone | | + + + | Preferred Language | Unknown | + + + | Marital Status | Single | + + + | Restorationist Affiliation | NRP | + + + | Race | White | + + + | Ethnic Group | Not or | + + + Author + + + | Author | [facility] | + + + | Organization | [facility] | + + + | Address | Unknown | + + + | Phone | Unavailable | + + + Support + + +---------+ + | Name | Relationship | Address | Phone | + + +---------+ + | Citlali Montes DeO ca | ECON | Unknown | | + + +---------+ + Care Team Providers + +------+ + | Care Power Lineman Name | Role | Phone | + [...] test | | 2019 | | at [place] [address] | PA-C [address] | results | | | | [address] | [address] | | | | | Dylan Sarabia [place], [place] | [place], [place] | | | | | [address] | [address] | | | | | [phone] | [phone] | | | | | | | [...]
--- OUTSIDE RECORDS SUMMARY | ~2019-11-17 | XMS | Encounter Summary ---
Demographics + + + | Address | [address] | | | [place] [address] | + + + | Home Phone [...] Author + + + | Author | [facility] | + + + | Organization | [facility] | + + + | Address | Unknown | + + + | Phone | Unavailable | + + + Support + + +---------+ + | Name | Relationship | Address | Phone | + + +---------+ + | Citlali Montes De Oca | ECON | Unknown | | + + +---------+ + Care Team Providers + +------+ + | Care General Store Manager Name | Role | Phone | + +------+ + | Saumya Mohamud PA-C | PCP | | + +------+ + Reason for Visit + + + | Reason | Comments | + + + | Lab Results | | + + + Encounter Details +--------+ + + + + | Date | Type | Department | Care Team | Description | +--------+ + + + + | 02/23/ | Telephone | [facility] Primary Care | Reece | Lab Results | | 2018 | | at [place] [address] | Edilma Feliz MD | | | | | [address] | [address] | | | | | [place], [place] | [facility] | | | | | [address] | [place], [place] | | | | | [phone] | [address] | | | | | | [phone] | | | | | | | [...]
--- OUTSIDE RECORDS SUMMARY | ~2019-11-17 | XMS | Encounter Summary ---
Demographics + + + | Address | [address] | | | [place] [address] | + + + | Home Phone [...] Author + + + | Author | [facility] | + + + | Organization | [facility] | + + + | Address | Unknown | + + + | Phone | Unavailable | + + + Support + + +---------+ + | Name | Relationship | Address | Phone | + + +---------+ + | Citlali Montes De Oca | ECON | Unknown | | + + +---------+ + Care Team Providers + +------+ + | Care Guide Dog Trainer Name | Role | Phone | + +------+ + | Saumya Mohamud PA-C | PCP | | + +------+ + Encounter Details +--------+ + + + + | Date | Type | Department | Care Team | Description | +--------+ + + + + | 03/16/ | Lab | Dermatopathology | Said Zack Valadez, | | | 2018 | Requisition | [address] | [address] | | | | | Mailcode: [id number] | [address] [facility] | | | | | [facility] | Phillip [place], [place] | | | | | and Healing, | [address] | | | | | [facility] | [phone] | | | | | Floor [place], [place] | | | | | | [address] | | | | | | [phone] | | | +--------+ + + + [...] | + +--------+ + + + | DERM PATH SLIDE PREP | Routin | 03/16/2018 | | Results for this | | | e | | | procedure are in the | | | | | | results section. | + +--------+ + + + documented in this encounter Results DERM PATH SLIDE PREP (03/16/2018) + + + + + + | Component | Value | Ref Range | Performed | Pathologist | | | | | At | Signature | + + + + + + | Gross | Gross examination | | [facility] | | | Description | performed at [facility] | | DERMATOPATH | | | | Dermatopathology | | OLOGY | | | | Laboratory, [address] [facility] | | | | | | [address], [place], [place] | | | | | | [address].Bullet Swaging Machine Adjuster: | | | | | | Lan Kent MD. LINETTE | | | | | | #[id number] | | | | + + + + + + + + | Specimen | + + | Tissue | + + + + + + + | Performing | Address | City/State/Zipcode | Phone Number | | Organization | | | | + + + + + | [facility] | Mailcode CH5D [address] | [place] [address] | | | DERMATOPATHOLOGY | [address] | | | + + + + + documented in this encounter Visit Diagnoses Not on filedocumented in this encounter"
--- OUTSIDE RECORDS SUMMARY | ~2019-11-17 | XMS | Encounter Summary ---
Demographics + + + | Address | [address] | | | [place] [address] | + + + | Home Phone [...] Author + + + | Author | [facility] | + + + | Organization | [facility] | + + + | Address | Unknown | + + + | Phone | Unavailable | + + + Support + + +---------+ + | Name | Relationship | Address | Phone | + + +---------+ + | Citlali Montes De Oca | ECON | Unknown | | + + +---------+ + Care Team Providers + +------+ + | Care Senior Business Manager Name | Role | Phone | [...] + + | 12/02/ | Office | [facility] Primary Care | Saumya Mohamud Tray, | Chronic pain of both | | 2018 | Visit | at [place] [address] | PA-C [address] | shoulders (Primary | | | | [address] | [address] | Dx); Chronic hand | | | | [place], [place] | [place], [place] | pain, unspecified | | | | [address] | [address] | laterality; | | | | [phone] | [phone] | Recurrent cold sores | | | [...] to do her jobs - works at [employer], 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 STRENGTH: 5/5 extension, flexion fingers; 5/5 crop picker strength NEURO: Sensation intact in median, ulnar, [...]
--- OUTSIDE RECORDS SUMMARY | ~2019-11-17 | XMS | Clinical Summary ---
Demographics + + + | Address | [address] | | | [place] [address] | + + + | Home Phone | | + + + | Preferred Language | Unknown | + + + | Marital Status | Single | + + + | Buddhist Affiliation | NRP | + + + [...] Team Providers + +------+ + | Care Hydraulic Operator Name | Role | Phone | + +------+ + | Saumya Mohamud PA-C | PCP | | + +------+ + Source Comments BHARTI is fully live on both [facility] Ambulatory and [facility] InPatient.[facility] Allergies No Known Allergies Medications + + [...] Following with [facility] | | [phone]; recommend surgery | + + + + [...] | | | + +--------+ +--------+-------+---------+--------+ | CREDIT UNDERWRITER MEDICAID | CREDIT UNDERWRITER | xxxxxxxx | Effect | | | [...] Person | Self | [birth year] | [address] # | | | al/Fam | | 1965 | [phone] | [place] | | | genoveva | | | 2 (Home) | [address] | + +--------+ +--------+ + +"
--- OUTSIDE RECORDS SUMMARY | ~2019-11-17 | XMS | Encounter Summary ---
Demographics + + + | Address | [address] | | | [place] [address] | + + + | Home Phone [...] Author + + + | Author | [facility] | + + + | Organization | [facility] | + + + | Address | Unknown | + + + | Phone | Unavailable | + + + Support + + +---------+ + | Name | Relationship | Address | Phone | + + +---------+ + | Citlali Montes De Oca | ECON | Unknown | | + + +---------+ + Care Team Providers + +------+ + | Care Nailer Operator Name | Role | Phone | [...] + + | 12/21/ | Emergency | [facility] Emergency | Lisa Bowman MD | | | 2019 | | Department [address] | [address] [facility] | | | | | [address] | [address] | | | | | [facility] | [place], [place] | | | | | [place], [place] | [address] | | | | | [address] | [phone] | | | | | [phone] | | | +--------+ + + + [...] attachments cannot be sent through Care Everywhere.Pyelonephritis (Maldivian)documented in this encounter Medications at Time of [...] | + + + + + | [facility] LABORATORY | [address] [facility] | [place] [address] | | | SERVICES, [facility] | [address] | | | + [...] | | | LABORATORY | | | MALAWIAN | | | SERVICES, | | | [...] MDRD equation recommended by the National | [facility] | | Kidney Disease Education Program. Estimated [...] | + + + + + | [facility] | [address] | [place] [address] | | | SERVICES, CORE | PARK [...] [facility] | [address] | [place] [address] | | | SERVICES, SAE | [address] [...] | [facility] | | | GRAVITY | [place] performed by | | LABORATORY | | [...] [facility] | [address] | [place] [address] | | | SERVICES, SAE | [address] [...]
--- OUTSIDE RECORDS SUMMARY | ~2019-11-17 | XMS | Encounter Summary ---
Demographics + + + | Address | [address] | | | [place] [address] | + + + | Home Phone [...] + + + | Author | [facility] | + + + | Organization | [facility] | + + + | Address | Unknown | + + + | Phone | Unavailable | + + + Support + + +---------+ + | Name | Relationship | Address | Phone | + + +---------+ + | Citlali Montes De Oca | ECON | Unknown | | + + +---------+ + Care Team Providers + +------+ + | Care Quilt Sewer Name | Role | Phone | + [...] [address] | [address] | | | | | Mailcode: CH16D | [address] [facility] | | | | | [facility] | [address] [place], [place] | | | | | and Healing, | [address] | | | | | [facility] | [phone] | | | | | Floor [place], [place] | | | | | | [address] | | | | | | [phone] | | | +--------+ + + + [...] | Gross | Gross examination | | [facility] | | | Description | performed at [facility] | | DERMATOPATH | | | | Dermatopathology | | OLOGY | | | | Laboratory, [address] [facility] | | | | | | [address], [place], [place] | | | | | | [address].Pl Sql Developer: | | | | | | Lan Kent MD. LINETTE | | | | | | #[id number] | | | | + + + + + + + + | Specimen | + + | Tissue | + + + + + + + | Performing | Address | City/State/Zipcode | Phone Number | | Organization | | | | + + + + + | [facility] | Mailcode CH5D [address] | [place] [address] | | | DERMATOPATHOLOGY | [address] | | | + + + + + documented in this encounter Visit Diagnoses Not on filedocumented in this encounter"
--- OUTSIDE RECORDS SUMMARY | ~2019-11-17 | XMS | Encounter Summary ---
Demographics + + + | Address | [address] | | | [place] [address] | + + + | Home Phone [...] + + + | Author | [facility] | + + + | Organization | [facility] | + + + | Address | Unknown | + + + | Phone | Unavailable | + + + Support + + +---------+ + | Name | Relationship | Address | Phone | + + +---------+ + | Citlali Montes De Oca | ECON | Unknown | | + + +---------+ + Care Team Providers + +------+ + | Care Dye Beck Reel Operator Name | Role | Phone | + +------+ + | Saumya Mohamud PA-C | PCP | | + +------+ + Encounter Details +--------+ + + + + | Date | Type | Department | Care Team | Description | +--------+ + + + + | 12/02/ | Hospital | Radiology/Imaging | Saumya Mohamud, | | | 2018 | Encounter | at [place] [address] | [place] [address] | | | | [address] | [address] | | | | | [address] [place], | [place], [place] | | | | | [place] [address] | [address] | | | | | [phone] | | | | | | | [...] + +--------+ + + + | X-RAY SHOULDER 2 | Routin | 12/02/2018 | Chronic pain of | Results for this | | VIEW BILATERAL | e | 7:28 PM | both shoulders | procedure are in the | | | | PDT | | results section. | + +--------+ + + + documented in this encounter Results X-RAY SHOULDER 2 VIEW [...] now presented. | | | |Final signature: Oidlon Becerra MD 12/03/2018 8:40 AM | |Preliminary: [...] + | Chronic pain of both shoulders Pain in joint, shoulder region | + + documented in this encounter"
--- OUTSIDE RECORDS SUMMARY | ~2019-11-17 | XMS | Encounter Summary ---
Demographics + + + | Address | [address] | | | [place] [address] | + + + | Home Phone | | + + + | Preferred Language | Unknown | + + + | Marital Status | Single | + + + | Pentecostalism Affiliation | NRP | + + + | Race | White | + + + | Ethnic Group | Not or | + + + Author + + + | Author | [facility] | + + + | Organization | [facility] | + + + | Address | Unknown | + + + | Phone | Unavailable | + + + Support + + +---------+ + | Name | Relationship | Address | Phone | + + +---------+ + | Citlali Montes De Oca | ECON | Unknown | | + + +---------+ + Care Team Providers + +------+ + | Care Laborer Operator Name | Role | Phone | + +------+ + | Saumya Mohamud PA-C | PCP | | + +------+ + Encounter Details +--------+ + + + + | Date | Type | Department | Care Team | Description | +--------+ + + + + | 02/23/ | Hospital | Radiology/Imaging | Saumya Mohamud, | | | 2017 | Encounter | at [place] [address] | [place] [address] | | | | [address] | [address] | | | | | [address] [place], | [place], [place] | | | | | [place] [address] | [address] | | | | | [phone] | [phone] | | | | | | | [...] + + documented in this encounter Results [facility] MA DIGITAL MAMMO SCREEN BILAT W/CAD [...] 2018 - Accession #: | | | [id number] Bilateral CC and MLO view(s) were taken. [...] mammography on the | | | dedicated Aristotle Circle System with R2 CAD. Performed at [facility] | | | [facility]. ASSESSMENT: Negative - Category 1 | | [...] 23, 2018 - Accession #: | | [id number] CC and MLO view(s) were taken.Prior study [...] | | digital mammography on the dedicated Aristotle Circle System with R2 CAD. Performed at [facility].ASSESSMENT: Negative - Category 1RECOMMENDATION:Routine | | [...] Hologic System with R2 CAD. Performed at [place] | [facility]. | | | |ASSESSMENT: Negative - Category [...]
--- OUTSIDE RECORDS SUMMARY | ~2019-11-17 | XMS | Encounter Summary ---
Demographics + + + | Address | [address] | | | [place] [address] | + + + | Home Phone | | + + + | Preferred Language | Unknown | + + + | Marital Status | Single | + + + | Methodist Affiliation | NRP | + + + [...] Team Providers + +------+ + | Care Stretcher Leveler Operator Helper Name | Role | Phone | [...] | | | is of both | [facility] | [address] | | | | | shoulders, | Rd | [address] | | | | | unspecified | [place], [place] | [address] | | | | | osteoarthrit | [address] | Phone: | | | | | is type | Phone: | [phone] | | | | | Strain of | [phone] | Fax: | | | | | other | Fax: | [phone] | | | | | muscles, | [phone] | | | | | | fascia [...] + + | 05/20/ | Office | [facility] Primary Care | Lisa Gutiérrez MD | Strain of right | | 2019 | Visit | at [place] [address] | [address] | trapezius muscle, | | | | [address] | [address] [place], | initial encounter | | | | [place], [place] | [place] [address] | (Primary Dx); | | | | [address] | [phone] | Arthritis of | | | | [phone] | | glenohumeral joint; | | | [...] might be different fr om the original. [facility] FAMILY MEDICINE [facility] [place] SUBJECTIVE CC: Back pain HPI: #Back pain [...] file Gets together: Not on file Attends episcopal service: Not on file Active member of [...] 1 month (around 06/20/2019). Lisa Gutiérrez MD [facility] Family Medicine, PGY-3 Pager [phone] signed by Lisa Gutiérrez MD at 05/20/2019 [...]
--- OUTSIDE RECORDS SUMMARY | ~2019-11-17 | XMS | Encounter Summary ---
Demographics + + + | Address | [address] | | | [place] [address] | + + + | Home Phone [...] + + + | Author | [facility] | + + + | Organization | [facility] | + + + | [...] Providers + +------+ + | Care Marine Service Manager Name | Role | Phone | [...] + + | 02/23/ | Telephone | [facility] Primary Care | Reece | Lab Results | | 2018 | | at [place] [address] | Edilam Feliz MD | | | | | [address] | [address] | | | | | [place], [place] | [facility] | | | | | [address] | [place], [place] | | | | | [phone] | [address] | | | | | | [phone] | | | | | | | [...]
--- OUTSIDE RECORDS SUMMARY | ~2019-11-17 | XMS | Encounter Summary ---
Demographics + + + | Address | [address] | | | [place] [address] | + + + | Home Phone [...] Team Providers + +------+ + | Care Conveyor Installer Name | Role | Phone | + +------+ + | Saumya Mohamud PA-C | | + +------+ + Encounter Details +--------+--------+ + + + | Date | Type | Department | Care Team | Description | +--------+--------+ + + + | 01/05/ | Travel | | | | | [...]
--- OUTSIDE RECORDS SUMMARY | ~2019-11-17 | XMS | Encounter Summary ---
Demographics + + + | Address | [address] | | | [place] [address] | + + + | Home Phone | | + + + | Preferred Language | Unknown | + + + | Marital Status | Single | + + + | Caodaism Affiliation | NRP | + + + [...] Providers + +------+ + | Care Snow Maker Name | Role | Phone | [...]
--- OUTSIDE RECORDS SUMMARY | ~2019-11-17 | XMS | Encounter Summary ---
Demographics + + + | Address | [address] | | | [place] [address] | + + + | Home Phone [...] Author + + + | Author | [facility] | + + + | Organization | [facility] | + + + | Address | Unknown | + + + | Phone | Unavailable | + + + Support + + +---------+ + | Name | Relationship | Address | Phone | + + +---------+ + | Citlali Montes De Oca | ECON | Unknown | | + + +---------+ + Care Team Providers + +------+ + | Care Civil Structural Designer Name | Role | Phone | + +------+ + | Saumya Mohamud PA-C | PCP | | + +------+ + Encounter Details +--------+ + + + + | Date | Type | Department | Care Team | Description | +--------+ + + + + | 05/07/ | Abstract | [facility] Primary Care | Saumya Mohamud, | | | 2018 | | at [place] [address] | [place] [address] | | | | [address] | [address] | | | | | Dylan Sar[place], [place] | [place], [place] | | | | | [address] | [address] | | | | | | | [...] + + + + + + | AUTO BODY REPAIRER FIBERGLASS | negative | | WEST - | [...] Performed At | + + + | AUTO BODY REPAIRER [facility] CYTOLOGY 2016 [facility] Component | [place] - | | Name Value Ref Range Report, pathology | AIRPORT - | | Case #: [id number] | [place] | | Collected: 2016 HPV Result: NOT [...] on 04/02/2016 | | | Cytotech Code(s): B959028 Cytotech Code(s): H383401 Treatment | | | History: BCP: Depo-Provera Specimen(s) Received A:Cervical LBP - | | | SurePath - Cervical Patient Name: KATHY LEUNG [facility]. Rec | | | #: [id number] /Age: 8 1965 (Age: 51) Sex: F | | | Facility: [facility] Medical Office Location: | | | Provider: REDDY PAUL NP [facility] [address] | | [address], [place] [address] Tel: [phone] | | | [phone] Collected: | | | 2016 Case #: [id number] | | | Gynecologic Cytology | | [...] | | | Professional services provided by [facility] | | | Department of Pathology at these locations: [facility]: [address] | | | Laboratory, [address] [place] [address] | | | CLIA [id number]; Lan Pedromo, PhD - Director SMC: | | | [facility], [address], | | | [place] [address] CLIA [id number]; Yesica Archuleta MD - Director INT: | | | [facility], [address], | | | [place] [address] CLIA [id number]; Lalitha Silvestre, - Director | | | [facility]: [facility], [address] [address], | | | [place] [address] CLIA [id number]; Susie Arnold MD - | | | [...] + | WEST - AIRPORT - | [address] | [place] [address] | | | [place] | | | | + + + + + PAP W/HR HPV (CO-TESTING) (07/01/2014) + + + + + + | Component | Value | Ref Range | Performed | Pathologist | | | | | At | Signature | + + + + + + | AUTO BODY REPAIRER [facility] | negative | | WEST - | | | CYTOLOGY | | | AIRPORT - | | | | | | [place] | | + + + + + + | HPV | POSITIVE for high-risk | Negative | WEST - | | | | HPV. (A) | | AIRPORT - | | | | | | [place] | | + + + + + + + + | Specimen | + + | Tissue - Cervix | | uteri structure | | (body structure) | + + + + + | Narrative | Performed At | + + + | AUTO BODY REPAIRER [facility] CYTOLOGY 07/01/2014 [facility] Component | WEST - | | Name Value Ref Range Report, pathology | AIRPORT - | | Case #: [id number] | [place] | | Collected: 07/01/2014 HPV Result: DETECTED [...] Patient | | | Name: KATHY LEUNG [facility]. Rec | | | #: [id number] /Age: 8 1965 (Age: 49) Sex: F | | | Facility: [facility] Medical Office Location: [facility] | | | Provider: Ambreen Sánchez MD [facility] [address] [place] [address] [address] | | | [address], [place] [address] Tel: [phone] | | | [phone] Collected: | | | 07/01/2014 Case #: [id number] | | | Gynecologic Cytology | | [...] Professional services provided by | | | [facility] Department of Pathology at these locations: | | | [facility]: [facility], [address], | | | [place] [address] CLIA [id number]; Sharan Gardner, PhD [facility]: | | | [facility], [address], | | | [place] [address] CLIA [id number]; Yesica Archuleta MD INT: [facility] | | | Medical Office, [address] [place] [address] | | | CLIA [id number]; Yumiko Byrd MD [facility]: [facility] | | | Center, [address] [facility] [place] [address] | | | CLIA [id number]; Yesica Herrera MD Director (A) SPECIMEN | [...] + | WEST - AIRPORT - | [address] | [place] [address] | | | [facility] | | | | + + + + + documented in this encounter Visit Diagnoses Not on filedocumented in this encounter"
--- OUTSIDE RECORDS SUMMARY | ~2019-11-17 | XMS | Encounter Summary ---
Demographics + + + | Address | [address] | | | [place] [address] | + + + | Home Phone | | + + + | Preferred Language | Unknown | + + + | Marital Status | Single | + + + | Hindu Affiliation | NRP | + + + [...] Team Providers + +------+ + | Care Sweat Band Sewer Name | Role | Phone | + +------+ + | Saumya Mohamud PA-C | PCP | | + +------+ + Encounter Details +--------+ + + + + | Date | Type | Department | Care Team | Description | +--------+ + + + + | 02/26/ | Automotive Vehicle Inspector | [facility] Primary Care | Saumya Mohamud, | Screening for colon | | 2018 | | at [place] [address] | [place] [address] | cancer (Primary Dx) | | | | [address] | [address] | | | | | Dylan C [place], [place] | [place], [place] | | | | | [address] | [address] | | | | | | | [...] + | WEST - AIRPORT - | [address] | [place] [address] | | | [place] | | | | + + + + + documented in this encounter Visit Diagnoses + + | Diagnosis | + + | Screening for colon cancer - Primary Special screening for malignant neoplasms, colon | + + documented in this encounter"
--- OUTSIDE RECORDS SUMMARY | ~2019-11-17 | XMS | Encounter Summary ---
Demographics + + + | Address | [address] | | | [place] [address] | + + + | Home Phone | | + + + | Preferred Language | Unknown | + + + | Marital Status | Single | + + + | Sabianist Affiliation | NRP | + + + [...] Team Providers + +------+ + | Care Pile Driver Engineer Name | Role | Phone | + +------+ + | Saumya Mohamud PA-C | PCP | | + +------+ + Reason for Visit + + + | Reason | Comments | + + + | Insertion of IUD | | + + + Encounter Details +--------+---------+ + + + | Date | Type | Department | Care Team | Description | +--------+---------+ + + + | 03/03/ | Office | [facility] | Saumya Mohamud, | Encounter for IUD | | 2018 | Visit | at [place] [address] | [place] [address] | insertion (Primary | | | | [address] | [address] | Dx); Recurrent cold | | | | Dylan [place], [place] | [place], [place] | sores | | | | [address] | [address] | | | | | [phone] | [phone] | | | | | | | [...] + + + | Blood Pressure | 132/72 | 03/03/2018 4:32 PM | | | | | PDT | | + + + + + | Pulse | 88 | 03/03/2018 4:32 PM | | | | | PDT | | + + + + + | Temperature | 36.6 C (97.8 F) | 03/03/2018 4:32 PM | | | | | PDT | | + + + + + | Respiratory Rate | 14 | 03/03/2018 4:32 PM | | | | | PDT [...] in this encounter Patient Instructions Patient Instructions Saumya Mohamud PA-C - 03/03/2018 5:05 PM PDTFormatting of this not e might be different from the original. Return in about 4 weeks (around 03/31/2018), or if symptoms worsen or fail to improve, for po st IUD insertion. Intrauterine Device (IUD) Insertion: Care Instructions Your Care Instructions The intrauterine device (IUD) is a very effective method of control. It is a small, p lastic, T-shaped device that contains copper or hormones. The doctor inserts the IUD into yo ur uterus. A plastic string tied to the end of the IUD hangs down through the cervix into th e vagina. There are two types of IUDs. The copper IUD is effective for up to 10 years. The hormonal I UD is effective for either 3 years or 5 years, depending on which IUD is used. The hormonal IUD also reduces menstrual bleeding and cramping. Both types of IUD damage or kill the man's sperm. This means that the woman's egg does not join with the sperm. IUDs also change the l ining of the uterus so that the egg does not lodge there. The IUD is most likely to work well for women who have been before. Some women who have never been have more trouble keeping the IUD in the uterus. They also may hav e more pain and cramping after insertion. Follow-up care is a araujo part of your treatment and safety. Be sure to make and go to all ap pointments, and call your doctor if you are having problems. It's also a good idea to know y our test results and keep a list of the medicines you take. How can you care for yourself at home? You may experience some mild cramping and light bleeding (spotting) for 1 or 2 days. Use a hot water bottle or a heating pad set on low on your belly for pain. Take an rayl-yau-umohtmp pain medicine, such as acetaminophen (Tylenol), ibuprofen (Advi l, Motrin), and naproxen (Aleve) if needed. Read and follow all instructions on the label. Do not take two or more pain medicines at the same time unless the doctor told you to. M any pain medicines have acetaminophen, which is Tylenol. Too much acetaminophen (Tylenol) ca n be harmful. Check the string of your IUD after every period. To do this, insert a finger into your v agina and feel for the cervix, which is at the top of the vagina and feels harder than the r est of your vagina. You should be able to feel the thin, plastic string coming out of the op ening of your cervix. If you cannot feel the string, use another form of control and m heather an appointment with your doctor to have the string checked. If the IUD comes out, save it and call your doctor. Be sure to use another form of control while the IUD is out. Use latex condoms to protect against sexually transmitted infections (STIs), such as michelle orrhea and chlamydia. An IUD does not protect you from STIs. Having one sex partner (who macario s not have STIs and does not have sex with anyone else) is a good way to avoid STIs. When should you call for help? Call 911 anytime you think you may need emergency care. For example, call if: You passed out (lost consciousness). You have sudden, severe pain in your belly or pelvis. Call your doctor now or seek immediate medical care if: You have new belly or pelvic pain. You have severe vaginal bleeding. This means that you are soaking through your usual pads or tampons each hour for 2 or more hours. You are dizzy or lightheaded, or you feel like you may faint. You have a fever and pelvic pain or vaginal discharge. You have pelvic pain that is getting worse. Watch closely for changes in your health, and be sure to contact your doctor if: You cannot feel the string, or the IUD comes out. You feel sick to your stomach, or you vomit. You think you may be . documented in this encounter Progress Notes Saumya Mohamud PA-C - 03/03/2018 4:05 PM PDT IUD Insertion Misty Watkins OB History No data available 52 y.o. patient here for Mirena IUD insertion. No LMP recorded. Patient is perimenopausal.. Current contraception: condoms; last depo was at least a year ago Has had some bleeding/spotting, 1 mo ago, otherwise no periods/bleeding/spotting in years ( while on depo), nor since stopping depo Really doesn't want to be but was advised to switch from depo due to concerns abou t long-term use of depo with bone health History of PID?: no. No iodine allergy no Needs refill on acyclovir medication; takes for cold sores Reviewed Mirena IUD consent, expectations for insertion and afterward. Consent signed. Re viewed expectation for abnormal uterine bleeding pattern with IUD, possible infection, expul joseph, perforation, failure rate. All questions answered. Filed Vitals: 03/03/2018 4:32 PM BP: 132/72 Pulse: 88 Temp: 36.6 C (97.8 F) TempSrc: Oral Resp: 14 PainSc: 0 - Zero Pelvic exam: normal vagina and vulva, normal cervix without lesions, polyps or tenderness. Urine negative today. ASSESSMENT & PLAN: Misty was seen today for insertion of iud. Diagnoses and all orders for this visit: Encounter for IUD insertion - levonorgestrel (MIRENA) 20 mcg/24 hr (5 years) intrauterine device 1 each; 1 each by intrauterine route once. - HCG URINE, POC - ibuprofen (MOTRIN) tablet 800 mg; Take 1 tablet by mouth once. - HCG URINE, POC - HCG URINE, POC Recurrent cold sores - acyclovir 400 mg oral tablet; Take 1 tablet by mouth five times daily. For 5 days at the first sign of an outbreak PROCEDURE TIME OUT: Time Out has been performed to include verification of correct patient, correct site, and a greement on procedure to be performed Procedure Speculum was easily inserted. The cervix was cleaned with Betadine. Tenaculum was placed an teriorly. The uterus was sounded to 6 cm. The uterine length sounds to an acceptable length for proceeding with IUD insertion. (Mirena: 6-10cm, Paraguard: 6-9cm) Mirena IUD inserted into uterus using sterile technique. Strings cut to 2 cm. Bleeding was minimal. Patient tolerated procedure well. The patient was advised to use jace tional protection (condoms) should they engage in vaginal intercourse in the next 7 days. P atient instructed on checking for string. Call with any fever, persistent pain, or heavy bl eeding. Following insertion, the adhesive label from the IUD packaging was applied to the consent f orm, and the consent form was submitted for scanning. Pt tolerated the procedure well and will f/u in 4 wks for string check or has been directed in how to check strings autonomously. A follow up call will be conducted within 4 weeks to assess how the patient is doing with the new device and whether the pt can feel the strings external to the os. IUD type: Mirena IUD Lot Number: [id number] Expiration Date: Aug 2020 Return in about 4 weeks (around 03/31/2018), or if symptoms worsen or fail to improve, for po st IUD insertion. Patient opted for AVS today. documented in this encounter Plan of Treatment Not on filedocumented as of this encounter Procedures + +--------+ + + + | Procedure Name | Priori | Date/Time | Associated Diagnosis | Comments | | | ty | | | | + +--------+ + + + | HCG URINE, POC | Routin | 03/03/2018 | Encounter for IUD | Results for this | | | e | 5:51 PM | insertion | procedure are in the | | | | PDT | | results section. | + +--------+ + + + | HCG URINE, POC | Routin | 03/03/2018 | Encounter for IUD | Results for this | | | e | 5:32 PM | insertion | procedure are in the | | | | PDT | | results section. | + +--------+ + + + | HCG URINE, POC | Routin | 03/03/2018 | Encounter for IUD | Results for this | | | e | 4:37 PM | insertion | procedure are in the | | | | PDT | | results section. | + +--------+ + + + documented in this encounter Results HCG URINE, POC (03/03/2018 5:51 PM PDT) + + + + + + | Component | Value | Ref Range | Performed | Pathologist | | | | | At | Signature | + + + + + + | HCG URINE, | Negative | Negative | [facility] | | | POC | | | [place] | | [...] + + | [facility] | [id number] | [place], [place] | [phone] | | [facility] | Road | [address] | | + + + + + HCG URINE, POC (03/03/2018 5:32 PM PDT) + + + + + + | Component | Value | Ref Range | Performed | Pathologist | | | | | At | Signature | + + + + + + | HCG URINE, | Negative | Negative | [facility] | | | POC | | | [place] | | [...] + + | [facility] | [address] | [place], [place] | [phone] | | [facility] | Road | [address] | | + + + + + HCG URINE, POC (03/03/2018 4:37 PM PDT) + + + + + + | Component | Value | Ref Range | Performed | Pathologist | | | | | At | Signature | + + + + + + | HCG URINE, | Positive | Negative | [facility] | | | POC | | | [place] | | [...] + + + | [facility] | [address] [facility] | [place], [place] | [phone] | | [facility] | Road | [address] | | + + + + + documented in this encounter Visit Diagnoses + + | Diagnosis | + + | Encounter for IUD insertion - Primary Encounter for insertion of intrauterine | | contraceptive device | + + | Recurrent cold sores Herpes simplex without mention of complication | + + documented in this encounter Administered Medications + +--------+ +--------+------+------+ | Medication Order | MAR | Action | Dose | Rate | Site | | | Action | Date | | | | + +--------+ +--------+------+------+ | ibuprofen (MOTRIN) tablet 800 | Given | 03/03/20 | 800 mg | | | | mg 800 mg, oral, ONCE, 1 dose, | | 18 5:06 | | | | | 03/03/18 at 1630 | | PM PDT | | | | + +--------+ +--------+------+------+ +---+---+ | | | +---+---+ + +-------+ +--------+---+---+ | levonorgestrel (MIRENA) 20 | Given | 03/03/20 | 1 each | | | | mcg/24 hr (5 years) intrauterine | | 18 5:10 | | | | | device 1 each 1 each, | | PM PDT | | | | | intrauterine, ONCE, 1 dose, Tue | | | | | | | 03/03/18 at 1645 | | | | | | + +-------+ +--------+---+---+ +---+---+ | | | +---+---+ documented in this encounter"
--- OUTSIDE RECORDS SUMMARY | ~2019-11-17 | XMS | Encounter Summary ---
Demographics + + + | Address | [address] | | | [place] [address] | + + + | Home Phone [...] Team Providers + +------+ + | Care Production Internship Name | Role | Phone | + +------+ + | Saumya Mohamud PA-C | PCP | | + +------+ + Encounter Details +--------+ + + + + | Date | Type | Department | Care Team | Description | +--------+ + + + + | 12/02/ | Hospital | Radiology/Imaging | Saumya Mohamud, | | | 2018 | Encounter | at [place] [address] | [place] [address] | | | | [address] | [address] | | | | | [address] [place], | [place], [place] | | | | | [place] [address] | [address] | | | | | [phone] | | | | | | | [...]
--- OUTSIDE RECORDS SUMMARY | ~2019-11-17 | XMS | Encounter Summary ---
Demographics + + + | Address | [address] | | | [place] [address] | + + + | Home Phone [...] Team Providers + +------+ + | Care Cloth Stretcher Name | Role | Phone | + [...]
--- OUTSIDE RECORDS SUMMARY | ~2019-11-17 | XMS | Encounter Summary ---
Demographics + + + | Address | [address] | | | [place] [address] | + + + | Home Phone [...] Team Providers + +------+ + | Care Supervisor Show Operations Name | Role | Phone | + [...] | | 2018 | Visit | at [place] [address] | [place] [address] | insertion (Primary | | | | [address] | [address] | Dx); Recurrent cold | | | | [place], [place] | [place], [place] | sores | | | | [address] | [address] | | | | | [phone] | [phone] | | | | | | | [...] on your belly for pain. Take an vnrp-whf-ehkjklc pain medicine, such as acetaminophen (Tylenol), ibuprofen [...] bleeding pattern with IUD, possible infection, expul ojseph, perforation, failure rate. All questions answered. Filed [...] os. IUD type: Mirena IUD Lot Number: [id number] Expiration Date: Aug 2020 Return in about [...] + + | [facility] | [address] | [place], [place] | [phone] | | [facility] | Road | [address] | | + + + + + [...] + + | [facility] | [address] [facility] | [place], [place] | [phone] | | [facility] | Road | [address] | | + + + + + [...] + + + | [facility] | [address] | [place], [place] | [phone] | | [facility] | Road | [address] | | + + + + + [...]
--- OUTSIDE RECORDS SUMMARY | ~2019-11-17 | XMS | Encounter Summary ---
Demographics + + + | Address | [address] | | | [place] [address] | + + + | Home Phone [...] Team Providers + +------+ + | Care Hotel Server Name | Role | Phone | + [...]
--- OUTSIDE RECORDS SUMMARY | ~2019-11-17 | XMS | Encounter Summary ---
Demographics + + + | Address | [address] | | | [place] [address] | + + + | Home Phone [...] Author + + + | Author | [facility] | + + + | Organization | [facility] | + + + | Address | Unknown | + + + | Phone | Unavailable | + + + Support + + +---------+ + | Name | Relationship | Address | Phone | + + +---------+ + | Citlali Montes De Oca | ECON | Unknown | | + + +---------+ + Care Team Providers + +------+ + | Care Padder Cushion Name | Role | Phone | + [...] + + | 01/05/ | Emergency | [facility] Emergency | Carissa Sanchez | | | 2019 | | Department [address] MD [address] | | | | | [address] | [address] | | | | | [facility] | [place], [place] | | | | | [place], [place] | [address] | | | | | | [phone] | | | | | [phone] | | | +--------+ + + + [...] | results was communicated to the ED photographic machine operator on 01/05/2019 3:28 AM by | [...] Note | + + | Service Account, [employer] [facility] In Interface - 01/05/2019 9:16 AM [...] was | | communicated to the ED photographic machine operator on 01/05/2019 3:28 AM by Chuck [...] of results was communicated to the ED photographic machine operator on 01/05/2019 3:28 AM by Chuck [...] [address] | [place], [place] | | | [facility] CARE | [facility] | [address] | | | TESTS | | | [...] | + + + + + | [facility] | [address] | [place] [address] | | | SERVICES, CORE | KORI [...] | + + + + + | [facility] | [address] | [place] [address] | | | SERVICES, CORE | [address] | | | + + + [...] | + + + + + | [facility] | [address] | [place] [address] | | | SERVICES, CORE | KORI [...] | [address] | [place] [address] | | | SERVICES, | [address] [...] | | | LABORATORY | | | [place] | | | SERVICES, | | | [...] MDRD equation recommended by the National | [facility] | | Kidney Disease Education [...] [facility] | [address] | [place] [address] | | | [facility] [place] | [address] [...] | + + + + + | Dr [facility] | [address] | [place] [address] | | | SERVICES, CORE | [address] [...] LABORATORY | [address] | [place] [address] | | | SERVICES, CORE | P[address] [...] | [facility] | | | GRAVITY | [place] performed by | | LABORATORY | | [...] | [address] | [place] [address] | | | SERVICES, CORE | KORI [...]
[~2019-11-17 21:30] MED LIST: ACYCLOVIR400 MG PO; CYCLOBENZAPRINE10 MG PO
--- OUTSIDE RECORDS SUMMARY | 2019-11-17 21:32 | XMS ---
PreManage Notification: KATHY LEUNG Security Horologist Events No recent Security Events currently on file CRITERIA MET - [facility] - 2 Visits in 30 Days CARE PROVIDERS GRACIELA [facility]: [facility] 12/15/2017-[facility] AT PHONE: [phone] SHAHBAZ CLARKE Assembler For Puller Over Machine/Professor Of Fine Art [facility] PHONE: [phone] Shahbaz Clarke Assembler For Puller Over Machine/Professor Of Fine Art [facility] PHONE: Unknown Odilia has no Care Guidelines for this patient. E.D. VISIT COUNT (12 MO.) 2 [facility] [address] [facility] TOTAL 4 NOTE: Visits indicate total known visits. ED/UCC VISIT TRACKING (12 MO.) 11/17/2019 21:31 [facility] [place] TYPE: Emergency COMPLAINT: - SORE THROAT 10/29/2019 12:32 [facility] [place] TYPE: Emergency COMPLAINT: - POSS KIDNEY INFECTION DIAGNOSES: - Low back pain - Strain of muscle, fascia and tendon of lower back, initial en - Exposure to other specified factors, initial encounter 01/05/2019 01:28 [facility] TYPE: Emergency DIAGNOSES: 52706. flank pain 31424. Unspecified abdominal pain 12/21/2018 19:37 [facility] TYPE: Emergency DIAGNOSES: 79286. FLANK PAIN 10049. Acute pyelonephritis INPATIENT VISIT TRACKING (12 MO.) No inpatient visits to display in this time frame [id number]
== END 2019-11-17 22:39 | disposition home or self-care (01) ==
LOC: ED 21:30
DX: J02.8 Acute pharyngitis due to other specified organisms (principal)
CPT/HCPCS: 87880; 99283

== ENCOUNTER 2020-05-23 08:44 | Day surgery (SDC) | payer OTHER ==
[~2020-05-23] VITALS: Ht 170.2 cm; Wt 58.6 kg
[~2020-05-23 08:44] MED LIST changes: +NAPROSYN500 MG PO
--- NOTE | 2020-05-24 06:29 | OR ---
[facility] [address], [place] [address] Signed DATE OF OPERATION: 05/23/2020 SURGEON: Fuad Galicia MD PREOPERATIVE DIAGNOSIS: Maternal grandmother with colon cancer at young age. POSTOPERATIVE DIAGNOSES: 1. 3 x 6 mm polyp/polypoid lesion at 25 cm. 2. Minimal sigmoid diverticulosis. PROCEDURES: Colonoscopy with snare polypectomy, hot biopsy. ESTIMATED BLOOD LOSS: None. 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 She has been asked to see me for her initial screening colonoscopy. She has no lower GI complaints. She explained that her maternal grandmother developed colon cancer and from the colon cancer and when the Kathy was quite young. In addition, her brother lives down in [place]; he has some type of liver cancer. She is not sure if it started in the liver or it came from somewhere else. In the office, I gave Kathy a booklet on colonoscopy. We looked at that together along with the risks including, but not limited to gas bloating, crampy abdominal pain, bleeding, perforation requiring surgery, and missed diagnosis. We also reviewed the need for IV conscious sedation, she had expressed understanding and wished to proceed. DESCRIPTION OF PROCEDURE: Kathy was taken into our endoscopy suite and placed in the left lateral decubitus position. She was given IV sedation with 6 mg of Versed and 125 mcg of fentanyl. A digital rectal exam was performed and this was unremarkable. The adult colonoscope was introduced, advanced all around into the cecum under direct visualization of camera without difficulty. It took some extra sedation in removing the scope back and forth to get through the loop in her left colon. Eventually, the camera went quite nicely into the cecum. Her prep was quite excellent. We could easily see the appendiceal orifice and the ileocecal valve. The scope was slowly withdrawn. We encountered an interesting polypoid lesion back at 25 cm; it was probably 3 or 4 mm wide and 6 or 7 mm in length. Electronically Signed By: FUAD GALICIA MD 05/24/20 0629 PATIENT NAME: KATHY LEUNG OPERATIVE REPORT DATE OF : 67 REPORT #: [id number] PHYSICIAN: FUAD GALICIA MD PCP: HANNA DASH PA-C REPORT IS CONFIDENTIAL AND NOT TO BE RELEASED WITHOUT AUTHORIZATION [facility] [address], [place] [address] Signed We placed our wire over and we closed the wire, the outside mucosal sheath came off, and inside was a core that would be the size and shape of a toothpick. We had to take that off separately with the help of a hot biopsy forceps. In the end, the entire lesion was removed. We put the two pieces in separate jars. We also noted she has just a few diverticula in the sigmoid colon. They were quite small, few in number, and scattered about. The rectum itself was unremarkable. Upon retroflexion of scope, there was no additional pathology noted above the anal canal. After this, the gas was suctioned out. The colonoscope removed. Kathy tolerated the procedure quite well. RECOMMENDATIONS: I will see Kathy back in my office in 7 to 14 days to review her results. MD LETITIA Dillon/BERTHAL /[id number] cc: Hanna Dash Physician Adjuster Leader Copies: ~ Electronically Signed By: FUAD GALICIA MD 05/24/20 0629 PATIENT NAME: KATHY LEUNG OPERATIVE REPORT DATE OF : 67 REPORT #: [id number] PHYSICIAN: FUAD GALICIA MD PCP: HANNA DASH PA-C REPORT IS CONFIDENTIAL AND NOT TO BE RELEASED WITHOUT AUTHORIZATION
--- NOTE | 2020-05-25 17:16 | PATH ---
[facility] [address] [facility] [place] [address] Signed SPECIMEN(S): A COLON POLYP AT 25 CM SPECIMEN(S): B COLON POLYP AT 25 CM, BASE OF POLYP SPECIMEN SOURCE: A. COLON POLYP AT 25 CM B. COLON POLYP AT 25 CM, BASE OF POLYP CLINICAL HISTORY: Family history colon ca. Post-op: Colon polyp, diverticulosis. Rule out #2 base of polyp. Colonoscopy. MICROSCOPIC DESCRIPTION: Histologic sections of all submitted blocks are examined by light microscopy. These findings, together with the gross examination, support the pathologic diagnosis. FINAL PATHOLOGIC DIAGNOSIS: A. Colon, polyp at 25 cm, polypectomy: - Tubular adenoma. - Negative for high-grade dysplasia or malignancy. - See Comment. B. Colon, base of polyp at 25 cm, biopsy: - Fragment of cauterized colonic mucosa and fibromuscular soft tissue. - Negative for dysplasia or malignancy. - See Comment. COMMENT: As part of [facility] Quality Improvement Program, this case was reviewed by another member of our pathology staff. Regarding specimen A: A focal area of mucosal elastofibromatous change is seen adjacent to the tubular adenoma. A Congo-red stain (with appropriately staining controls) is negative for the presence of amyloid. NAL:NRT:cml:C2NR GROSS DESCRIPTION: Two specimens are received in two containers, labeled "NC." A. The specimen, labeled "NC," and designated on the requisition "colon polypectomy at 25 cm," is received in formalin and consists of one fragment of pink-roberts tissue (0.9 x 0.2 x 0.1 cm). The specimen is submitted entirely in cassette (A1). B. The specimen, labeled "NC," and designated on the requisition "#2 base of PATIENT NAME: KATHY LEUNG PATHOLOGY DATE OF : 67 REPORT #: [id number] PHYSICIAN: [facility] PCP: ETHAN ZAVALETA PA-C REPORT IS CONFIDENTIAL AND NOT TO BE RELEASED WITHOUT AUTHORIZATION [facility] [address] [place], [place] [address] Signed polyp, colon polypectomy at 25 cm," is received in formalin and consists of two fragments of pink-roberts tissue (0.7 x 0.3 x 0.2 cm in aggregate). The specimen is submitted entirely in cassette (B1). AC (under the direct supervision of a pathologist) The Gross Description was prepared using a voice recognition system. The report was reviewed for accuracy; however, sound-alike word errors, addition and/or deletions may occur. If there is any question about this report, please contact Client Services. PERFORMING LABORATORY: The technical component was performed by [facility], [address] [place] [id number] (Steam Fitter Supervisor Maintenance: Irma Gomez MD; CLIA# [id number]). [facility], [address] [address] (CLIA# [id number]). Diagnostician: Sissy Ignacio MD Pathologist Electronically Signed 05/25/2020 Copies: ~ PATIENT NAME: KATHY LEUNG PATHOLOGY DATE OF : 67 REPORT #: [id number] PHYSICIAN: [facility] PCP: ETHAN ZAVALETA PA-C REPORT IS CONFIDENTIAL AND NOT TO BE RELEASED WITHOUT AUTHORIZATION
== END 2020-05-23 11:05 | disposition home or self-care (01) ==
LOC: OPS 08:44 → DS 09:45 → OPS 09:45
PROVIDERS: ATTEND Colon & Rectal Surgery
PROC: 0DBE8ZZ Excision of Large Intestine, Via Natural or Artificial Opening Endoscopic (ICD-10-PCS; principal; 2020-05-23 09:45)
DX: Z12.11 Encounter for screening for malignant neoplasm of colon (principal); D12.6 Benign neoplasm of colon, unspecified; K57.30 Diverticulosis of large intestine without perforation or abscess without bleeding; Z79.899 Other long term (current) drug therapy; Z80.0 Family history of malignant neoplasm of digestive organs
CPT/HCPCS: 99153; G0500; J2250; J3010

== ENCOUNTER 2020-09-06 18:57 | Emergency (ER) | payer OTHER ==
[~2020-09-06] VITALS: Ht 170.2 cm; Wt 61.2 kg
== END 2020-09-06 20:32 | disposition home or self-care (01) ==
LOC: ED 18:57
DX: R10.9 Unspecified abdominal pain (principal)
CPT/HCPCS: 80053; 81001; 84703; 85025; 99284; A9270

== ENCOUNTER 2020-11-30 10:25 | Emergency (ER) | payer OTHER ==
[~2020-11-30] VITALS: Ht 170.2 cm; Wt 61.2 kg
--- OUTSIDE RECORDS SUMMARY | 2020-11-30 10:30 | XMS ---
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 PHONE: [phone] Shahbaz Clarke Coat Operator Insulator/Pediatric Critical Care Nurse [facility] PHONE: Unknown [facility] has no Care Guidelines for this patient. E.D. VISIT COUNT (12 MO.) [address] [facility] TOTAL 3 NOTE: Visits indicate total known visits. ED/UCC VISIT TRACKING (12 MO.) 11/30/2020 10:26 [facility] TYPE: Emergency COMPLAINT: - FEVER, COLD SYMPTOMS, SOB 11/21/2020 00:[address] [facility] [place] TYPE: Emergency COMPLAINT: - COUGH, FEVER DIAGNOSES: - Cough - COVID-19 09/06/2020 18:[address] [facility] [place] TYPE: Emergency COMPLAINT: - R FLANK PAIN DIAGNOSES: - Unspecified abdominal pain INPATIENT VISIT TRACKING (12 MO.) No inpatient visits to display in this time frame [email or web address]
[2020-11-30] MEDS ORDERED: TESSALON PERLE100 MG PO (12:50)
[2020-11-30] MEDS ORDERED: ZITHROMAX250 MG PO (12:50)
--- NOTE | 2020-11-30 13:59 | EKG ---
[facility] [address] [facility] [place], [place] [address] Signed Normal sinus rhythm Normal ECG No previous ECGs available Confirmed by ALDAIR THORPE MD ([id number]) on 11/30/2020 1:59:04 PM Electronically Signed By: ALDAIR THORPE MD 11/30/20 1359 PATIENT NAME: KATHY LEUNG Electrocardiogram DATE OF : 67 PHYSICIAN: ALDAIR THORPE MD REPORT #: [id number] REPORT IS CONFIDENTIAL AND NOT TO BE RELEASED WITHOUT AUTHORIZATION
== END 2020-11-30 13:15 | disposition home or self-care (01) ==
LOC: ED 10:25
DX: U07.1 COVID-19 (principal)
CPT/HCPCS: 71045; 93005; 93010; 94640; 94664; 99285-25